=== PATIENT | male | born 1960 | race Caucasian/White ===

== ENCOUNTER 2020-11-27 15:02 | Inpatient (IN) | payer BC, MEDICAID, SELFPAY ==
[~2020-11-27] VITALS: Ht 165.1 cm; Wt 86.2 kg
[2020-11-27 15:29] VITALS: BP 117/68
--- NOTE | 2020-11-27 15:30 | NUR ---
placed on HFNC 40L, 100% Fi02.
--- NOTE | 2020-11-27 15:33 | NUR ---
biba to bed 09
[2020-11-27 15:35] LABS: BASOPHILS % (AUTO) 0.2 % (0.0-2.0); HEMATOCRIT 40.8 % (36-52); HEMOGLOBIN 14.6 g/dL (12.0-18.0); LYMPHOCYTES # (AUTO) 0.5 K/uL (2.0-11.5); LYMPHOCYTES % (AUTO) 6.1 % (20.5-51.1); MEAN CORPUSCULAR HEMOGLOBIN 32 pg (27-31); MEAN CORPUSCULAR HGB CONC 36 g/dL (33-37); MEAN CORPUSCULAR VOLUME 89.6 fL (80-94); MONOCYTES # (AUTO) 0.6 K/uL (0.8-1.0); MONOCYTES % (AUTO) 7.3 % (1.7-9.3); NEUTROPHILS # (AUTO) 7.3 K/uL (1.8-7.7); NEUTROPHILS % (AUTO) 86.4 % (42.2-75.2); PLATELET COUNT (AUTO) 318 K/uL (140-450); RED BLOOD CELL COUNT(AUTO) 4.55 MIL/uL (4.20-6.10); RED CELL DISTRIBUTION WIDTH 13.9 % (11.6-13.7); WHITE BLOOD COUNT (AUTO) 8.4 K/uL (4.8-10.8)
[2020-11-27] MEDS ORDERED: cefTRIAXone 1,000 MG VIAL ONE (15:47)
[2020-11-27 15:50] LABS: ALBUMIN 2.3 g/dL (3.4-5.0); ANION GAP 13.5 (8-16); CARBON DIOXIDE 23.1 mmol/L (21-32); CREATININE 1.2 mg/dL (0.6-1.3); TOTAL BILIRUBIN 0.9 mg/dL (0.0-1.0)
[2020-11-27 15:59] LABS: POTASSIUM 2.6 mmol/L (3.5-5.1)
--- NOTE | 2020-11-27 16:01 | NUR ---
per EMS, brother information . no name given.
--- NOTE | 2020-11-27 16:08 | NUR ---
60 y/o male biba from home O2 sat at 58% on room air per medic. Told by family everyone COVID +. Pt initially on NRB 15L at 70% O2, on arrival switched to high flow with NRB 15L O2 sat 97% currently. Pt shows labored breathing with some retractions noted. RR shallow and even/symmetrical. PMH: HTN NKA
[2020-11-27] MEDS ORDERED: POTASSIUM CHL 20 MEQ/NACL 0.9% 1,000 ML IV ONE (16:15)
[2020-11-27] MEDS ORDERED: POTASSIUM CHL 20 MEQ/NACL 0.9% 1,000 ML IV SCH (16:40)
--- NOTE | 2020-11-27 16:40 | NUR ---
IV 20G ESTABLISHED IN PTS RIGHT FOREARM. GOOD BLOOD RETURN.
--- NOTE | 2020-11-27 16:47 | NUR ---
Bing NORWOOD walked to lab.
[2020-11-27] MEDS ORDERED: LORazepam 2 MG/ML VIAL IVP ONE ×3 (17:15→20:45)
--- NOTE | 2020-11-27 18:11 | NUR ---
DR. LAKE PAGED TO INFORM OF PTS O2 SAT 84% AND RR 43. PT IS ALOC WITH SOFT RESTRAINTS AND 1 MG ATIVAN GIVEN. WAITING FOR FURTHER ORDERS
--- NOTE | 2020-11-27 18:15 | NUR ---
Per Dr. Cabrera states, "Bipap if the pt can tolerte it, otherwise intubate if full code and family ok with it". RT at bedside made aware of bipap order. Spoke with brother Kavon for possible intubation, brother gives verbal consent for intubation.
--- NOTE | 2020-11-27 18:21 | NUR ---
RT at pt bedside, states pt unable to tolerate bipap and recommends intubation. Dr. Barton states, "wants to try bipap, not intubate at this time". Pt O2 84%, RR 50. Pt is ALOC pulling clothes off, attempting to get out of bed. Dr. Barton states, "give more ativan". Another mg of ativan given at this time.
--- NOTE | 2020-11-27 18:45 | NUR ---
RT at pt bedside to switch pt from high flow 40L and NRB 15L to BIPAP per Dr. Cabrera orders.
--- NOTE | 2020-11-27 18:56 | NUR ---
Pt on BIPAP settings at: IPAP 16, EPAP 10, rate 20, 100% O2. SPO2 at 72%, RR 56 , RT at bedside. Pt not tolerating well, pulling at mask, attempting to remove.
--- NOTE | 2020-11-27 19:16 | NUR ---
Report given to SOCORRO Muller, transferred care at this time.
[2020-11-27] MEDS ORDERED: DEXAMETHASONE 10 MG/ML VIAL IVP ONE (19:25)
[2020-11-27] MEDS ORDERED: NACL 0.9% 1,000 ML IV ONE (19:25)
--- NOTE | 2020-11-27 19:31 | NUR ---
RECEIVED REPORT FROM ALLISON QUINTANILLA.
--- NOTE | 2020-11-27 19:31 | NUR ---
MAEGAN Hubbard spoke with family member Kavon, gave consent if emergency to intubate.
--- NOTE | 2020-11-27 19:37 | NUR ---
MD SAL AT BEDSIDE TO ASSESS PT. PT A/O X 1. PT CONTINUOUSLY TRYING TO PULL OFF BIPAP AND STRUGGLING TO GET OUT OF BED. RESPIRATIONS REMAIN AT 47 O2 SAT WITH BIPAP INPLACE 96%. RESPIRATORY AT BEDSIDE.
[2020-11-27] MEDS ORDERED: KETAMINE 10 MG/ML UD SYR **ER IVP ONE (19:40)
[2020-11-27] MEDS ORDERED: KETAMINE 500 MG/5 ML VIAL ONE (19:44)
[2020-11-27] MEDS ORDERED: INTUBATION KIT MC ONE (20:02)
--- NOTE | 2020-11-27 20:02 | NUR ---
DR SAL REASSESSED AFETR RECEIVING 25MG OF KETAMINE. PT WILL BE INTUBATED AT THIS TIME. RESPIRATORY AT BEDSIDE WITH MD AND RN
[2020-11-27] MEDS ORDERED: PROPOFOL 1000 MG/100 ML PREMIX 100 ML IV ONE ×2 (20:14→20:45)
[2020-11-27] MEDS ORDERED: fentaNYL citrate 0.05 MG/ML VIAL IVP ONE (20:45)
[2020-11-27] MEDS ORDERED: fentaNYL citrate 0.05 MG/ML VIAL ONE (20:47)
[2020-11-27] MEDS ORDERED: LORazepam 2 MG/ML VIAL ONE (20:47)
--- NOTE | 2020-11-27 21:09 | NUR ---
PT INTUBATED AT 2031 BY MAEGAN MABRY WITH MD SAL AT BEDSIDE. INTUBATED WITH 7.5 ET TUBE, 23 AT TEETH AND 24 AT LIP LINE. 16 FR OG TUBE PLACED, PLACEMENT CHECKED, 16 FR F/C INSERTED WITH CLEAR SOUTH URINE RETURN. PT ON VOLUME CONTROL - 100%, RATE 22, FLOW 50, PEEP 10. PROPROFAL RUNNING AT 17 MCG, BOLUS OF NS, AND KCL 20MEQ/NS 0.9%. POST INTUBATION CHEST XRAY DONE. TUBE WITH APPROPRIATE PLACEMENT
[2020-11-27 21:20] VITALS: BP 68/37
--- NOTE | 2020-11-27 21:23 | NUR ---
RT CHANGED VENT SETTINGS TO PRESSURE CONTROL - PRESSURE 20, 100% O2, PEEP 10, AND RATE 22.
[2020-11-27] MEDS: PROPOFOL 1000 MG/100 ML PREMIX 100 ML IV PRN (21:29)
[2020-11-27] MEDS ORDERED: ETOMIDATE 20 MG/10 ML VIAL IVP ONE (22:00)
[2020-11-27] MEDS ORDERED: SUCCINYLCHOLINE CHLORIDE 200 MG/10 ML VIAL IVP ONE ×2 (22:00→22:05)
[2020-11-27] MEDS ORDERED: KETAMINE 500 MG/5 ML VIAL IVP ONE (22:05)
[2020-11-27] MEDS ORDERED: NOREPINEPHRINE 4 MG/4 ML VIAL IV ONE (22:56)
[2020-11-27] MEDS: NOREPINEPHRINE 4 MG in DEXTROSE 5% 250 ML IV PRN (23:00)
--- NOTE | 2020-11-27 23:34 | NUR ---
POST CHARTING - CALLED TO BESIDE PT DESAT W/ NRB+HFNC 40L 100% PT SPO2 FELL INTO HIGH 80S W/ RESPIRATIONS 40-60BPM RECOMMENDED INTUBATION DUE TO PT CONFUSION AND WOB PT PLACED ON BIPAP PER ED DR RODGERS - PT NEEDED 16/10 BUR 20 PT CONTINUES TO APPEAR ANXIOUS, CONFUSED, AND UTILIZING ACCESSORY MUSCLES. PT CONTINUING TO PULL AT MASK AND ATTEMPTING TO REMOVED CLOTHING. SPO2 IN 90s WITH RESPIRATIONS SAME 40-50s. POST ANXIETY MEDS PT CONTINUES TO BE TACHYPNEIC AND UTILIZING ACCESSORY MUSCLES. ED DR SAL + PA CAME TO BEDSIDE AND RE-ASSESSED PT AND PT WAS INTUBATED. 7.5 ETT @ 23CM (TEETH) PT INITIALLY PLACED ON VC AND PIP WAS HIGH AND PT WAS PLACED ON PC Pinsp 20 +10 f22 100% FIO2 AMBU AT BESIDE VENT PLUGGED INTO RED OUTLET WILL CONTINUE TO MONITOR Addendum: 11/27/20 at 2351 by YAZANAA CORRECTION - WHILE ON NRB + HFNC PT FELL INTO HIGH 70s/LOW 80s
[2020-11-28] VITALS (28 sets, daily range): BP systolic 91–138; BP diastolic 55–93
[2020-11-28] MEDS ORDERED: ALBUTEROL HFA MDI 90 MCG/ACTUATION 8 GM INH PRN (00:35)
[2020-11-28] MEDS ORDERED: DOCUSATE SODIUM 100 MG GELCAP PO PRN (00:35)
[2020-11-28] MEDS ORDERED: ONDANSETRON 4 MG/2 ML VIAL IM/IVP PRN (00:35)
[2020-11-28] MEDS ORDERED: POTASSIUM CHLORIDE 10 MEQ TABER PO PRN (00:35)
[2020-11-28] MEDS ORDERED: HYDROcodone/APAP 7.5/325 MG 1 TAB PO PRN (00:35)
[2020-11-28] MEDS ORDERED: ACETAMINOPHEN 325 MG TAB PO PRN (00:35)
--- NOTE | 2020-11-28 00:41 | NUR ---
EMPTIED 700ML OF URINE FROM F/C
--- NOTE | 2020-11-28 01:05 | NUR ---
RECEIVED REPORT FROM DIRECTOR IT PROJECT. PT WAS TRANSFERRED VIA GURNEY X2. PT ETT TO VENT. A/C PC- FIO2 100%, RATE-22, PEEP-10. RESPIRATION EVEN AND UNLABORED. LUNG SOUNDS DIMINISHED UPON AUSCULTATION. OGT IN PLACE CLAMPED. ABDOMEN SOFT, FLAT, NON-TENDER. PERIPHERAL ACCESSES ON THE RIGHT FOREARM 20G. INFUSING LEVOPHED @ 4MCG/MIN, PROPOFOL @ 15MCG/KG/MIN. LEFT FOREARM 18G INFUSING NS WITH 20MEQ K+ @ 100MLS/HR. SKIN WARM, DRY AND INTACT. HOB ELEVATED, BED LOW AND LOCKED, SAFETY PRECAUTIONS OBSERVED, ISOLATION PRECAUTION MAINTAINED. WILL CONTINUE TO MONITOR.
--- NOTE | 2020-11-28 01:10 | NUR ---
MRSA SWAB OBTAINED AND SENT TO THE LAB.
[2020-11-28] MEDS: NACL 0.9% 1,000 ML IV SCH ×3 (01:23→09:58)
--- NOTE | 2020-11-28 01:33 | NUR ---
Patient will be admitted to care of DR LAKE. Admited to ICU. Will go to room BED 5. Belongings list completed. Report to MORIAH QUINTANILLA.
[2020-11-28] MEDS: PROPOFOL 1000 MG/100 ML PREMIX 100 ML IV PRN ×2 (01:54→09:25)
[2020-11-28 02:24] LABS: PROTHROMBIN TIME 10.1 secs (10.8-13.4)
--- NOTE | 2020-11-28 02:30 | NUR ---
PT CONDITION REMAINS UNCHANGED, WILL CONTINUE TO MONITOR.
[2020-11-28 02:40] LABS: CHOL/HDL RATIO 4.4 (1-4.5); FREE T4 (FREE THYROXINE) 1.42 ng/dL (0.76-1.46); THYROID STIMULATING HORMONE 1.13 uIU/mL (0.34-3.74)
--- NOTE | 2020-11-28 04:00 | NUR ---
MORNING CARE PROVIDED. TURNED AND REPOSITIONED. WILL CONTINUE TO MONITOR.
--- NOTE | 2020-11-28 05:30 | NUR ---
GLUCERNA 1.2 STARTED @ SLOW RATE OF 10 MLS/HR, FWF 200ML Q4H. WILL CONTINUE TO MONITOR.
--- NOTE | 2020-11-28 06:00 | NUR ---
SPOKE TO CANDY( BROTHER) AND HE CONSENTED FOR PICC LINE INSERTION PER MD'S ORDER. GAVE UPDATE ABOUT PT'S CONDITION. ALL QUESTIONS ANSWERED.
--- NOTE | 2020-11-28 06:54 | NUR ---
PATIENT HAS BEEN SCREENED AND CATEGORIZED HIGH NUTRITION RISK. PATIENT WILL BE SEEN WITHIN 1-2 DAYS OF ADMISSION. 11/29/20-11/30/20 ELMO NOBLE MS, RDN
--- NOTE | 2020-11-28 07:15 | NUR ---
ENDORSED PT TO DAY SHIFT RN FOR CONTINUITY OF CARE.
--- NOTE | 2020-11-28 07:30 | NUR ---
BEDSIDE REPORT RECEIVED FROM INFANTRYMAN NURSE MORIAH, PT SEDATED TO RASS -3 WITH PROPOFOL AT 20MCG/KG/MIN, DRY WT 83KG, ETT TO VENT ACPC 100% FIO2, RR 22, PEEP 10, EQUAL CHEST RISE AND FALL, NO DISTRESS NOTED, SKIN WARM DRY COLOR WNL, SR ON MONITOR, ON LEVOPHED AT 4MCG/MIN, BP WNL, IVF NS AT 100ML/HR, PIVs TO RFA 20G & LEFT FA 18G, SITES WNL, OGT IN PLACE, GLUCERNA INFUSING AT 10ML/HR, ABD SOFT NON DISTENDED, MARION CATH IN PLACE, DRAINING CLEAR DARK YELLOW URINE TO GRAVITY. PT IN BILAT SOFT WRIST RESTRAINTS, NO INJURIES NOTED, PLAN OF CARE REVIEWED, ALL SAFETY MEASURES IN PLACE,
--- NOTE | 2020-11-28 08:32 | NUR ---
DR MACKEY AT BEDSIDE.
--- NOTE | 2020-11-28 08:35 | NUR ---
DR MACKEY AT [facility]
[2020-11-28] MEDS: ASCORBIC ACID 500 MG TAB PO SCH (09:26)
[2020-11-28] MEDS: AZITHROMYCIN 250 MG TAB PO SCH (09:26)
[2020-11-28] MEDS: ZINC SULF 220 MG CAP PO SCH (09:26)
[2020-11-28 10:06] LABS: BASOPHILS % (AUTO) 0.4 % (0.0-2.0); HEMATOCRIT 39.8 % (36-52); HEMOGLOBIN 13.7 g/dL (12.0-18.0); LYMPHOCYTES # (AUTO) 0.5 K/uL (2.0-11.5); LYMPHOCYTES % (AUTO) 4.8 % (20.5-51.1); MEAN CORPUSCULAR HEMOGLOBIN 32 pg (27-31); MEAN CORPUSCULAR HGB CONC 35 g/dL (33-37); MEAN CORPUSCULAR VOLUME 91.6 fL (80-94); MONOCYTES # (AUTO) 0.6 K/uL (0.8-1.0); MONOCYTES % (AUTO) 5.7 % (1.7-9.3); NEUTROPHILS # (AUTO) 9.5 K/uL (1.8-7.7); NEUTROPHILS % (AUTO) 89.1 % (42.2-75.2); PLATELET COUNT (AUTO) 288 K/uL (140-450); RED BLOOD CELL COUNT(AUTO) 4.34 MIL/uL (4.20-6.10); RED CELL DISTRIBUTION WIDTH 14.5 % (11.6-13.7); WHITE BLOOD COUNT (AUTO) 10.7 K/uL (4.8-10.8)
[2020-11-28 10:25] LABS: ALBUMIN 2.1 g/dL (3.4-5.0); CREATININE 1.3 mg/dL (0.6-1.3); TOTAL BILIRUBIN 0.7 mg/dL (0.0-1.0)
[2020-11-28] MEDS ORDERED: KCL 20 MEQ/WATER INJ PREMIX 200 ML IV ONE (11:00)
--- NOTE | 2020-11-28 11:00 | NUR ---
Reva PARIKH STARTED PER ORDER FOR HYPOKALEMIA 3.0 THIS AM
[2020-11-28] MEDS: NOREPINEPHRINE 4 MG in DEXTROSE 5% 250 ML IV PRN (12:13)
--- NOTE | 2020-11-28 14:00 | NUR ---
BP WNL, LEVOPHED HELD FOR NOW
--- NOTE | 2020-11-28 16:05 | NUR ---
PT REMAINS ON DOCUMENTED VENT SETTINGS. PT SEDATED NOT IN ANY DISTRESS AT THIS TIME. ETT SECURE WITH A PATENT AIRWAY..
[2020-11-28] MEDS ORDERED: remdesivir COMMUNICATION ORDER 1 EA MISC MC PRN (16:40)
--- NOTE | 2020-11-28 17:31 | NUR ---
CHG WIPE DONE, ORAL CARE DONE, MARION CARE DONE, LINENS CHANGED, OGT RESIDUAL <120, FEEDING RATE INCREASED TO 20ML/HR. PT REMAINS ON PROPOFOL FOR SEDATION TO RASS -3, K RIDER CONTINUES TO INFUSE, IV SITES WNL, AWAITING PICC LINE NURSE FOR PICC INSERTION.
--- NOTE | 2020-11-28 18:41 | NUR ---
PICC LINE NURSE YANCI AT BEDSIDE
--- NOTE | 2020-11-28 18:53 | NUR ---
TELEPHONE CONSENT OBTAINED FOR CONVALESCENT PLASMA TRANSFUSION FROM PT'S BROTHER CANDY, 2 NURSE VERIFIED
--- NOTE | 2020-11-28 20:00 | NUR ---
RECEIVED REPORT FROM DAY SHIFT RN. PT ETT TO VENT. A/C PC- FIO2 75%, RATE-22, PEEP-10. RESPIRATION EVEN AND UNLABORED. LUNG SOUNDS DIMINISHED UPON AUSCULTATION. CHEST EXPANSION SYMMETRICAL. OGT TO FEEDING RUNNING GLUCERNA 1.2 @20MLS/HR WITH FWF [id number]. ABDOMEN SOFT, FLAT, NON-TENDER. PERIPHERAL ACCESSES ON THE RIGHT FOREARM 20G. LEFT FOREARM 18G. RIGHT UPPER ARM PICC LINE. ALL LINES ASYMPTOMATIC, PATENT AND INTACT. PT ON PROPOFOL @ 30 MCG/KG/HR AND NS @ 100ML/HR. SKIN WARM, DRY AND INTACT. MARION CATHETER IN PLACE DRAINING TO GRAVITY. HOB ELEVATED, BED LOW AND LOCKED, SAFETY PRECAUTIONS OBSERVED, ISOLATION PRECAUTION MAINTAINED. WILL CONTINUE TO MONITOR.
[2020-11-28] MEDS: FAMOTIDINE 20 MG/2 ML VIAL IV SCH (20:24)
--- NOTE | 2020-11-28 22:00 | NUR ---
INCREASED FEEDING RATE TO 30 MLS/HR. 60 RESIDUALS NOTED. WILL CONTINUE TO MONITOR PT.
[2020-11-29] VITALS (32 sets, daily range): BP systolic 99–141; BP diastolic 56–88
--- NOTE | 2020-11-29 | NUR ---
PT WAS TURNED AND REPOSITIONED. PRESSURE AREAS OFF LOADED. SUCTIONED AND ORAL CARE PROVIDED. WILL CONTINUE TO MONITOR.
--- NOTE | 2020-11-29 | NUR ---
TURNED AND REPOSITIONED PT. PRESSURE AREAS OFFLOADED. WILL CONTINUE TO MONITOR.
--- NOTE | 2020-11-29 02:31 | NUR ---
INCREASED FEEDING RATE TO 40MLS/HR(GOAL RATE). WILL CONTINUE TO MONITOR.
--- NOTE | 2020-11-29 04:00 | NUR ---
MORNING CARE PROVIDED. ORAL CARE, MARION CARE, MATHEW CARE PROVIDED. TURNED AND REPOSITIONED. PRESSURE AREAS OFF LOADED. WILL CONTINUE TO MONITOR.
[2020-11-29] MEDS: NACL 0.9% 1,000 ML IV SCH ×2 (05:22→17:25)
[2020-11-29] MEDS: PROPOFOL 1000 MG/100 ML PREMIX 100 ML IV PRN ×4 (05:23→21:41)
[2020-11-29] MEDS ORDERED: POTASSIUM CHLORIDE 20% 40 MEQ/15 ML UDC GT PRN (06:00)
[2020-11-29 06:16] LABS: BASOPHILS % (AUTO) 0.4 % (0.0-2.0); HEMATOCRIT 38.5 % (36-52); LYMPHOCYTES # (AUTO) 0.4 K/uL (2.0-11.5); LYMPHOCYTES % (AUTO) 3.8 % (20.5-51.1); MEAN CORPUSCULAR HEMOGLOBIN 32 pg (27-31); MEAN CORPUSCULAR HGB CONC 34 g/dL (33-37); MEAN CORPUSCULAR VOLUME 93.2 fL (80-94); MONOCYTES # (AUTO) 0.8 K/uL (0.8-1.0); MONOCYTES % (AUTO) 6.4 % (1.7-9.3); NEUTROPHILS # (AUTO) 10.5 K/uL (1.8-7.7); NEUTROPHILS % (AUTO) 89.4 % (42.2-75.2); PLATELET COUNT (AUTO) 282 K/uL (140-450); RED BLOOD CELL COUNT(AUTO) 4.13 MIL/uL (4.20-6.10); RED CELL DISTRIBUTION WIDTH 14.5 % (11.6-13.7); WHITE BLOOD COUNT (AUTO) 11.8 K/uL (4.8-10.8)
[2020-11-29 07:05] LABS: CREATININE 0.9 mg/dL (0.6-1.3)
--- NOTE | 2020-11-29 07:30 | NUR ---
RECEIVED REPORT FROM PALLET SORTER RN. ETT TO VENT. A/C P/C FIO2 75% R 22, P 10. RASS -3, FLACC 0, RESPIRATION EVEN AND UNLABORED. OGT TO FEEDING RUNNING GLUCERNA 1.2 @ 40MLS/HR WITH FWF [id number]. ABDOMEN SOFT, FLAT, NON-TENDER. IV ON THE RIGHT FOREARM 20G. LEFT FOREARM 18G. RIGHT UPPER ARM PICC LINE. ON PROPOFOL @ 30 MCG/KG/HR AND NS @ 100ML/HR. SKIN WARM, DRY AND INTACT. MARION CATHETER IN PLACE DRAINING TO GRAVITY. HOB ELEVATED, BED LOW AND LOCKED, SAFETY PRECAUTIONS OBSERVED, ISOLATION PRECAUTION MAINTAINED. WILL CONTINUE TO MONITOR.
[2020-11-29 08:11] LABS: ANION GAP 15.6 (8-16); CARBON DIOXIDE 22.4 mmol/L (21-32)
[2020-11-29] MEDS ORDERED: remdesivir CLINICAL MONITORING 1 EA MISC MC PRN (08:20)
--- NOTE | 2020-11-29 08:50 | NUR ---
DUE MORNING MEDS GIVEN. ORAL CARE DONE, MARION CARE DONE. REPOSITIONED PT
[2020-11-29] MEDS: AZITHROMYCIN 250 MG TAB PO SCH (09:00)
[2020-11-29] MEDS: ASCORBIC ACID 500 MG TAB PO SCH (09:00)
[2020-11-29] MEDS: FAMOTIDINE 20 MG/2 ML VIAL IV SCH ×2 (09:00→20:12)
[2020-11-29] MEDS: ZINC SULF 220 MG CAP PO SCH (09:00)
[2020-11-29] MEDS ORDERED: REMDESIVIR (EUA) 200 MG in NACL 0.9% 100 ML IV SCH (10:00)
[2020-11-29 10:06] LABS: T4 (THYROXINE) 8.4 ug/dL (4.5-12.0)
--- NOTE | 2020-11-29 11:24 | NUR ---
SOCIAL WORK NOTE: Patient's Orientation Unable To Assess Information Provided By CANDY ZIEGLER - Comments SW WAS UNABLE TO MEET PATIENT AT BEDSIDE. SW COMPLETED ASSESSMENT WITH PATIENT'S BROTHER. Children'S Tutor Nursery, Realtionship and Phone Number CANDY DALEY [phone] Healthcare Power of Plate Glass Polisher No Does Patient Have a POLST No Identifying Problems No Social Work Triggers Is A Social Work Consult Needed No Mandate Report Filed No Explanation Of Identifying Problems PATIENT IS A 60-YEAR-OLD MAELE ADMITTED FOR COVID, HYPOXIA, AND HYPONATREMIA. PATIENT HAS PMHX OF HYPERTENSION. PATIENT'S BROTHER DENIED HX OF SUBSTANCE ABUSE OR MENTAL HEALTH. Admitted From Home Pre-Admission Level Of Functioning Status Independent/Ambulatory Prior Resources/Services Used In Last 12 Months No Prior Resources Used Prior DME No Prior DME Used Dialysis Comments N/A Living Situation Lives With Family House Patient Had Caregiver No Home Support No Caregiver Issues Financial Issues No Known Financial Issue Factors/Needs No D/C Needs Identified Pt/Rep Participated In Discharge Plan Yes Patient/Family Agress With Discharge Plan Yes Discharge Plan Comments TENTATIVE DISCHARGE PLAN IS FOR PATIENT TO RETURN HOME. DC Plan Status Initiated
--- NOTE | 2020-11-29 11:29 | NUR ---
11/29/20 RD INITIAL ASSESSMENT COMPLETED. PLEASE REFER TO NUTRITION ASSESSMENT UNDER CARE ACTIVITY FOR ESTIMATED NUTRITIONAL NEEDS. RD RECOMMENDATIONS: 1. RECOMMEND CONTINUE TF GLUCERNA 1.2@40MLS/HR (PROVIDES 1152KCAL, 57.6G PROTEIN - WITH CALORIES FROM PROPOFOL, SUFFICIENT TO MEET ~75% ESTIMATED ENERGY AND PROTEIN NEEDS). 2. CONSIDER INCREASING TF RATE IF TOLERATED WELL BY PATIENT TO GLUCERNA 1.2@ 55MLS/HR (WILL MEET 100% ESTIMATED ENERGY & PROTEIN NEEDS) 3. F/U 2-3 DAYS; HIGH RISK ANDREA SANZ MBA, RD
--- NOTE | 2020-11-29 12:00 | NUR ---
FOLLOWED UP WITH BLOOD BANK REGARDING CONVALESCENT PLASMA. BBK WILL THAW PLASMA AND WILL CALL WHEN READY
--- NOTE | 2020-11-29 15:20 | NUR ---
CONVALESCENT PLASMA TRANSFUSION STARTED. PRODUCT AND PT ID VERIFIED BY 2 RN PRIOR
[2020-11-29 15:26] LABS: MAGNESIUM 2.9 mg/dL (1.8-2.4); PHOSPHORUS 2.3 mg/dL (2.5-4.9)
--- NOTE | 2020-11-29 16:10 | NUR ---
CONVALESCENT PLASMA TRANSFUSION. NO ADVERSE REACTIONS NOTED, VSS
--- NOTE | 2020-11-29 19:23 | NUR ---
RECEIVED REPORT FROM DAY SHIFT RN. PT ETT TO VENT. A/C PC- FIO2 75%, RATE-22, PEEP-10. RESPIRATION EVEN AND UNLABORED. LUNG SOUNDS DIMINISHED UPON AUSCULTATION. CHEST EXPANSION SYMMETRICAL. OGT TO FEEDING RUNNING GLUCERNA 1.2 @ 40MLS/HR WITH FWF 200ML Q4HR. ABDOMEN SOFT, FLAT, NON-TENDER. PERIPHERAL ACCESSES ON THE RIGHT FOREARM 20G. LEFT FOREARM 18G. RIGHT UPPER ARM PICC LINE. ALL LINES ASYMPTOMATIC, PATENT AND INTACT. PT ON PROPOFOL @ 45 MCG/KG/HR AND NS @ 100ML/HR. SKIN WARM, DRY AND INTACT. MARION CATHETER IN PLACE DRAINING TO GRAVITY. HOB ELEVATED, BED LOW AND LOCKED, SAFETY PRECAUTIONS OBSERVED, ISOLATION PRECAUTION MAINTAINED. WILL CONTINUE TO MONITOR.
--- NOTE | 2020-11-29 22:00 | NUR ---
PT CONDITION REMAINS UNCHANGED. WILL CONTINUE TO MONITOR.
--- NOTE | 2020-11-29 23:02 | NUR ---
PT RECEIVED ON PC 20 +10, f22 ON 75% FIO2 WHICH WAS TITRATED TO 70% AND RADHA WELL. PT HAS 7.5 ETT SECURED AT 23CM. AMBU IS AT BEDSIDE & VENT PLUGGED INTO RED OUTLET. WILL CONTINUE TO MONITOR
[2020-11-30] VITALS (35 sets, daily range): BP systolic 86–141; BP diastolic 45–92
[2020-11-30] MEDS: NACL 0.9% 1,000 ML IV SCH ×3 (02:53→21:17)
[2020-11-30] MEDS: PROPOFOL 1000 MG/100 ML PREMIX 100 ML IV PRN ×3 (02:54→14:00)
[2020-11-30 06:34] LABS: BASOPHILS % (AUTO) 0.3 % (0.0-2.0); EOSINOPHILS % (AUTO) 0.1 % (0.0-4.0); HEMATOCRIT 39.7 % (36-52); HEMOGLOBIN 13.5 g/dL (12.0-18.0); LYMPHOCYTES # (AUTO) 0.7 K/uL (2.0-11.5); LYMPHOCYTES % (AUTO) 4.7 % (20.5-51.1); MEAN CORPUSCULAR HEMOGLOBIN 32 pg (27-31); MEAN CORPUSCULAR HGB CONC 34 g/dL (33-37); MEAN CORPUSCULAR VOLUME 93.9 fL (80-94); MONOCYTES # (AUTO) 0.4 K/uL (0.8-1.0); MONOCYTES % (AUTO) 2.5 % (1.7-9.3); NEUTROPHILS # (AUTO) 14.3 K/uL (1.8-7.7); NEUTROPHILS % (AUTO) 92.4 % (42.2-75.2); PLATELET COUNT (AUTO) 221 K/uL (140-450); RED BLOOD CELL COUNT(AUTO) 4.23 MIL/uL (4.20-6.10); RED CELL DISTRIBUTION WIDTH 14.4 % (11.6-13.7); WHITE BLOOD COUNT (AUTO) 15.5 K/uL (4.8-10.8)
[2020-11-30 07:03] LABS: ANION GAP 13.8 (8-16); CARBON DIOXIDE 24.9 mmol/L (21-32); CREATININE 0.8 mg/dL (0.6-1.3); POTASSIUM 3.7 mmol/L (3.5-5.1); TOTAL BILIRUBIN 1.1 mg/dL (0.0-1.0)
--- NOTE | 2020-11-30 07:32 | NUR ---
RECEIVED REPORT FROM ZYGLO INSPECTOR RN. ETT TO VENT. A/C P/C FIO2 60% R 22, P 10. RASS -3, FLACC 0, RESPIRATION EVEN AND UNLABORED. OGT TO FEEDING RUNNING GLUCERNA 1.2 @ 40MLS/HR WITH FWF [id number]. ABDOMEN SOFT, FLAT, NON-TENDER. IV ON THE RIGHT FOREARM 20G. LEFT FOREARM 18G. RIGHT UPPER ARM PICC LINE. ON PROPOFOL @ 45 MCG/KG/HR AND NS @ 100ML/HR. SKIN WARM, DRY AND INTACT. MARION CATHETER IN PLACE DRAINING TO GRAVITY. HOB ELEVATED, BED LOW AND LOCKED, SAFETY PRECAUTIONS OBSERVED, ISOLATION PRECAUTION MAINTAINED. WILL CONTINUE TO MONITOR.
[2020-11-30] MEDS: ASCORBIC ACID 500 MG TAB PO SCH (09:00)
[2020-11-30] MEDS: ZINC SULF 220 MG CAP PO SCH (09:00)
[2020-11-30] MEDS: AZITHROMYCIN 250 MG TAB PO SCH (09:00)
[2020-11-30] MEDS: FAMOTIDINE 20 MG/2 ML VIAL IV SCH ×2 (09:00→20:31)
--- NOTE | 2020-11-30 09:15 | NUR ---
DUE MORNING MEDS GIVEN. ORAL CARE, MARION CARE DONE. REPOSITIONED PT
--- NOTE | 2020-11-30 09:25 | NUR ---
PT DESATURATING TO 79%. PT FIO2 INCREASED TO 100%. PT TACHYPNEIC @38 RR. NURSE AWARE OF PT STATUS. WILL CONTINUE TO MONITOR.
--- NOTE | 2020-11-30 09:30 | NUR ---
SEEN BY DR SIMMONS. NOTIFIED ABOUT INCREASED LABOR OF BREATHING. ORDERED MORPHINE DRIP
--- NOTE | 2020-11-30 09:35 | NUR ---
SPO2 ON 100% IS 91%. WILL CONTINUE TO MONITOR.
[2020-11-30] MEDS: MORPHINE SULFATE 50 MG in NACL 0.9% 45 ML IV PRN ×2 (10:28→17:57)
--- NOTE | 2020-11-30 10:46 | NUR ---
DISCHARGE PLANNING: CONTACTED CARLTON FORRESTER [phone] AT [facility] TO PROVIDE UPDATES, NO ANSWER. LEFT MESSAGE. WILL FOLLOW UP. Addendum: 11/30/20 at 1217 by Shellie Ochoa CONTACTED [employer] [facility] [place] [phone] OPT 6, ABLE TO SPEAK TO LEONOR [employer] COSMETIC ASSEMBLER. PER LEONOR THEY HAVE ONE DAY 11/27/2020 APPROVED FOR NOW WITH AUTH [id number]. SHE ALSO STATED THERE IS NO CM ASSIGNED YET AT THIS TIME. SHE ALSO STATED THAT WE NEED TO FOLLOW UP AGAIN FOR CM ASSIGNED. I ASKED HER IF WE HAVE TO TRANSFER THE PATIENT TO CONTRACTED FACILITY. PER LEONOR SHE IS NOT ABLE TO ANSWER THAT BECAUSE SHE IS NOT A GRAB JACK WORKER. WILL FOLLOW UP. Addendum: 11/30/20 at 1550 by Shellie Ochoa CONTACTED [facility] AGAIN AT [phone] OPT 6, ABLE TO SPEAK TO SOUTH. PER SOUTH, I NEED TO CALL THE PRIOR AUTH NUMBER WHICH IS THE SAME NUMBER THAT I CALLED. SHE STATED SHE WILL GO AHEAD AND TRANSFER ME. PICKED UP BY JERILYN Livingston PER JERILYN CM ASSIGNED IS CRISTIN MCKINNEY, HOWEVER HE DOES NOT HAVE THE NUMBER NOR E MAIL AVAILABLE AT THIS TIME. HE STATED THEY JUST ASSIGNED THE CM AND WILL NOT HAVE ACCESS TO RELAY THE MESSAGE TO HER. HE STATED THAT IF THEY NEED ANYTHING THEY WILL CALL US FOR SURE. I INQUIRED IF THEY WANT TO TRANSFER THE PATIENT SINCE WE ARE NOT CONTRACTED WITH [facility]. PER JERILYN HE IS NOT THE RIGHT PERSON TO ASK. INFORMED HIM THAT IS WHY I I ASKED FOR THE CM ASSIGNED. HE STATED TO CALL BACK AGAIN TOMORROW TO FOLLOW UP. WILL FOLLOW UP. Addendum: 12/01/20 at 1141 by Shellie Ochoa CM CONTACTED [facility] AT [phone] OPT 6, ABLE TO SPEAK TO [facility] JULIA Rice I ASKED TO BE TRANSFERRED TO A . SHE STATED THEY DO NOT HAVE ANY CONTACT INFORMATION OF THE CM ASSIGNED. PER JULIA, THE CM WILL BE THE ONE TO CONTACT US IF THEY HAVE ANY QUESTIONS OR RECOMMENDATIONS AND THE CASE IS STILL UNDER REVIEW. I INQUIRED IF THEY WANT THEIR PATIENT TO BE TRANSFERRED TO A CONTRACTED FACILITY, SHE ANSWER SHE WOULD NOT KNOW THAT. I ASKED IF HOW LONG WILL IT TAKE FOR THE CM TO REVIEW THE CASE. SHE STATED IT WILL TAKE UP TO 5 DAYS. AND I TOLD HER WE HAVE TO WAIT THAT LONG AND PATIENT HAVE BEEN HERE 4 DAYS AND WE DID NOT RECEIVE ANY AUTH FROM THEM. SHE STATED IT HAS BEEN APPROVED FOR 1 DAY AUTH [id number]. SHE STATED THE CM WILL CONTACTING ME IF THEY HAVE ANY QUESTIONS OR CONCERNS. Addendum: 12/01/20 at 1254 by Shellie Ochoa COORDINATOR MIGUEL ANGEL MADE AWARE. HE STATED HE WILL TRY TO REACH OUT WELL. PER MIGUEL ANGEL COORDINATOR, FATOUMATA CROWLEY IS THE CM ASSIGNED BUT THE REP THAT HE SPOKE TO DID NOT PROVIDE ANY CONTACT INFO FOR FATOUMATA. INFORMED HIM THAT I HAVE FATOUMATA'S DIRECT NUMBER. CONTACTED FATOUMATA AT [phone], NO ANSWER. LEFT MESSAGE. RECEIVED A CALL BACK FROM CARLTON HAM STATING THAT SHE IS TRYING TO GET A HOLD OF HER FORENSIC AUDIT EXPERT TO DISCUSS REPATRIATION. SHE STATED THEY DO NOT TRANSFER OUT PATIENT'S THAT ARE COVID, HOWEVER SHE WANTED TO MAKE SURE THAT IT STILL THE SAME. SHE STATED SHE WILL CALL ME BACK FOR ANSWERS LATER TODAY. WILL FOLLOW UP. Addendum: 12/01/20 at 1547 by Shellie Ochoa CM RECEIVED A CALL BACK FROM CARLTON HAM OF [employer] STATING THAT PATIENT NEED NOT BE TRANSFERRED AT THIS TIME DUE TO TO HIS CONDITION. SHE ALSO STATED THAT SHE WILL BE FAXING AUTH UNTIL THE AND TODAY IS STILL PENDING REVIEW. PROVIDED HER OF THE FAX NUMBER. Addendum: 12/02/20 at 1149 by Shellie Ochoa CM PER CARLTON HAM OF [employer] [facility], PATIENT HAS AN HMO WELL AND REQUESTED FOR THE FAMILY TO CALL [facility] [phone] FOR THEM TO BE ABLE TO SELECT A MEDICAL GROUP. CONTACTED PATIENT'S BROTHER CANDY LOW AT [phone]. PER CANDY THEY ALREADY SPOKE TO CHANDRA AND WILL BE CALLING US BACK WITH THE IPA INFORMATION. WILL FOLLOW UP. Addendum: 12/03/20 at 1348 by Shellie Ochoa CM RECEIVED A CALL FROM OUT PATIENT CARLTON BOJORQUEZ [phone] AT [facility], STATING THAT PATIENT IS ASSIGNED TO [facility] IPA EFFECTIVE 11/06/2020 AND ALLIED IS DELEGATED. PCP ASSIGNED IS DR. JOSE ANGEL QUIGLEY [phone]. SHE STATED TO INFORM THE FAMILY TO CALL CUSTOMER SERVICE AT [phone] IF THEY CHOOSE TO CHANGE THE IPA. REACHED OUT TO PATIENT'S BROTHER CANDY. PROVIDED HIM ALL THE INFORMATION. PER CANDY, I NEED TO CONTACT HIS BROTHER'S HOST/HOSTESS RESTAURANT LEN ESCAMILLA AT [phone]. ABLE TO SPEAK TO LEN. HE STATED HE IS HAVING A HARD TIME CONTACTING THE INSURANCE AND WHEN HE WAS ABLE TO, THE INFORMATION THEY PROVIDED IS LIMITED. HE ALSO MENTIONED THAT INSURANCES NOW CHANGED THEIR PROTOCOL AND HARD FOR THEM BROKERS TO GET MORE INFORMATION. PROVIDED HIM OF THE CUSTOMER'S SERVICE NUMBER IF HE HAS ANY QUESTIONS. PER LEN, HE WILL REACH OUT TO THE INSURANCE. ANI WAFER FAB OPERATOR MADE AWARE. WILL FOLLOW UP. Addendum: 12/04/20 at 1130 by Shellie Ochoa CM CONTACTED CARLTON HAM OF [facility] TO PROVIDE UDATE, NO ANSWER. LEFT MESSAGE. WILL FOLLOW UP. Addendum: 12/04/20 at 1428 by Shellie Ochoa CM CARLTON RINCON OF [facility] [phone] INFORMED OF THIS PATIENT. PROVIDED HER UPDATES ON THE PATIENT'S CONDITION. RECEIVED A CALL BACK FROM CARLTON HAM OF [employer]. UPDATED HER OF THE PATIENT'S CONDITION. PROVIDED ANGEL AT [facility]'S NUMBER. Addendum: 12/07/20 at 1400 by Shellie Ochoa CM REMAINS INTUBATED TO VENT, FIO2 100%, PEEP 14, 02 SAT 92% AND SEDATED WITH MORPHINE AND PROPOFOL. CONTACTED CARLTON RINCON OF [employer], NO ANSWER. LEFT MESSAGE. WILL FOLLOW UP. Addendum: 12/07/20 at 1403 by Shellie Ochoa CONTACTED CARLTON HAM [facility] AT [phone], NO ANSWER. LEFT MESSAGE. WILL FOLLOW UP. Addendum: 12/07/20 at 1612 by Shellie Ochoa RECEIVED A CALL BACK FROM CARLTON HAM [facility], SHE STATED [facility] WILL BE DELEGATED. SHE ALSO MENTIONED THAT SHE SPOKE TO CARLTON RINCON AT [facility] WELL AND PENDING AUTH FROM [facility] IS [id number]. PER CARLTON HAM TO CALL HER IF THERE WILL BE ANY ISSUES. CONTACTED CARLTON RINCON OF [facility] TO CONFIRM AUTH, NO ANSWER. LEFT MESSAGE. WILL FOLLOW UP. Addendum: 12/08/20 at 1114 by Shellie Ochoa CM CARLTON RINCON OF [facility] UPDATED OF THE PATIENT'S CONDITION. SHE PROVIDED THE SAME TRACKING NUMBER [id number] WHAT CARLTON HAM OF [employer] PROVIDED ME YESTERDAY. SHE STATED IT IS AUTHORIZED UNTIL YESTERDAY AND PENDING CLINICAL REVIEW FOR TODAY. SHE ALSO MENTIONED LONG THE PLAN HAD BEEN NOTIFIED ON THE DAY OF ADMISSION, THEY ARE OK WITH LATE NOTIFICATION SINCE [facility] ASSIGNED IT LATE. Addendum: 12/08/20 at 1157 by Shellie cOhoa CM UPDATED CLINICALS SENT TO [facility] AT [phone]. Addendum: 12/14/20 at 1219 by Shellie Ochoa CM CONTACTED SERGEY [employer] [place] AT [phone] TO PROVIDE UPDATES AND TO FOLLOW UP WITH AUTH, NO ANSWER. UNABLE TO LEAVE MESSAGE, MAILBOX IS FULL. WILL FOLLOW UP. Addendum: 12/14/20 at 1542 by Shellie Ochoa CM CONTACTED CM SERGEY [employer] [facility] AGAIN, NO ANSWER. UNABLE TO LEAVE MESSAGE DUE TO MAILBOX IS FULL. WILL FOLLOW UP. Addendum: 12/15/20 at 1423 by Shellie Ochoa CM REMAINS INTUBATED TO VENT, FIO2 80%, PEEP13, O2 SAT 95%. SEDATED WITH PROPOFOL AND MORPHINE. ON LEVOPHED DRIP. WAS ON DILTIAZEM DRIP YESTERDAY FOR HR 170'S, CONVERTED TO SR 2/9 AT 0000. PER NEPHRO - NO REQUIREMENT FOR STEEPLE JACK AT THIS TIME. PER PULMO - PLAN FOR TRACH ONCE STABLE FROM HYPOXEMIA. SURGERY CONSULTED. Addendum: 12/15/20 at 1425 by Shellie Ochoa CM CARLTON CARD [facility] UPDATED OF THE PATIENT'S CONDITION HOWEVER HALF-WAY THROUGH THE UPDATES SHE STATED SHE WILL CALL ME BACK BECAUSE HER [employer] AUDIT EXPERT IS CALLING HER. WILL FOLLOW UP. Addendum: 12/16/20 at 1205 by Shellie Ochoa CM REMAINS ORALLY INTUBATED TO VENT, FIO2 80%, PEEP 13, O2 SAT 95%. PER PULMO - WILL LIKELY REQUIRE TRACHEOSTOMY ONCE MORE STABLE FROM A HYPOXEMIA STANDPOINT. Addendum: 12/21/20 at 0912 by Shellie Ochoa CONTACTED [facility] AT [phone] TO PROVIDE UPDATES, NO ANSWER. LEFT MESSAGE. WILL FOLLOW UP. Addendum: 12/25/20 at 1208 by Shellie Ochoa CM [facility] [phone] UPDATED OF THE PATIENT'S CONDITION. PER [facility] STAY IS AUTHORIZED TRACKING NUMBER [id number]. SHE ASKED IF GOALS OF CARE HAVE BEEN DISCUSSED WITH THE FAMILY, INFORMED HER THAT DR. SIMMONS WILL DISCUSS IT ( DISCUSSED DURING BED HUDDLE) WITH THE FAMILY. Addendum: 12/28/20 at 1138 by Shellie Ochoa CM REMAINS IN ICU, INTUBATED TO VENT FIO2 100%, PEEP 16, O2 SAT 87%. ON LEVOPHED AND PHENYLEPHRINE DRIPS. DISCUSSED DURING BED HUDDLE, NO MORE HD PER NEPHANGEL. PER DR. SIMMONS WILL CONTACT FAMILY TO DISCUSS CODE STATUS. Addendum: 12/28/20 at 1141 by Shellie Ochoa CM CONTACTED [facility] TO PROVIDE UPDATE, NO ANSWER. LEFT MESSAGE.
--- NOTE | 2020-11-30 11:00 | NUR ---
STARTED MORPHINE DRIP 1MG/HR
--- NOTE | 2020-11-30 11:19 | NUR ---
PAGED REGARDING CRITICAL ABG RESULTS WAITING FOR CALL BACK.
[2020-11-30] MEDS: REMDESIVIR (EUA) 100 MG in NACL 0.9% 100 ML IV SCH (12:27)
--- NOTE | 2020-11-30 18:00 | NUR ---
RASS -3, FLACC 0, RESPIRATION EVEN AND UNLABORED. A/C P/C FIO2 80% R 22, P 10.
--- NOTE | 2020-11-30 20:00 | NUR ---
RECEIVED REPORT FROM DAY SHIFT RN. PT ETT TO VENT. A/C PC- FIO2 80%, RATE-22, PEEP-10. SATURATION ON THE 80'S. RESPIRATION EVEN AND LABORED. LUNG SOUNDS DIMINISHED UPON AUSCULTATION. CHEST EXPANSION SYMMETRICAL. OGT TO FEEDING RUNNING GLUCERNA 1.2 @ 40MLS/HR WITH FWF 200ML Q4HR. ABDOMEN SOFT, FLAT, NON-TENDER. PERIPHERAL ACCESSES ON THE RIGHT FOREARM 20G. LEFT FOREARM 18G. RIGHT UPPER ARM PICC LINE. ALL LINES ASYMPTOMATIC, PATENT AND INTACT. PT ON PROPOFOL @ 35 MCG/KG/HR, NS @ 100ML/HR, MORPHINE 2MG/HR. SKIN WARM, DRY AND INTACT. MARION CATHETER IN PLACE DRAINING TO GRAVITY. HOB ELEVATED, BED LOW AND LOCKED, SAFETY PRECAUTIONS OBSERVED, ISOLATION PRECAUTION MAINTAINED. WILL CONTINUE TO MONITOR.
--- NOTE | 2020-11-30 20:34 | NUR ---
DR. MACKEY PAGED AT THIS TIME. PT DESSATING ON THE 70'S. RT ON THE UNIT. INCREASED FIO2 TO 100%. AWAITING FOR DR. MACKEY'S CALL.
--- NOTE | 2020-11-30 20:48 | NUR ---
SPOKE TO DR. MACKEY. UPDATED ABOUT PT CONDITION AND READ BACK RECENT ABG RESULT @ 11AM. DR. MACKEY ORDERED TO INCREASE PEEP TO 12. RT AWARE. WILL CONTINUE TO MONITOR PT.
--- NOTE | 2020-11-30 20:53 | NUR ---
2047 PATIENTS SATS WERE DECREASING. DR MACKEY CALLED BY RN. DR MACKEY ORDERED TO INCREASE PEEP FROM 10 T0 12CM
--- NOTE | 2020-11-30 22:13 | NUR ---
PAGED DR. MACKEY AGAIN. PT STILL ON THE . AWAITING FOR RETURN CALL. Addendum: 11/30/20 at 2216 by Christian Evans RN OXYGEN SATURATION THE 'S
--- NOTE | 2020-11-30 22:34 | NUR ---
SPOKE TO DR. MACKEY. UPDATED MD ABOUT PT CONDITION. SATURATION ON THE 70'S. ORDERED TO PRONE PT FOR 16 HRS AND SUPINE 8HRS. HOLD FEEDING WHEN PRONE. WILL CONTINUE TO MONITOR.
--- NOTE | 2020-11-30 23:15 | NUR ---
PT PLACED ON PRONE POSITION. PT TOLERATED PROCEDURE WELL. SATURATION WENT UP TO THE 80'S.
[2020-12-01] VITALS (35 sets, daily range): BP systolic 87–130; BP diastolic 51–79
--- NOTE | 2020-12-01 01:00 | NUR ---
OXYGEN SATURATION NOW ON THE 90'S. WILL CONTINUE TO MONITOR.
[2020-12-01] MEDS: MORPHINE SULFATE 50 MG in NACL 0.9% 45 ML IV PRN ×2 (02:22→13:15)
--- NOTE | 2020-12-01 03:00 | NUR ---
PT CONDITION REMAINS UNCHANGED. WILL CONTINUE TO MONITOR.
--- NOTE | 2020-12-01 05:00 | NUR ---
MORNING CARE PROVIDED. NO DISTRESS NOTED. WILL CONTINUE TO MONITOR.
[2020-12-01 05:47] LABS: BASOPHILS % (AUTO) 0.1 % (0.0-2.0); EOSINOPHILS % (AUTO) 0.1 % (0.0-4.0); HEMATOCRIT 38.6 % (36-52); LYMPHOCYTES # (AUTO) 0.6 K/uL (2.0-11.5); LYMPHOCYTES % (AUTO) 3.6 % (20.5-51.1); MEAN CORPUSCULAR HEMOGLOBIN 32 pg (27-31); MEAN CORPUSCULAR HGB CONC 34 g/dL (33-37); MONOCYTES # (AUTO) 0.3 K/uL (0.8-1.0); MONOCYTES % (AUTO) 1.7 % (1.7-9.3); NEUTROPHILS # (AUTO) 15.2 K/uL (1.8-7.7); NEUTROPHILS % (AUTO) 94.5 % (42.2-75.2); PLATELET COUNT (AUTO) 125 K/uL (140-450); RED BLOOD CELL COUNT(AUTO) 4.07 MIL/uL (4.20-6.10); WHITE BLOOD COUNT (AUTO) 16.1 K/uL (4.8-10.8)
[2020-12-01 06:36] LABS: ALBUMIN 1.8 g/dL (3.4-5.0); ANION GAP 12.1 (8-16); CARBON DIOXIDE 25.8 mmol/L (21-32); CREATININE 0.9 mg/dL (0.6-1.3); POTASSIUM 3.9 mmol/L (3.5-5.1)
--- NOTE | 2020-12-01 07:22 | NUR ---
RECEIVED WINDOW-SIDE REPORT FROM SILO PAINTER NURSE MORIAH FOR CONTINUITY OF CARE. PATIENT IS LYING COMFORTABLY ON PRONE POSITION, RASS -3, DRY WEIGHT 83 KG, FLACC 0. RESPIRATION EVEN AND UNLABORED ON ETT TO VENT, AC/PC FIO2 100%, RATE 22, PEEP 12, SPO2 AT 97% AT THIS TIME. IV ON GRAHAM PICC LINE, RFA 20G, LFA 18G, CLEAN AND INTACT, RUNNING LEVOPHED 4 MCG/MIN, MORPHINE 5 MG/HR, PROPOFOL 50 MCG/KG/HR, NS 100 ML/HR. OG-TUBE IN PLACE, FEEDING HELD DUE TO PRONE AT THIS TIME. SKIN CLEAN AND DRY. MARION IN PLACE, DRAINING WITH GRAVITY. SAFETY MEASURES IN PLACE. HOB ELEVATED 30 DEGREE AND BED IN LOW POSITION.
--- NOTE | 2020-12-01 09:15 | NUR ---
DR SIMMONS IS ROUNDING ON PATIENT.
[2020-12-01] MEDS: FAMOTIDINE 20 MG/2 ML VIAL IV SCH ×2 (09:54→20:35)
[2020-12-01] MEDS: ASCORBIC ACID 500 MG TAB PO SCH (09:55)
[2020-12-01] MEDS: AZITHROMYCIN 250 MG TAB PO SCH (09:55)
[2020-12-01] MEDS: ZINC SULF 220 MG CAP PO SCH (09:55)
--- NOTE | 2020-12-01 09:58 | NUR ---
CHECKED OGT RESIDUAL RECEIVED 125 ML WHITE AND YELLOWISH RESIDUAL, FLUSHED. ADMINISTERED SCHEDULED AM MEDS VIA OGT AND SUBQ, FLUSHED BEFORE AND AFTER MEDS.OGT FEEDING CONTINUE TO HOLD DUE TO PRONE. PROVIDED HYGIENE CARE AND REPOSITIONED PATIENT'S ARM, PATIENT TOLERATED FAIR, FLACC 0. RESPIRATION SHALLOW, UNLABORED, [place] ON ETT TO VENT AC/PC FIO2 100% RATE 22 PEEP 12, SPO2 AT 97% AT THIS TIME. SAFETY MEASURES IN PLACE. HOB ELEVATED IN REVERSE [place], BED IN LOW POSITION, AND BED LOCKED.
--- NOTE | 2020-12-01 10:51 | NUR ---
RECEIVED CALL FROM PATIENT'S SISTER NMA, UPDATE HER WITH PATIENT'S CURRENT CONDITION AND ANSWERED ALL HER QUESTIONS, NAM WAS AWARE.
[2020-12-01] MEDS: PROPOFOL 1000 MG/100 ML PREMIX 100 ML IV PRN ×3 (11:16→20:00)
--- NOTE | 2020-12-01 12:00 | NUR ---
DR HU IS ROUNDING ON PATIENT, ORDERED TO D/C IVF NS 100 ML/HR. STOPPED IVF PER DR HU ORDER.
[2020-12-01] MEDS: REMDESIVIR (EUA) 100 MG in NACL 0.9% 100 ML IV SCH (12:10)
--- NOTE | 2020-12-01 12:10 | NUR ---
SCHEDULED REMDESIVIR GIVEN, REPOSITIONED PATIENT'S ARMS, PATIENT TOLERATED FAIR. SAFETY MEASURES IN PLACE.
[2020-12-01] MEDS: NOREPINEPHRINE 4 MG in DEXTROSE 5% 250 ML IV PRN (13:00)
--- NOTE | 2020-12-01 14:40 | NUR ---
PATIENT TURNED FROM PRONE TO SUPINE NO EVENTS NOTED. ETT IN POSITION 23CM AT TEETH. SPO2 >90% ON FIO2 80% NOTED. WILL CONTINUE TO MONITOR.
--- NOTE | 2020-12-01 14:45 | NUR ---
WITH ASSIST FROM RT, SUPINE PATIENT. POSITIONED PATIENT COMFORTABLY, PILLOWS USED TO OFFLOADED PRESSURE, ORAL CARE, SUCTIONING, MARION CARE PROVIDED, PATIENT TOLERATED FAIR. RESPIRATION EVEN, SHALLOW, AND UNLABORED ON ETT TO VENT, AC/PC FIO2 80%, RATE 22, PEEP 12, SPO2 AT 88%, FLACC 0. SAFETY MEASURES IN PLACE. BED IN LOW POSITION, HOB ELEVATED 30 DEGREE AND BED LOCKED.
--- NOTE | 2020-12-01 15:06 | NUR ---
OGT FEEDING GLUCERNA STARTED AT 40 ML/HR.
--- NOTE | 2020-12-01 15:08 | NUR ---
PATIENT DESATURATING TO 80%, BUMPED FIO2 TO 100%.
--- NOTE | 2020-12-01 15:23 | NUR ---
LFA 18 PERIPHERAL IV INFILTRATED, REMOVED IV, CANNULA INTACT, NO BLEEDING ON IV SITE.
--- NOTE | 2020-12-01 19:14 | NUR ---
ENDORSED TO ROLLER ENGRAVER NURSE MORIAH FOR CONTINUITY OF CARE. SAFETY MEASURES IN PLACE.
--- NOTE | 2020-12-01 20:00 | NUR ---
RECEIVED REPORT FROM DAY SHIFT RN. PT ETT TO VENT. A/C PC- FIO2 110%, RATE-22, PEEP-12. RESPIRATION EVEN AND UNLABORED. LUNG SOUNDS DIMINISHED UPON AUSCULTATION. CHEST EXPANSION SYMMETRICAL. OGT TO FEEDING RUNNING GLUCERNA 1.2 @ 40MLS/HR WITH FWF 200ML Q4HR. ABDOMEN SOFT, FLAT, NON-TENDER. PERIPHERAL ACCESSES ON THE RIGHT FOREARM 20G. LEFT FOREARM 18G. RIGHT UPPER ARM PICC LINE. ALL LINES ASYMPTOMATIC, PATENT AND INTACT. PT ON PROPOFOL @ 40MCG/KG/HR, MORPHINE 5MG/HR, LEVOPHED @ 4MCG/MIN. SKIN WARM, DRY AND INTACT. MARION CATHETER IN PLACE DRAINING TO GRAVITY. HOB ELEVATED, BED LOW AND LOCKED, SAFETY PRECAUTIONS OBSERVED, ISOLATION PRECAUTION MAINTAINED. WILL CONTINUE TO MONITOR. Addendum: 12/02/20 at 2137 by Christian Evans RN 100% FIO2 NOT 110%
--- NOTE | 2020-12-01 23:30 | NUR ---
GAVE UPDATE TO NAM(SISTER) WITH HER DEVELOPMENT EXPERT. ALL QUESTIONS ANSWERED.
[2020-12-02] VITALS (32 sets, daily range): BP systolic 83–133; BP diastolic 46–80
--- NOTE | 2020-12-02 | NUR ---
PT WAS TURNED AND REPOSITIONED. PRESSURE AREAS OFF LOADED. WILL CONTINUE TO MONITOR.
[2020-12-02] MEDS: MORPHINE SULFATE 50 MG in NACL 0.9% 45 ML IV PRN ×3 (00:16→20:32)
--- NOTE | 2020-12-02 01:25 | NUR ---
PT PLACED ON PRONE POSITION. PT TOLERATED PROCEDURE WELL.
[2020-12-02] MEDS: PROPOFOL 1000 MG/100 ML PREMIX 100 ML IV PRN ×4 (01:58→19:30)
--- NOTE | 2020-12-02 03:00 | NUR ---
PT CONDITION REMAINS UNCHANGED. OXYGEN SATURATION ON A 100% @ 90% FIO2. REMAINS ON PRONE POSITION.
[2020-12-02 06:12] LABS: ALBUMIN 1.6 g/dL (3.4-5.0); ANION GAP 10.9 (8-16); CREATININE 0.9 mg/dL (0.6-1.3); POTASSIUM 4.9 mmol/L (3.5-5.1)
[2020-12-02] MEDS: FAMOTIDINE 20 MG/2 ML VIAL IV SCH ×2 (09:33→20:16)
[2020-12-02] MEDS: ZINC SULF 220 MG CAP PO SCH (09:36)
[2020-12-02] MEDS: AZITHROMYCIN 250 MG TAB PO SCH (09:36)
[2020-12-02] MEDS: ASCORBIC ACID 500 MG TAB PO SCH (09:37)
[2020-12-02] MEDS: REMDESIVIR (EUA) 100 MG in NACL 0.9% 100 ML IV SCH (11:42)
[2020-12-02] MEDS: NOREPINEPHRINE 4 MG in DEXTROSE 5% 250 ML IV PRN (12:37)
--- NOTE | 2020-12-02 17:17 | NUR ---
12/02/20 RD FOLLOW UP COMPLETED PLEASE REFER TO NUTRITION ASSESSMENT UNDER CARE ACTIVITY FOR ESTIMATED NUTRITIONAL NEEDS. 1. RECOMMEND GLUCERNA 1.2 @ 90 ML/HR X 8 HOURS WITH PROSOURCE BID ; FLUSH 300 ML Q12H -THIS PROVIDES 864 ML OF VOLUME, 1156 KCAL, AND 81 GM OF PROTEIN, MEETING >80% OF ESTIMATED KCAL AND PROTEIN NEEDS. 2. F/U 2-3 DAYS; HIGH RISK SHAMA VALENTIN, RD
--- NOTE | 2020-12-02 19:52 | NUR ---
RECEIVED PATIENT FROM AM SHIFT. PATIENT WAS SEEN AND ASSESSED. FOUND PT IN SUPINE POSITION. PATIENT IS INTUBATED WITH ETT SIZE 7.5 AND SECURED WITH ANCHOR-FAST AT 23cm. PATIENT IS ON VENT SETTINGS: AC/PC 32, RR 30, PEEP 8, FiO2 90% WITH SPO2 OF 92%. AMBU BAG AT BEDSIDE. VENT IS PLUGGED IN RED OUTLET. ALARMS SET AND AUDIBLE TO ENVIRONMENT. SUCTIONED SMALL AMOUNT OF WHITE YELLOW THICK SECRETIONS FROM ETT. AIRWAY IS PATENT. AUSCULTATION REVEALS BILATERAL RALES BREATH SOUNDS. HHN TX GIVEN AT THIS TIME AND PT TOLERATED TX WELL WITH NO ADVERSE REACTION. PATIENT IS IN NO APPARENT RESPIRATORY DISTRESS AT THIS TIME. WILL CONTINUE TO MONITOR PATIENT. Addendum: 12/03/20 at 0559 by Ralf Moore RT WRONG PT.
--- NOTE | 2020-12-02 19:52 | NUR ---
RECEIVED PATIENT FROM AM SHIFT. PATIENT WAS SEEN AND ASSESSED. FOUND PT IN SUPINE POSITION. PATIENT IS INTUBATED WITH ETT SIZE 7.5 AND SECURED WITH ANCHOR-FAST AT 23cm. PATIENT IS ON VENT SETTINGS: AC/PC 20, RR 22, PEEP 12, FiO2 60% WITH SPO2 OF 96%. AMBU BAG AT BEDSIDE. VENT IS PLUGGED IN RED OUTLET. ALARMS SET AND AUDIBLE TO ENVIRONMENT. SUCTIONED MODERATE AMOUNT OF YELLOW THICK SECRETIONS FROM ETT. AIRWAY IS PATENT. AUSCULTATION REVEALS BILATERAL COARSE BREATH SOUNDS. WILL CONTINUE TO MONITOR PATIENT.
--- NOTE | 2020-12-02 20:00 | NUR ---
RECEIVED REPORT FROM DAY SHIFT RN. PT ETT TO VENT. A/C PC- FIO2 60%, RATE-22, PEEP-12. RESPIRATION EVEN AND UNLABORED. LUNG SOUNDS DIMINISHED UPON AUSCULTATION. CHEST EXPANSION SYMMETRICAL. OGT TO FEEDING RUNNING GLUCERNA 1.2 @ 60MLS/HR WITH FWF 200ML Q4HR. ABDOMEN SOFT, FLAT, NON-TENDER. PERIPHERAL ACCESSES ON THE RIGHT FOREARM 20G. RIGHT UPPER ARM PICC LINE. ALL LINES ASYMPTOMATIC, PATENT AND INTACT. PT ON PROPOFOL @ 55 MCG/KG/HR, MORPHINE 6MG/HR, LEVOPHED @ 2MCG/MIN. SKIN WARM, DRY AND INTACT. MARION CATHETER IN PLACE DRAINING TO GRAVITY. HOB ELEVATED, BED LOW AND LOCKED, SAFETY PRECAUTIONS OBSERVED, ISOLATION PRECAUTION MAINTAINED. WILL CONTINUE TO MONITOR.
--- NOTE | 2020-12-02 20:10 | NUR ---
FEEDING RATE INCREASED TO 70MLS/HR. PT TOLERATING FEEDING WELL. WILL CONTINUE TO MONITOR.
--- NOTE | 2020-12-02 22:00 | NUR ---
TURNED AND REPOSITIONED. PRESSURE AREAS OFF LOADED. WILL CONTINUE TO MONITOR.
[2020-12-03] VITALS (25 sets, daily range): BP systolic 92–138; BP diastolic 50–76
--- NOTE | 2020-12-03 | NUR ---
PT WAS PLACED ON PRONE POSITION. HELD FEEDING AT THIS TIME. PT TOLERATED PROCEDURE WELL. WILL CONTINUE TO MONITOR.
[2020-12-03] MEDS: PROPOFOL 1000 MG/100 ML PREMIX 100 ML IV PRN ×3 (00:37→20:30)
--- NOTE | 2020-12-03 04:00 | NUR ---
PT CONDITION REMAINS UNCHANGED. WILL CONTINUE TO MONITOR. Addendum: 12/03/20 at 0817 by Kellie Lira RN RN AT -0730 AM PT WAS SO RESTLESS AND DESATURATIN AT 88% AND rt WAS CALLED AND INCREASE PROFOPOL Addendum: 12/03/20 at 1513 by Kellie Lira RN RN pt. was desaturating at88% and resp. therapist was notified. Bp was 99/65, hence Levophed was up to 15 mcg/min and morphine drip down to 5 mg/hr Addendum: 12/03/20 at 1653 by Kellie Lira RN RN pt is warm and temp was 101.3 orally. Ice packs applied axillary and over the groin. tylenol 650 mg via gastric tube
[2020-12-03] MEDS: MORPHINE SULFATE 50 MG in NACL 0.9% 45 ML IV PRN ×2 (05:49→14:46)
[2020-12-03 06:06] LABS: BASOPHILS % (AUTO) 0.1 % (0.0-2.0); EOSINOPHILS # (AUTO) 0.2 K/uL (0-0.4); EOSINOPHILS % (AUTO) 1.9 % (0.0-4.0); HEMOGLOBIN 12.3 g/dL (12.0-18.0); LYMPHOCYTES # (AUTO) 0.5 K/uL (2.0-11.5); LYMPHOCYTES % (AUTO) 4.7 % (20.5-51.1); MEAN CORPUSCULAR HEMOGLOBIN 32 pg (27-31); MEAN CORPUSCULAR HGB CONC 33 g/dL (33-37); MEAN CORPUSCULAR VOLUME 96.2 fL (80-94); MONOCYTES # (AUTO) 0.3 K/uL (0.8-1.0); MONOCYTES % (AUTO) 2.3 % (1.7-9.3); NEUTROPHILS # (AUTO) 10.5 K/uL (1.8-7.7); PLATELET COUNT (AUTO) 98 K/uL (140-450); RED BLOOD CELL COUNT(AUTO) 3.84 MIL/uL (4.20-6.10); RED CELL DISTRIBUTION WIDTH 15.7 % (11.6-13.7); WHITE BLOOD COUNT (AUTO) 11.5 K/uL (4.8-10.8)
[2020-12-03 06:49] LABS: ALBUMIN 1.5 g/dL (3.4-5.0); ANION GAP 9.7 (8-16); CARBON DIOXIDE 29.7 mmol/L (21-32); POTASSIUM 4.4 mmol/L (3.5-5.1); TOTAL BILIRUBIN 2.6 mg/dL (0.0-1.0)
[2020-12-03] MEDS: FAMOTIDINE 20 MG/2 ML VIAL IV SCH ×2 (09:00→21:00)
[2020-12-03] MEDS: ZINC SULF 220 MG CAP PO SCH (09:00)
[2020-12-03] MEDS: ASCORBIC ACID 500 MG TAB PO SCH (09:00)
[2020-12-03] MEDS: NOREPINEPHRINE 4 MG in DEXTROSE 5% 250 ML IV PRN ×3 (09:08→20:00)
[2020-12-03] MEDS: REMDESIVIR (EUA) 100 MG in NACL 0.9% 100 ML IV SCH (12:10)
[2020-12-03] MEDS: ACETAMINOPHEN 650 MG/20.3 ML UDC PO PRN (16:55)
--- NOTE | 2020-12-03 19:55 | NUR ---
RECEIVED PATIENT FROM AM SHIFT. PATIENT WAS SEEN AND ASSESSED. FOUND PT IN SUPINE POSITION. PATIENT IS INTUBATED WITH ETT SIZE 7.5 AND SECURED WITH BITTING BLOCK ANCHOR-FAST AT 23cm. PATIENT IS ON VENT SETTINGS: AC/PC 20, RR 22, PEEP 13, FiO2 85% WITH SPO2 OF 80s%. AMBU BAG AT BEDSIDE. VENT IS PLUGGED IN RED OUTLET. ALARMS SET AND AUDIBLE TO ENVIRONMENT. SUCTIONED SMALL AMOUNT OF PINK TINGE SECRETIONS FROM ETT. AIRWAY IS PATENT. AUSCULTATION REVEALS BILATERAL RALES BREATH SOUNDS ON THE BASES AND CLEAR/ DIMINISHED ON THE UPPER LOBES. PATIENT IS IN NO APPARENT RESPIRATORY DISTRESS AT THIS TIME. WILL CONTINUE TO MONITOR PATIENT.
--- NOTE | 2020-12-03 19:56 | NUR ---
SPO2 IN 80s. TITRATED FiO2 FROM 85% TO 90%. SPO2 92%. PT TOLERATING WELL. RN NOTIFIED. WILL CONTINUE TO MONITOR PT.
--- NOTE | 2020-12-03 20:00 | NUR ---
RECEIVED REPORT FROM DAY SHIFT RN. PT ETT TO VENT. A/C PC- FIO2 85%, RATE-22, PEEP-13. ORAL MUCOSA PINK AND MOIST. RESPIRATION EVEN AND UNLABORED. LUNG SOUNDS DIMINISHED UPON AUSCULTATION. CHEST EXPANSION SYMMETRICAL. OGT TO FEEDING RUNNING GLUCERNA 1.2 @ 90MLS/HR WITH FWF 300ML Q12HR. ABDOMEN SOFT, FLAT, NON-TENDER. PERIPHERAL ACCESSES ON THE RIGHT FOREARM 20G. RIGHT UPPER ARM PICC LINE. ALL LINES ASYMPTOMATIC, PATENT AND INTACT. PT ON PROPOFOL @ 40MCG/KG/HR, MORPHINE 5MG/HR, LEVOPHED @ 15MCG/MIN. SKIN WARM, DRY AND INTACT. MARION CATHETER IN PLACE DRAINING TO GRAVITY. HOB ELEVATED, BED LOW AND LOCKED, SAFETY PRECAUTIONS OBSERVED, ISOLATION PRECAUTION MAINTAINED. WILL CONTINUE TO MONITOR.
--- NOTE | 2020-12-03 23:25 | NUR ---
PLACED PATIENT IN PRONE POSITION. PATIENT TOLERATED PROCEDURE WELL. SUCTION SMALL AMOUNT OF WHITE/YELLOW THICK SECRETIONS FROM ETT. ETT SECURED AND AIRWAY IS PATENT. BILATERAL BREATH SOUNDS ON AUSCULTATION. PATIENT IS IN NO RESPIRATORY DISTRESS AT THIS TIME. RNs AT BEDSIDE. WILL CONTINUE TO MONITOR PATIENT.
[2020-12-04] VITALS (31 sets, daily range): BP systolic 80–227; BP diastolic 47–75
[2020-12-04] MEDS: MORPHINE SULFATE 50 MG in NACL 0.9% 45 ML IV PRN ×3 (00:44→18:29)
--- NOTE | 2020-12-04 02:00 | NUR ---
PT CONDITION REMAINS UNCHANGED. WILL CONTINUE TO MONITOR.
[2020-12-04] MEDS: PROPOFOL 1000 MG/100 ML PREMIX 100 ML IV PRN ×5 (02:04→22:40)
[2020-12-04] MEDS: NOREPINEPHRINE 4 MG in DEXTROSE 5% 250 ML IV PRN ×2 (02:06→06:39)
[2020-12-04 05:54] LABS: BASOPHILS # (AUTO) 0.1 K/uL (0.00-0.22); BASOPHILS % (AUTO) 0.4 % (0.0-2.0); EOSINOPHILS # (AUTO) 0.4 K/uL (0-0.4); EOSINOPHILS % (AUTO) 2.9 % (0.0-4.0); HEMOGLOBIN 12.9 g/dL (12.0-18.0); LYMPHOCYTES # (AUTO) 0.6 K/uL (2.0-11.5); MEAN CORPUSCULAR HEMOGLOBIN 32 pg (27-31); MEAN CORPUSCULAR HGB CONC 33 g/dL (33-37); MEAN CORPUSCULAR VOLUME 96.8 fL (80-94); MONOCYTES # (AUTO) 0.2 K/uL (0.8-1.0); MONOCYTES % (AUTO) 1.4 % (1.7-9.3); NEUTROPHILS # (AUTO) 11.5 K/uL (1.8-7.7); NEUTROPHILS % (AUTO) 90.3 % (42.2-75.2); PLATELET COUNT (AUTO) 83 K/uL (140-450); RED BLOOD CELL COUNT(AUTO) 4.03 MIL/uL (4.20-6.10); RED CELL DISTRIBUTION WIDTH 16.1 % (11.6-13.7); WHITE BLOOD COUNT (AUTO) 12.7 K/uL (4.8-10.8)
[2020-12-04 06:43] LABS: ANION GAP 11.4 (8-16); CARBON DIOXIDE 29.7 mmol/L (21-32); POTASSIUM 4.1 mmol/L (3.5-5.1)
[2020-12-04] MEDS: FAMOTIDINE 20 MG/2 ML VIAL IV SCH ×2 (08:26→21:00)
[2020-12-04] MEDS: ZINC SULF 220 MG CAP PO SCH (08:27)
[2020-12-04] MEDS: ASCORBIC ACID 500 MG TAB PO SCH (08:27)
--- NOTE | 2020-12-04 08:28 | NUR ---
HEPARIN SQ WAS NOT GIVENTODAY BECAUSE OF LOW PLATELETS 83K
[2020-12-04] MEDS: NOREPINEPHRINE 8 MG in DEXTROSE 5% 250 ML IV PRN ×2 (10:13→16:25)
--- NOTE | 2020-12-04 10:25 | NUR ---
MONITOR SHOWS AT 0928 bp 0F 74/42. RECYCLED BP AT 0930 THREE TIMES AND WASNT SUCCESSFUL. BP CUFF WAS CHANGED AND REPOSITION RIGHT ARM AND RECYCLED bp AND GOT AT 0950 164/95. THE LEVOPHED DRIP WAS DECREASED TO 20MCG/MIN
--- NOTE | 2020-12-04 10:36 | NUR ---
BP WENT DOWN 74/43 SO PROFOPOL DOWN TO 35MCGKG/ MIN AND LEVOPHED RATE WAS INCREASED - SEE IV SPREADSHEET
--- NOTE | 2020-12-04 14:10 | NUR ---
THE 1300 bp OF SYSTOLIC 227 WAS AN ERROR
--- NOTE | 2020-12-04 19:30 | NUR ---
RECIEVED ENDORSMENT FROM DAY SHIFT RN, PT SEDATED RASS -3, IN SUPINE POSITION, BED LOW AND HOB 30 DEGREES, ETT TO VENT ACPC FIO2 100% PEEP 14 RATE 22, ST ON MONITOR, SKIN WARM AND DRY TO TOUCH, SKIN INTACT, PERIPHERAL PULSES PALPABLE, OGT TO FEEDING, RFA PERIPHER IV 20 GAUGE SALINE LOCKED, GRAHAM PICC INFUSING PROPOFOL, MORPHINE, LEVOPHED AND NS TKO, FC IN PLACE DRAINING VIA GRAVITY W/ DARM SOUTH URINE, PT SHOWING NO SIGNS OF ACUTE DISTRESS, SAFETY MEASURES IN PLACE, WILL CONTINUE WITH CURRENT POC
--- NOTE | 2020-12-04 21:12 | NUR ---
2109 proned patient due to sats at 77% on fio2 of 100%
--- NOTE | 2020-12-04 21:15 | NUR ---
REPOSITIONED PT TO PRONE
--- NOTE | 2020-12-04 21:45 | NUR ---
ADMINISTERED 2100H MEDICATIONS PER ORDERED
[2020-12-05] VITALS (24 sets, daily range): BP systolic 70–142; BP diastolic 36–76
[2020-12-05] MEDS: NOREPINEPHRINE 8 MG in DEXTROSE 5% 250 ML IV PRN ×3 (03:14→14:38)
[2020-12-05] MEDS: PROPOFOL 1000 MG/100 ML PREMIX 100 ML IV PRN ×3 (04:41→18:23)
[2020-12-05] MEDS: MORPHINE SULFATE 50 MG in NACL 0.9% 45 ML IV PRN ×3 (04:43→23:32)
[2020-12-05 06:16] LABS: ANION GAP 7.6 (8-16); CREATININE 1.1 mg/dL (0.6-1.3); POTASSIUM 4.6 mmol/L (3.5-5.1)
[2020-12-05 06:24] LABS: BASOPHILS # (AUTO) 0.1 K/uL (0.00-0.22); BASOPHILS % (AUTO) 0.6 % (0.0-2.0); EOSINOPHILS # (AUTO) 0.3 K/uL (0-0.4); EOSINOPHILS % (AUTO) 2.5 % (0.0-4.0); HEMATOCRIT 36.1 % (36-52); LYMPHOCYTES # (AUTO) 0.6 K/uL (2.0-11.5); LYMPHOCYTES % (AUTO) 5.4 % (20.5-51.1); MEAN CORPUSCULAR HEMOGLOBIN 32 pg (27-31); MEAN CORPUSCULAR HGB CONC 33 g/dL (33-37); MEAN CORPUSCULAR VOLUME 96.6 fL (80-94); MONOCYTES # (AUTO) 0.3 K/uL (0.8-1.0); MONOCYTES % (AUTO) 2.5 % (1.7-9.3); NEUTROPHILS # (AUTO) 9.8 K/uL (1.8-7.7); PLATELET COUNT (AUTO) 71 K/uL (140-450); RED BLOOD CELL COUNT(AUTO) 3.73 MIL/uL (4.20-6.10); RED CELL DISTRIBUTION WIDTH 16.4 % (11.6-13.7); WHITE BLOOD COUNT (AUTO) 11.1 K/uL (4.8-10.8)
--- NOTE | 2020-12-05 07:05 | NUR ---
ENDORSED TO DAY SHIFT RN FOR CONTINUITY OF CARE
--- NOTE | 2020-12-05 07:30 | NUR ---
RECEIVED PT ON PRONE POSITION VENTED VIA ETT,VSS ON LEVOPHED DRIP FOR THE BP, ON PROPOFOL DRIP AND MORPHINE DRIP , WITH OGT INTACT, WITH MARION CATHETER PATENT CONNECTED TO DRAINAGE BAG.
[2020-12-05] MEDS: ZINC SULF 220 MG CAP PO SCH (08:22)
[2020-12-05] MEDS: ASCORBIC ACID 500 MG TAB PO SCH (08:23)
[2020-12-05] MEDS: FAMOTIDINE 20 MG/2 ML VIAL IV SCH (08:23)
--- NOTE | 2020-12-05 10:50 | NUR ---
DR HILL HERE,SEEN PT,NOTED ALL PARAMETERS,DECREASED THE FIO2 TO 85%,RT INFORMED, CONTINUE TO MONITOR
--- NOTE | 2020-12-05 11:43 | NUR ---
DR MALAVE HERE,UPDATES GIVEN ON PT,NOTED ALL PARAMETERS,CONTINUE TO MONITOR
--- NOTE | 2020-12-05 12:30 | NUR ---
PT HEART RATE/MONITOR SHOWS AFIB WITH RVR -188 NOT SUSTAINED,BP-71/37/, DR KENNEDY INFORMED.WITH ORDER.
--- NOTE | 2020-12-05 14:20 | NUR ---
12/05/20 RD FOLLOW UP COMPLETED PLEASE REFER TO NUTRITION PROGRESS NOTE UNDER CARE ACTIVITY FOR ESTIMATED NUTRITION NEEDS. RD RECOMMENDATIONS: 1.CONTINUE GLUCERNA 1.2 @ 90 ML/HR X 8 HOURS WITH PROSOURCE BID ; FREE WATER FLUSH 300 ML Q12H -THIS PROVIDES 864 ML OF VOLUME, 1156 KCAL, AND 81 GM OF PROTEIN, MEETING >80% OF ESTIMATED KCAL AND PROTEIN NEEDS. 2. F/U 2-3 DAYS; HIGH RISK JACKIE REYES, RD
[2020-12-05] MEDS ORDERED: NACL 0.9% 1,000 ML IV ONE (15:05)
--- NOTE | 2020-12-05 16:00 | NUR ---
PT DEVELOPED AFIB WITH RVR UP TO 176, DR PEREZ INFORMED FOR CARDIOLOGY CONSULT, DR CASTELLANOS. DR CASTELLANOS PAGED THRU EXCHANGE AND IT IS DR MOISE SHOULDER SAWYER.
--- NOTE | 2020-12-05 16:24 | NUR ---
DR MOISE CALLED BACK FOR DR CASTELLANOS , ALL INFORMATIONS GIVEN TO HIM AND THE AFIBWITH RVR,HE SAID HE WILL CALL BACK.
--- NOTE | 2020-12-05 16:42 | NUR ---
DR MAJOR CALLED BACK PIPE LAYER HELPER DRILL OPERATOR AUTOMATIC, NOTED TO HIM OF THE AFIB WITH RVR AFTER TURNING HIM ON SUPINE. BUT FOR NOW PT HEART RATE BACK TO ST 104 ,BP STABLE.
--- NOTE | 2020-12-05 17:53 | NUR ---
DR MAJOR HERE,CHECKED THE CXR IMAGING, NOTED THAT THE PICC LINE TIP INTHE RA, ADVISE TO PULL BACK 2-3CM .PICC LINE NURSE COMING LATER,ENDORSED.
--- NOTE | 2020-12-05 18:42 | NUR ---
ASSISTED WITH ADL, HOURLYNROUNDING DONE.ALL ORDERS REVIEWED AND CARRIED OUT. FEEDING WELL TOLERATED.HR STABLE TO ST .
[2020-12-06] VITALS (20 sets, daily range): BP systolic 57–143; BP diastolic 32–99
--- NOTE | 2020-12-06 04:13 | NUR ---
PT WITH FLUCTUATING HEART RATE. SAME ELEVATED UP TO 187 THE DIRECTOR SERVICE WAS CALLED. HE SEEMS TO BE KNOWLEDGABLE OF PATIENTS CONDITION AND STATED HE WAS NOT NOT GOING TO GIVE THE PATIENT ANY MEDICATIONS I ASKED HIM FOR A PRN MEDICATION FOR ELEVATED HEART RATE. HE GAVE A ONETIME ORDER FOR LOPRESSOR 5 MGS IV. FOR SYSTOLIC ABOVE 160 . AT THIS TIME PATIENTS HEART RATE WAS 187. MEDICATION GIVEN LOPRESSOR 5 MGS. IV. SAME GIVEN TO ME WITH AN OVER RIDE BY THE CHARGE NURSE. AFTER ADMINISTRATION. PATIENT HEART RATE APPEARED IN THE 80 'S . WILL CONTINUE TO MONITOR THE PATIENT.
[2020-12-06] MEDS ORDERED: METOPROLOL 5 MG/5 ML VIAL ONE (04:28)
[2020-12-06] MEDS ORDERED: METOPROLOL 5 MG/5 ML VIAL IV ONE (04:30)
[2020-12-06 06:23] LABS: BASOPHILS % (AUTO) 0.2 % (0.0-2.0); EOSINOPHILS # (AUTO) 0.1 K/uL (0-0.4); HEMATOCRIT 35.4 % (36-52); HEMOGLOBIN 11.5 g/dL (12.0-18.0); LYMPHOCYTES # (AUTO) 0.5 K/uL (2.0-11.5); MEAN CORPUSCULAR HEMOGLOBIN 32 pg (27-31); MEAN CORPUSCULAR HGB CONC 32 g/dL (33-37); MEAN CORPUSCULAR VOLUME 97.9 fL (80-94); MONOCYTES # (AUTO) 0.3 K/uL (0.8-1.0); MONOCYTES % (AUTO) 2.7 % (1.7-9.3); NEUTROPHILS # (AUTO) 10.4 K/uL (1.8-7.7); PLATELET COUNT (AUTO) 62 K/uL (140-450); RED BLOOD CELL COUNT(AUTO) 3.62 MIL/uL (4.20-6.10); RED CELL DISTRIBUTION WIDTH 17.1 % (11.6-13.7); WHITE BLOOD COUNT (AUTO) 11.3 K/uL (4.8-10.8)
[2020-12-06 06:39] LABS: ANION GAP 9.5 (8-16); CARBON DIOXIDE 27.7 mmol/L (21-32); CREATININE 1.1 mg/dL (0.6-1.3); POTASSIUM 4.2 mmol/L (3.5-5.1)
[2020-12-06 07:17] LABS: LYMPHOCYTES % (AUTO) 4.4 % (20.5-51.1); NEUTROPHILS % (AUTO) 91.7 % (42.2-75.2)
[2020-12-06] MEDS ORDERED: ADENOSINE 6 MG/2 ML VIAL IVP ONE ×3 (07:25→07:45)
--- NOTE | 2020-12-06 07:45 | NUR ---
RECEIVED PT IN PRONE POSITION,VENTED VIA ETT, ON PROPOFOL, LEVOPHED DRIP, MORPHINE DRIP BP-121/59, AFIB WITH RVR 193.02 SATURATION-96%. PATIENT PUT BACK ON SUPINE POSITION. DR MAJOR INFORMED AND WITH ORDERS BY PHONE.
--- NOTE | 2020-12-06 08:00 | NUR ---
HR RESPONDED TO ADENOSINE GIVEN HR 105 SR,
[2020-12-06] MEDS: ZINC SULF 220 MG CAP PO SCH (08:31)
[2020-12-06] MEDS: FAMOTIDINE 20 MG/2 ML VIAL IV SCH ×3 (08:31→21:00)
[2020-12-06] MEDS: ASCORBIC ACID 500 MG TAB PO SCH ×2 (08:33→12:38)
--- NOTE | 2020-12-06 08:45 | NUR ---
PT HEART RATE WENT UP AGAIN TO 211, BP-99/78. DR MAJOR INFORMED, WITH ORDERS TO STRT AMIODARONE DRIP PER PROTOCOL
[2020-12-06] MEDS ORDERED: AMIODARONE 450 MG in DEXTROSE 5% 250 ML IV SCH ×2 (08:55→09:15)
[2020-12-06] MEDS ORDERED: AMIODARONE 150 MG/3 ML VIAL IV ONE (08:57)
[2020-12-06] MEDS: MORPHINE SULFATE 50 MG in NACL 0.9% 45 ML IV PRN ×2 (10:53→18:05)
[2020-12-06] MEDS: NOREPINEPHRINE 8 MG in DEXTROSE 5% 250 ML IV PRN ×2 (10:58→18:54)
[2020-12-06] MEDS: PROPOFOL 1000 MG/100 ML PREMIX 100 ML IV PRN ×2 (11:06→16:42)
--- NOTE | 2020-12-06 11:16 | NUR ---
PT HEART RATE NOW IS 74 ,SR ON THE MONITOR,BP-95/50.
--- NOTE | 2020-12-06 11:29 | NUR ---
HEART RATE RESPONDED TO AMIODARONE BOLUS AND DRIP INFUSING HR-74 SR , BP-95/50/O2 SAT-96%.
--- NOTE | 2020-12-06 11:30 | NUR ---
DR KENNEDY HERE ,NOTED ALL PARAMETERS, CONTINUE PLAN OF CARE.SHE WILL INFORM AND UPDATE THE FAMILY OF PT CONDITION.
[2020-12-06] MEDS: VASOPRESSIN 20 UNITS in NACL 0.9% 250 ML IV SCH (12:25)
--- NOTE | 2020-12-06 12:40 | NUR ---
AT 1220, BP-70/40 ,HR 61 O2 SAT -96%, VASOPRESSIN COMMENCED ORDERED, CONTINUE TO MONITOR
--- NOTE | 2020-12-06 12:45 | NUR ---
DR MALAVE HERE,SEEN PT,NOTED ALL PARAMETERS,WITH IKEES,CARRIED OUT
[2020-12-06] MEDS ORDERED: ALBUMIN HUMAN 25% 100 ML IV SCH (13:00)
--- NOTE | 2020-12-06 13:10 | NUR ---
DR HILL HERE,SEEN PT, NOTED ALL PARAMETERS,NO FURTHER ORDERS,CONTINUE TO MONITOR.
--- NOTE | 2020-12-06 13:45 | NUR ---
DR PEREZ INFORMED OF PT BP ON THE LOW SIDE, DR PEREZ SPOKEN WITH CANDY BY PHONE AND UPDATED HIMON THE VERY CRITICAL CONDITION OF THE BROTHER. dR KENNEDY AWARE OF THE LOW BP OF PT DESPITE THE MAX DOSE OF VASOPRESSIN AND LEVOPHED, NO NEED TO ADD ANOTHER PRESSOR PER SAME
[2020-12-06] MEDS ORDERED: AMIODARONE 450 MG in DEXTROSE 5% 250 ML IV PRN (14:10)
--- NOTE | 2020-12-06 16:54 | NUR ---
DR MAJOR HERE,SEEN PT,NOTED ALL PARAMETERS,SEEN EKG STRIPS, CONTINUE AMIODARONE DRIP TILL BAG CONSUMED AND CALL HIM.
--- NOTE | 2020-12-06 19:03 | NUR ---
ASSISTED WITH ADL,HOURLY ROUNDING DONE.ALL ORDERS REVIEWED AND CARRIED OUT. ENDORSED TO FIRE DISPATCHER
--- NOTE | 2020-12-06 20:00 | NUR ---
RECEIVED REPORT ON PATIENT, HE HAD A VERY EVENTFUL DAY. PATIENT IS ON MANY NEW MEDICATIONS TO ASSIST HIS BLOOD PRESSURE AND HEART RATE NO SIGNS OF DISTRESS OBSERVED. PATIENT IS SEDATED ON PROPOFOL, SAME CONTINUES TO ORDERED I WILL FOLLOW UP WITH PATIENTS CONDITION. AND DO THE BEST IN MY SCOPE TO MAKE HIM COMFORTABLE.
[2020-12-07] VITALS (25 sets, daily range): BP systolic 55–143; BP diastolic 32–83
--- NOTE | 2020-12-07 | NUR ---
NO CHANGE IN STATUS. PT CONTINUES TO HAVE EPISODES OF TACH WILL CONTINUE TO MONITOR PATIENTS STATUS. PATIENT HAS SOME PAUSES ON HIS EKG DURING HIS SLEEP PATTERN SAME ASYMPTOMATIC
--- NOTE | 2020-12-07 02:00 | NUR ---
PT CONTINUES TO HAVE SHORT PAUSES ON EKG STRIPS. DR. FREGOSO OFFICE CALLED DR RODRIGUEZ;;MARILU RESPONDED TO CALL AND ASKED TO STOP THE aMIODORONE. SAME DONE PT STILL CONTINUES TO HAVE TACHEYCARDIA AND PAUSES. ASYMPTOMATIC.
--- NOTE | 2020-12-07 04:00 | NUR ---
patient is resting well pm care given mouth care given same well tolerated.will continue to monitor patient. 's status tube feeding continues pt is afebrile,attached to ventilator. tolerates very well.
[2020-12-07] MEDS: MORPHINE SULFATE 50 MG in NACL 0.9% 45 ML IV PRN ×3 (05:19→23:11)
[2020-12-07 06:45] LABS: BASOPHILS # (AUTO) 0.1 K/uL (0.00-0.22); BASOPHILS % (AUTO) 0.6 % (0.0-2.0); EOSINOPHILS # (AUTO) 0.1 K/uL (0-0.4); HEMATOCRIT 33.4 % (36-52); LYMPHOCYTES # (AUTO) 0.5 K/uL (2.0-11.5); LYMPHOCYTES % (AUTO) 5.4 % (20.5-51.1); MEAN CORPUSCULAR HEMOGLOBIN 32 pg (27-31); MEAN CORPUSCULAR HGB CONC 33 g/dL (33-37); MEAN CORPUSCULAR VOLUME 96.7 fL (80-94); MONOCYTES # (AUTO) 0.3 K/uL (0.8-1.0); MONOCYTES % (AUTO) 2.9 % (1.7-9.3); NEUTROPHILS # (AUTO) 8.6 K/uL (1.8-7.7); NEUTROPHILS % (AUTO) 90.1 % (42.2-75.2); PLATELET COUNT (AUTO) 53 K/uL (140-450); RED BLOOD CELL COUNT(AUTO) 3.45 MIL/uL (4.20-6.10); RED CELL DISTRIBUTION WIDTH 16.8 % (11.6-13.7); WHITE BLOOD COUNT (AUTO) 9.6 K/uL (4.8-10.8)
[2020-12-07 06:58] LABS: ANION GAP 13.7 (8-16); CARBON DIOXIDE 27.1 mmol/L (21-32); POTASSIUM 4.8 mmol/L (3.5-5.1)
--- NOTE | 2020-12-07 07:20 | NUR ---
RECEIVED WINDOW-SIDE REPORT FROM MARINE EQUIPMENT ENGINEER NURSE FOR CONTINUITY OF CARE. PATIENT IS LYING ON BED COMFORTABLY WITH BOTH EYES CLOSED, PILLOWS USED TO OFFLOAD PRESSURE. RASS -3, DRY WEIGHT 83 KG. RESPIRATION EVEN, SHALLOW, AND UNLABORED ON ETT TO VENT, AC/PC FIO2 100%, RATE 22,, PEEP 14, SPO2 90% AT THIS TIME. IV ON GRAHAM PICC, CLEAN AND INTACT, DRESSING LAST CHANGED ON 12/05/2020, RUNNING VASOPRESSIN 0.04 UNIT/MIN. LEVOPHED 30 MCG/MIN, PROPOFOL 20 MCG/KG/MIN AND MORPHINE 5 MG/HR. SKIN WARM TO TOUCH, INTACT PER REPORT, LOW JONI SCORE. OGT IN PLACE, RUNNING GLUCERNA 1.2 AT 40 ML/HR AND WATER FLUSH 200 ML/Q4H, RESIDUAL RECEIVED > 250 ML, FEEDING HELD. MARION IN PLACE, DRAINING WITH GRAVITY. SAFETY MEASURES IN PLACE. BED IN LOW POSITION, HOB ELEVATED 35 DEGREE AND BED LOCKED.
--- NOTE | 2020-12-07 07:25 | NUR ---
REPORT GIVEN TO ONCOMING NURSE. PATIENT IS RESTING WELL.
[2020-12-07] MEDS: VASOPRESSIN 20 UNITS in NACL 0.9% 250 ML IV SCH ×2 (07:58→20:26)
[2020-12-07] MEDS: FAMOTIDINE 20 MG/2 ML VIAL IV SCH ×2 (09:11→20:12)
[2020-12-07] MEDS: ZINC SULF 220 MG CAP PO SCH (09:12)
--- NOTE | 2020-12-07 09:41 | NUR ---
OGT RESIDUAL RECEIVED 250 ML WHITE/YELLOWISH RESIDUAL, FLUSHED. ADMINISTERED SCHEDULE AM MEDS, HELD HEPARIN SUBQ DUE TO LOW PLT 54 FROM AM LAB, FLUSHED BEFORE AND AFTER MEDS. PROVIDED AM HYGIENE CARE, ORAL CARE, CHG BATH, AND MARION CARE. WITH ASSIST, REPOSITIONED PATIENT, OFFLOADED PRESSURE WITH PILLOWS, PATIENT TOLERATED FAIR, FLACC 0. RESPIRATION EVEN, UNLABORED AND SHALLOW ON ETT TO VENT, FIO2 100%, SPO2 92 AT THIS TIME. OGT FEEDING CONTINUE TO HOLD. SAFETY MEASURES IN PLACE.
[2020-12-07] MEDS: PROPOFOL 1000 MG/100 ML PREMIX 100 ML IV PRN ×2 (11:53→20:27)
--- NOTE | 2020-12-07 11:53 | NUR ---
STARTED A NEW BOTTLE OF PROPOFOL, CHANGED TUBING, CONTINUE RUNNING AT 20 MCG/KG/MIN. CHANGED ALL OTHER IV TUBINGS, AND LABELED.
[2020-12-07] MEDS: NOREPINEPHRINE 8 MG in DEXTROSE 5% 250 ML IV PRN ×2 (12:15→21:53)
--- NOTE | 2020-12-07 13:50 | NUR ---
RECEIVED CALL FROM PATIENT'S NAM, UPDATED HER WITH PATIENT'S CURRENT CONDITION, ANSWERED ALL HER QUESTIONS, NAM WAS AWARE.
--- NOTE | 2020-12-07 14:03 | NUR ---
DR. MEDINA MADE AWARE OF SODIUM 130, ADVISED TO INCREASE RATE OF NORMAL SALINE FROM 5ML/HR TO 50 ML/HR. REPEATED AND CONFIRMED WITH DOCTOR.
[2020-12-07] MEDS: NACL 0.9% 1,000 ML IV SCH (14:08)
--- NOTE | 2020-12-07 15:02 | NUR ---
DR APARICIO ROUNDING ON PATIENT.
--- NOTE | 2020-12-07 15:11 | NUR ---
RECEIVED VERBAL ORDER FOR ROCURONIUM 50 MG IVP Q6H, REPEATED AND CONFIRMED ORDER WITH DR APARICIO. WILL INPUT ORDER ACCORDINGLY.
--- NOTE | 2020-12-07 16:55 | NUR ---
WITH ASSIST, REPOSITIONED PATIENT, PILLOWS USED TO OFFLOADED PRESSURE, CHANGED ALL DIRTY LINENS. OGT RESIDUAL CHECK RECEIVED 190 ML WHITE RESIDUAL, STARTED OGT FEEDING AT 40 ML/HR AND WATER FLUSHED 300 ML/Q12H. WILL MONITOR RESIDUAL. PROVIDED ORAL CARE AND SUCTIONING, PATIENT TOLERATED FAIR, FLACC 0. RESPIRATION [place], UNLABORED, SHALLOW ON ETT TO VENT, AC/PC FIO1 100%, RATE 22, PEEP 14, SPO2 AT 95% AT THIS TIME. SAFETY MEASURES IN PLACE. HOB ELEVATED 35 DEGREE, BED IN LOW POSITION, AND BED LOCKED.
--- NOTE | 2020-12-07 17:21 | NUR ---
DR MAJOR IS ROUNDING ON PATIENT. CARDIAC CONDITION MADE AWARE. ZOLLE PADS ATTACHED TO PATIENT FOR STANDBY PER MD ORDER.
--- NOTE | 2020-12-07 17:37 | NUR ---
DR APARICIO ORDERED TO GIVE ROCURONIUM 50 MG IVP NOW, ADMINISTERED PER MD ORDER.
[2020-12-07] MEDS ORDERED: METOPROLOL 5 MG/5 ML VIAL ONE (17:40)
--- NOTE | 2020-12-07 17:47 | NUR ---
PATIENT IS SINUS TACHYCARDIAC AFTER RECEIVED ROCURONIUM, DR APARICIO MADE AWARE AT NURSING STATION. PER DR APARICIO, GIVE A ONCE TIME DOSE METOPROLOL 5 MG/ 5ML IVP, REPEATED AND CONFIRMED ORDER WITH DR APARICIO. WILL MONITOR VITAL SIGNS CLOSELY.
[2020-12-07] MEDS ORDERED: METOPROLOL 5 MG/5 ML VIAL IV ONE (17:50)
[2020-12-07] MEDS ORDERED: ROCURONIUM 50 MG/5 ML VIAL IV SCH (18:00)
[2020-12-07] MEDS ORDERED: ROCURONIUM 50 MG/5 ML VIAL IV ONE (18:20)
--- NOTE | 2020-12-07 19:19 | NUR ---
ENDORSED PATIENT TO APRON WORKER NURSE LILI FOR CONTINUITY OF CARE.
--- NOTE | 2020-12-07 20:00 | NUR ---
RECEIVED REPORT FROM DAY SHIFT RN. PT ETT TO VENT. A/C PRVC- FIO2 100%, TV-450 RATE-26, PEEP-14. RESPIRATION EVEN AND UNLABORED. LUNG SOUNDS DIMINISHED UPON AUSCULTATION. CHEST EXPANSION SYMMETRICAL. OGT TO FEEDING RUNNING GLUCERNA 1.2 @ 40MLS/HR WITH FWF 300ML Q12HR. ABDOMEN SOFT, FLAT, NON-TENDER. RIGHT UPPER ARM PICC LINE. ASYMPTOMATIC, PATENT AND INTACT. RASS -3. PT ON PROPOFOL @ 20 MCG/KG/HR, MORPHINE 5MG/HR, LEVOPHED @ 12 MCG/MIN, VASOPRESSIN 0.02 UNIT/MIN, NS @ 50ML/HR. SKIN WARM, DRY, PURPLE DISCOLORATION OBSERVED ON THE LEFT EAR AND RIGHT KNEE. MARION CATHETER IN PLACE DRAINING TO GRAVITY. HOB ELEVATED, BED LOW AND LOCKED, SAFETY PRECAUTIONS OBSERVED, ISOLATION PRECAUTION MAINTAINED. WILL CONTINUE TO MONITOR.
[2020-12-07] MEDS: ROCURONIUM IV PRN (20:51)
[2020-12-07] MEDS: NACL 0.9% IV PRN (20:51)
[2020-12-08] VITALS (35 sets, daily range): BP systolic 101–143; BP diastolic 50–70
--- NOTE | 2020-12-08 | NUR ---
TURNED AND REPOSITIONED PT. PRESSURE AREAS OFF LOADED. WILL CONTINUE TO MONITOR.
[2020-12-08] MEDS: NACL 0.9% IV PRN ×5 (00:24→23:47)
[2020-12-08] MEDS: ROCURONIUM IV PRN ×5 (00:24→23:47)
--- NOTE | 2020-12-08 01:31 | NUR ---
patients fio2 decreased to 80%. sats 99%
--- NOTE | 2020-12-08 04:00 | NUR ---
MORNING CARE PROVIDED. PT CONDITION REMAINS UNCHANGED. WILL CONTINUE TO MONITOR.
--- NOTE | 2020-12-08 04:23 | NUR ---
DECREASED FIO2 TO 70% SATS 95%
[2020-12-08 06:04] LABS: ANION GAP 11.1 (8-16); CREATININE 2.1 mg/dL (0.6-1.3); POTASSIUM 5.1 mmol/L (3.5-5.1)
[2020-12-08 06:12] LABS: MAGNESIUM 2.7 mg/dL (1.8-2.4); PHOSPHORUS 5.9 mg/dL (2.5-4.9)
[2020-12-08 06:39] LABS: BASOPHILS % (AUTO) 0.6 % (0.0-2.0); HEMOGLOBIN 10.7 g/dL (12.0-18.0); LYMPHOCYTES # (AUTO) 0.3 K/uL (2.0-11.5); LYMPHOCYTES % (AUTO) 3.8 % (20.5-51.1); MEAN CORPUSCULAR HEMOGLOBIN 32 pg (27-31); MEAN CORPUSCULAR HGB CONC 33 g/dL (33-37); MEAN CORPUSCULAR VOLUME 95.1 fL (80-94); MONOCYTES # (AUTO) 0.3 K/uL (0.8-1.0); MONOCYTES % (AUTO) 4.8 % (1.7-9.3); NEUTROPHILS # (AUTO) 6.3 K/uL (1.8-7.7); NEUTROPHILS % (AUTO) 90.8 % (42.2-75.2); PLATELET COUNT (AUTO) 59 K/uL (140-450); RED BLOOD CELL COUNT(AUTO) 3.36 MIL/uL (4.20-6.10); RED CELL DISTRIBUTION WIDTH 16.9 % (11.6-13.7); WHITE BLOOD COUNT (AUTO) 6.9 K/uL (4.8-10.8)
--- NOTE | 2020-12-08 07:10 | NUR ---
RECEIVED REPORT FROM CANAL STRUCTURE OPERATOR NURSE MORIAH FOR CONTINUITY OF CARE. PATIENT IS LYING ON BED COMFORTABLY WITH BOTH EYES CLOSED, PILLOWS USED TO OFFLOAD PRESSURE. RASS -3, DRY WEIGHT 83 KG. RESPIRATION EVEN, SHALLOW, AND UNLABORED ON ETT TO VENT, AC/PRVC FIO2 70%, RATE 26, PEEP 14, SPO2 93% AT THIS TIME. LUNGS SOUND COARSE UPON AUSCULTATION. IV ON GRAHAM PICC, CLEAN AND INTACT, DRESSING LAST CHANGED ON 12/05/2020, RUNNING LEVOPHED 6 MCG/MIN, PROPOFOL 10 MCG/KG/MIN, MORPHINE 5 MG/HR, ROCURONIUM 6 MCG/KG/MIN, AND NS 50 ML/HR. SKIN WARM TO TOUCH, INTACT, LOW JONI SCORE. ABDOMEN FLAT AND SOFT. OGT IN PLACE, RUNNING GLUCERNA 1.2 AT 40 ML/HR AND WATER FLUSH 200 ML/Q4H, RESIDUAL RECEIVED 125 ML, WATER FLUSH 300 ML/Q12H. MARION IN PLACE, DRAINING WITH GRAVITY, DARK SOUTH URINE IN BAG NOTED. ZOLLE PADS ATTACHED AND ZOLLE BY BEDSIDE. ENHANCED DROPLET PRECAUTION, FALL RISK PRECAUTION, ASPIRATION PRECAUTION IN PLACE. SAFETY MEASURES IN PLACE. BED IN LOW POSITION, HOB ELEVATED 35 DEGREE AND BED LOCKED.
--- NOTE | 2020-12-08 07:22 | NUR ---
ENDORSED PT TO DAY SHIFT RN FOR CONTINUITY OF CARE.
[2020-12-08] MEDS: ASCORBIC ACID 500 MG TAB PO SCH (08:51)
[2020-12-08] MEDS: FAMOTIDINE 20 MG/2 ML VIAL IV SCH ×2 (08:51→20:06)
[2020-12-08] MEDS: ZINC SULF 220 MG CAP PO SCH (08:51)
--- NOTE | 2020-12-08 09:08 | NUR ---
CHECKED NGT RESIDUAL RECEIVED < 95 ML WHITE RESIDUAL, FLUSHED. ADMINISTERED SCHEDULED AM MEDS, FLUSHED BEFORE AND AFTER MEDS. PROVIDED HYGIENE CARE, ORAL CARE, CHG BATH, MARION CARE. WITH ASSIST, REPOSITIONED PATIENT, OFFLOADED PRESSURE WITH PILLOWS, PATIENT TOLERATED FAIR, FLACC 0. RESPIRATION EVEN AND UNLABORED ON ETT TO VENT AC/PRVC FIO2 70%, SPO2 93%. NO SIGNS OF ACUTE DISTRESS NOTED. SAFETY MEASURES IN PLACE. HOB ELEVATED 35 DEGREE, BED IN LOW POSITION, AND BED LOCKED.
[2020-12-08] MEDS: MORPHINE SULFATE 50 MG in NACL 0.9% 45 ML IV PRN ×2 (09:59→20:00)
[2020-12-08] MEDS: NACL 0.9% 1,000 ML IV SCH (10:05)
--- NOTE | 2020-12-08 11:31 | NUR ---
CHECKED OGT RESIDUAL RECEIVED 85 ML WHITE RESIDUAL. STARTED A NEW BOTTLE GLUCERNA 1.2, 40 ML/HR AND WATER FLUSH 100 ML/Q4H PER FNS RECOMMENDED. CHANGED ALL TUBING.
--- NOTE | 2020-12-08 11:45 | NUR ---
DR KENNEDY IS ROUNDING ON PATIENT.
--- NOTE | 2020-12-08 12:20 | NUR ---
RECEIVED CALL FROM PATIENT'S SISTER NAM, UPDATE HER WITH PATIENT'S CURRENT CONDITION, ANSWERED ALL HER QUESTIONS, NAM WAS AWARE.
[2020-12-08] MEDS: PROPOFOL 1000 MG/100 ML PREMIX 100 ML IV PRN (14:07)
--- NOTE | 2020-12-08 14:40 | NUR ---
DR APARICIO IS ROUNDING ON PATIENT, ORDERED TO INCREASE PROPOFOL TO 20 MCG.
--- NOTE | 2020-12-08 16:22 | NUR ---
12/08/20 FOLLOW UP COMPLETED PLEASE REFER TO NUTRITION ASSESSMENT UNDER CARE ACTIVITY FOR ESTIMATED NUTRITIONAL NEEDS. 1. RECOMMEND GLUCERNA 1.2 @ 40 ML/HR X 24 HOURS WITH PROSOURCE BID ; FLUSH 100ML Q4H -THIS PROVIDES 960 ML OF VOLUME, 1272 KCAL, AND 88 GM OF PROTEIN, MEETING >90% OF ESTIMATED KCAL AND PROTEIN NEEDS. 2. F/U 2-3 DAYS; HIGH RISK SHAMA VALENTIN, RD
--- NOTE | 2020-12-08 19:25 | NUR ---
RECEIVED PATIENT FROM AM SHIFT. PATIENT WAS SEEN AND ASSESSED. FOUND PT IN SUPINE POSITION. PATIENT IS INTUBATED WITH ETT SIZE 7.5 AND SECURED WITH BITTING BLOCK ANCHOR-FAST AT 23cm. PATIENT IS ON VENT SETTINGS: AC/PRVC RR 26, VT 350, PEEP 14, FiO2 70% WITH SPO2 OF 92%. AMBU BAG AT BEDSIDE. VENT IS PLUGGED IN RED OUTLET. ALARMS SET AND AUDIBLE TO ENVIRONMENT. SUCTIONED SCANT AMOUNT OF CLEAR WHITE SECRETIONS FROM ETT. AIRWAY IS PATENT. AUSCULTATION REVEALS BILATERAL RALES BREATH SOUNDS ON THE BASES AND CLEAR/ DIMINISHED ON THE UPPER LOBES. PATIENT IS IN NO APPARENT RESPIRATORY DISTRESS AT THIS TIME. WILL CONTINUE TO MONITOR PATIENT.
--- NOTE | 2020-12-08 19:30 | NUR ---
RECEIVED REPORT FROM AM SHIFT RN. PT ETT TO VENT. SEDATED, RASS -3. A/C PRVC MODE FIO2 70%, TV 300 RATE 26, PEEP 14. OGT TO FEEDING RUNNING GLUCERNA 1.2 @ 40MLS/HR WITH FWF 100ML Q4HR. IV SITE GRAHAM PICC LINE ASYMPTOMATIC, PATENT AND INTACT, INFUSING PROPOFOL 20 MCG/KG/HR, MORPHINE 5MG/HR, LEVOPHED 2 MCG/MIN, NS 50ML/HR. SKIN WARM, DRY, PURPLE DISCOLORATION OBSERVED ON THE LEFT EAR AND RIGHT KNEE. MARION CATHETER IN PLACE. HOB ELEVATED, BED LOW AND LOCKED, SAFETY PRECAUTIONS IN PLACE. WILL CONTINUE TO MONITOR. Addendum: 12/08/20 at 2215 by Bruce Peres RN INFUSING VECURONIUM 6MCG/KG/MIN. TOF 10 NOTED. DRY WEIGHT 83 KG. Addendum: 12/08/20 at 2320 by Bruce Peres RN TOF 3 @10 NOTED.
--- NOTE | 2020-12-08 20:00 | NUR ---
TUBE FEEDING RESIDUALS 300ML. HELD FEEDING AT THIS TIME.
--- NOTE | 2020-12-08 22:10 | NUR ---
PT SEDATED, RESPIRATIONS EVEN AND UNLABORED. CHEST RISE IS SYMMETRICAL, SAFETY PRECAUTIONS IN PLACE. WILL CONTINUE TO MONITOR.
[2020-12-09] VITALS (33 sets, daily range): BP systolic 107–144; BP diastolic 58–77
--- NOTE | 2020-12-09 00:30 | NUR ---
PT SEDATED, RESPIRATIONS EVEN AND UNLABORED. CHEST RISE IS SYMMETRICAL. SAFETY PRECAUTIONS IN PLACE. WILL CONTINUE TO MONITOR.
--- NOTE | 2020-12-09 00:53 | NUR ---
SPO2 98%. FiO2 TITRATED TO 65%. SPO2 96%. PT TOLERATING WELL AT THIS TIME. RN NOTIFIED. WILL CONTINUE TO MONITOR.
--- NOTE | 2020-12-09 01:20 | NUR ---
RECEIVED CALL FROM PT'S FAMILY, CANDY. ALL QUESTIONS AND CONCERNS ANSWERED AT THIS TIME.
[2020-12-09] MEDS: PROPOFOL 1000 MG/100 ML PREMIX 100 ML IV PRN ×2 (01:47→12:24)
[2020-12-09] MEDS: NACL 0.9% 1,000 ML IV SCH (01:48)
--- NOTE | 2020-12-09 03:19 | NUR ---
SPO2 98%. FiO2 TITRATED TO 60%. PT TOLERATING WELL AT THIS TIME. RN NOTIFIED. WILL CONTINUE TO MONITOR.
--- NOTE | 2020-12-09 05:00 | NUR ---
PT CLEANED, REPOSITIONED, ORAL CARE AND MAROIN CARE PROVIDED. SAFETY PRECAUTIONS IN PLACE. WILL CONTINUE TO MONITOR.
[2020-12-09] MEDS: NACL 0.9% IV PRN ×3 (05:13→21:23)
[2020-12-09] MEDS: ROCURONIUM IV PRN ×3 (05:13→21:23)
--- NOTE | 2020-12-09 06:09 | NUR ---
PT IS STILL ON VENT SUPPORT. PT TOLERATING WELL. ADEQUATE CHEST RISE AND FALL. ETT SECURED WITH BITTING BLOCK ANCHOR-FAST. WILL CONTINUE TO MONITOR PT.
[2020-12-09] MEDS: MORPHINE SULFATE 50 MG in NACL 0.9% 45 ML IV PRN ×2 (06:35→21:33)
--- NOTE | 2020-12-09 07:23 | NUR ---
REPORT GIVEN TO SAYRA QUINTANILLA FOR CONTINUITY OF CARE
--- NOTE | 2020-12-09 07:25 | NUR ---
RECEIVED REPORT FROM DELIVERY STOCK CLERK NURSE SEVERO FOR CONTINUITY OF CARE. PATIENT IS LYING ON BED COMFORTABLY WITH BOTH EYES CLOSED, PILLOWS USED TO OFFLOAD PRESSURE. RASS -3, DRY WEIGHT 83 KG. RESPIRATION EVEN, SHALLOW, AND UNLABORED ON ETT TO VENT, AC/PRVC FIO2 60%, RATE 26, PEEP 14, SPO2 92% AT THIS TIME. LUNGS SOUND COARSE UPON AUSCULTATION. IV ON GRAAHM PICC, CLEAN AND INTACT, DRESSING LAST CHANGED ON 12/05/2020, RUNNING LEVOPHED 2 MCG/MIN, PROPOFOL 20 MCG/KG/MIN, MORPHINE 5 MG/HR, ROCURONIUM 6 MCG/KG/MIN, AND NS 50 ML/HR. SKIN WARM TO TOUCH, INTACT, LOW JONI SCORE. ABDOMEN FLAT AND SOFT. OGT IN PLACE, FEEDING HELD DUE TO HIGH RESIDUAL. MARION IN PLACE, DRAINING WITH GRAVITY, DARK SOUTH URINE IN BAG NOTED. ZOLL PADS ATTACHED AND ZOLL BY BEDSIDE. ENHANCED DROPLET PRECAUTION, FALL RISK PRECAUTION, ASPIRATION PRECAUTION IN PLACE. SAFETY MEASURES IN PLACE. BED IN LOW POSITION, HOB ELEVATED 35 DEGREE AND BED LOCKED.
--- NOTE | 2020-12-09 07:45 | NUR ---
PEEP DECREASED TO 12, RN NOTIFIED.
--- NOTE | 2020-12-09 08:10 | NUR ---
DR BIRMINGHAM IS ROUNDING ON PATIENT, UPDATED MD WITH PATIENT'S CURRENT CONDITION.
--- NOTE | 2020-12-09 08:25 | NUR ---
DR BRITO IS ROUNDING ON PATIENT, UPDATED DR BRITO WITH PATIENT'S CURRENT CONDITION. DR BRITO ORDER TO DC NS IVF, REPEATED AND CONFIRMED ORDER, IVF NS STOP AT THIS TIME.
[2020-12-09 08:48] LABS: HEMATOCRIT 30.9 % (36-52); HEMOGLOBIN 10.1 g/dL (12.0-18.0); MEAN CORPUSCULAR HEMOGLOBIN 32 pg (27-31); MEAN CORPUSCULAR HGB CONC 33 g/dL (33-37); MEAN CORPUSCULAR VOLUME 95.9 fL (80-94); PLATELET COUNT (AUTO) 54 K/uL (140-450); RED BLOOD CELL COUNT(AUTO) 3.22 MIL/uL (4.20-6.10); RED CELL DISTRIBUTION WIDTH 17.4 % (11.6-13.7); WHITE BLOOD COUNT (AUTO) 5.4 K/uL (4.8-10.8)
--- NOTE | 2020-12-09 08:53 | NUR ---
PT. WITH LOW JONI SCALE AT HIGH RISK, CONTINUE TO FOLLOW PRESSURE INJURY PREVENTION INTERVENTIONS. -TURN AND REPOSITION PATIENT Q 2H -ASSESS AND MONITOR SKIN CONDITION DURING POSITION CHANGE -OFFLOAD BILATERAL HEELS BY PLACING PILLOWS UNDER CALVES AT ALL TIMES, UNLESS OTHERWISE CONTRAINDICATED -PRESSURE REDISTRIBUTION BY PLACING PILLOWS AND OFFLOADING SACRALCOCCYX -KEEP SKIN CLEAN AND DRY AT ALL TIMES.
[2020-12-09 09:38] LABS: EOSINOPHILS % (MANUAL) 1 % (0-4); LYMPHOCYTES % (MANUAL) 4 % (20-46); MONOCYTES % (MANUAL) 8 % (5-12)
[2020-12-09] MEDS: ZINC SULF 220 MG CAP PO SCH (09:39)
[2020-12-09] MEDS: FAMOTIDINE 20 MG/2 ML VIAL IV SCH ×2 (09:39→21:46)
[2020-12-09] MEDS: ASCORBIC ACID 500 MG TAB PO SCH (09:39)
--- NOTE | 2020-12-09 09:50 | NUR ---
CHECKED OGT RESIDUAL RECEIVED 325 ML YELLOW RESIDUAL, FLUSHED. ADMINISTERED SCHEDULE AM MEDS VIA OGT, HEPARIN SUBQ HELD DUE TO LOW PLT FROM AM LAB, FLUSHED WITH 15 ML OF WATER BEFORE AND AFTER MEDS. OGT FEEDING HELD. PROVIDED HYGIENE CARE, ORAL CARE, CHG BATH, AND MARION CARE. WITH ASSIST, REPOSITIONED PATIENT, PILLOWS USED TO OFFLOAD PRESSURE, HEEL PROTECTORS ON BILATERALLY. PATIENT TOLERATED FAIR, FLACC 0. RESPIRATION EVEN, UNLABORED, SHALLOW ON ETT TO VENT, AC/PRVC FIO2 55%, TIDAL VOLUME 350 ML, RATE 26, PEEP 12, SPO2 94%. SAFETY MEASURES IN PLACE. BED IN LOW POSITION, HOB ELEVATED 35 DEGREE, AND BED LOCKED.
[2020-12-09 10:15] LABS: ANION GAP 10.6 (8-16); CARBON DIOXIDE 27.2 mmol/L (21-32); CREATININE 2.3 mg/dL (0.6-1.3); MAGNESIUM 2.6 mg/dL (1.8-2.4); PHOSPHORUS 5.8 mg/dL (2.5-4.9); POTASSIUM 4.8 mmol/L (3.5-5.1)
--- NOTE | 2020-12-09 11:05 | NUR ---
RECEIVED CRITICAL LAB FOR BUN 72 CR 2.3, DR DARYL BLACKWOOD, AWAITING FOR MD TO CALL BACK.
--- NOTE | 2020-12-09 11:09 | NUR ---
RECEIVED CALL BACK FROM DR BRITO, CRITICAL LAB MADE AWARE. RECEIVED TORB ORDER FOR BOLUS NS 500 ML AND RECHECK LAB TOMORROW AM. REPEATED AND CONFIRMED ORDER WITH MD, WILL INPUT ACCORDINGLY.
[2020-12-09] MEDS ORDERED: NACL 0.9% 500 ML IV SCH (11:10)
--- NOTE | 2020-12-09 11:15 | NUR ---
NS 500 ML BOLUS STARTED.
--- NOTE | 2020-12-09 12:31 | NUR ---
DR APARICIO IS ROUNDING ON PATIENT, UPDATED HIM WITH PATIENT'S CURRENT CONDITION, DR APARICIO WAS AWARE. RECEIVED VERBAL ORDERS FOR SENNA 8.6 MG BID, COLACE 100 MG BID, MIRALAX 17 GM BID VIA OGT FOR CONSTIPATION, REPEATED AND CONFIRMED ORDER WITH MD.
--- NOTE | 2020-12-09 13:04 | NUR ---
RECEIVED CALL FROM PATIENT'S SISTER NAM, UPDATE HER WITH PATIENT'S CURRENT CONDITION, ANSWERED ALL HER QUESTIONS, NAM WAS AWARE.
--- NOTE | 2020-12-09 13:45 | NUR ---
DR MARKUS MUNIZ, REPORTED ABG RESULTS. INCREASE FIO2 TO 60%, NO OTHER CHANGES.
--- NOTE | 2020-12-09 15:42 | NUR ---
WITH ASSIST, PROVIDED HYGIENE CARE, CHANGED ALL LINEN AND PUT ON NEW GOWN. REPOSITIONED PATIENT, PILLOWS USED TO OFFLOAD PRESSURE FROM BONY AREAS AND EXTREMITIES. HEEL PROTECTORS IN PLACE. PROVIDED ORAL CARE AND SUCTIONING. PATIENT TOLERATED FAIR, FLACC 0, RESPIRATION EVEN AND UNLABORED ON ETT TO VENT AC/PRVC FIO2 60%, RATE 26, PEEP 12, SPO2 AT 96%. BP 18/75, PULSE 75. OGT RESIDUAL CHECKED, RECEIVED 180 ML YELLOW RESIDUAL,STARTED SLOW FEEDING AT 10 ML/HR. SAFETY MEASURES IN PLACE. HOB ELEVATED 35 DEGREE, BED IN LOW POSITION AND BED LOCKED.
[2020-12-09] MEDS: NOREPINEPHRINE 8 MG in DEXTROSE 5% 250 ML IV PRN (16:00)
--- NOTE | 2020-12-09 19:28 | NUR ---
RECEIVED PATIENT FROM AM SHIFT. PATIENT WAS SEEN AND ASSESSED. FOUND PT IN SUPINE POSITION. PATIENT IS INTUBATED WITH ETT SIZE 7.5 AND SECURED WITH BITTING BLOCK ANCHOR-FAST AT 23cm. PATIENT IS ON VENT SETTINGS: AC/PRVC RR 26, VT 350, PEEP 12, FiO2 60% WITH SPO2 OF 94%. AMBU BAG AT BEDSIDE. VENT IS PLUGGED IN RED OUTLET. ALARMS SET AND AUDIBLE TO ENVIRONMENT. SUCTIONED SCANT AMOUNT OF ETIENNE THICK SECRETIONS FROM ETT. AIRWAY IS PATENT. AUSCULTATION REVEALS BILATERAL RALES BREATH SOUNDS ON THE BASES AND CLEAR/ DIMINISHED ON THE UPPER LOBES. PATIENT IS IN NO APPARENT RESPIRATORY DISTRESS AT THIS TIME. WILL CONTINUE TO MONITOR PATIENT.
--- NOTE | 2020-12-09 19:38 | NUR ---
ENDORSED PATIENT TO HVAC RESIDENTIAL SERVICE TECHNICIAN NURSE CAREY FOR CONTINUITY OF CARE. SAFETY MEASURES IN PLACE.
[2020-12-09] MEDS: SENNA 8.6 MG TAB NG SCH (21:46)
[2020-12-09] MEDS: POLYETHYLENE GLYCOL 17 GM/PKT NG SCH (21:47)
[2020-12-10] VITALS (36 sets, daily range): BP systolic 68–167; BP diastolic 40–93
[2020-12-10] MEDS: ROCURONIUM IV PRN ×2 (01:55→06:22)
[2020-12-10] MEDS: NACL 0.9% IV PRN ×2 (01:55→06:22)
--- NOTE | 2020-12-10 05:02 | NUR ---
PT DESATURATING. FiO2 TITRATED TO 70%. SPO2 92%. PT TOLERATING WELL AT THIS TIME. RN NOTIFIED. WILL CONTINUE TO MONITOR.
[2020-12-10 07:00] LABS: ALBUMIN 1.7 g/dL (3.4-5.0); ANION GAP 12.7 (8-16); CREATININE 2.4 mg/dL (0.6-1.3); MAGNESIUM 2.7 mg/dL (1.8-2.4); PHOSPHORUS 5.2 mg/dL (2.5-4.9); POTASSIUM 4.7 mmol/L (3.5-5.1)
--- NOTE | 2020-12-10 07:38 | NUR ---
RECEIVED REPORT FROM BOOM CAT OPERATOR NURSE CAREY FOR CONTINUITY OF CARE. PATIENT IS LYING ON BED COMFORTABLY WITH BOTH EYES CLOSED, PILLOWS USED TO OFFLOAD PRESSURE, PURPLE HEEL PROTECTORS IN PLACE. RASS -3, DRY WEIGHT 83 KG. RESPIRATION EVEN, SHALLOW, AND UNLABORED ON ETT TO VENT, AC/PRVC FIO2 70%, RATE 26, PEEP 12, SPO2 93% AT THIS TIME. LUNGS SOUND COARSE UPON AUSCULTATION. IV ON GRAHAM PICC, CLEAN AND INTACT, RUNNING PROPOFOL 5 MCG/KG/MIN, MORPHINE 3 MG/HR, ROCURONIUM 6 MCG/KG/MIN, AND NS 5 ML/HR. SKIN WARM TO TOUCH, INTACT, PURPLE DISCOLORATION ON R KNEE, NOTED, LOW JONI SCORE. OGT IN PLACE, FEEDING 10 ML/HR GLUCERNA 1.2. MARION IN PLACE, DRAINING WITH GRAVITY, DARK SOUTH URINE IN BAG NOTED. ZOLL PADS ATTACHED AND ZOLL BY BEDSIDE. ENHANCED DROPLET PRECAUTION, FALL RISK PRECAUTION, ASPIRATION PRECAUTION IN PLACE. SAFETY MEASURES IN PLACE. BED IN LOW POSITION, HOB ELEVATED 35 DEGREE AND BED LOCKED.
[2020-12-10 07:55] LABS: BASOPHILS % (AUTO) 0.3 % (0.0-2.0); EOSINOPHILS % (AUTO) 0.2 % (0.0-4.0); HEMATOCRIT 43.6 % (36-52); LYMPHOCYTES # (AUTO) 0.6 K/uL (2.0-11.5); LYMPHOCYTES % (AUTO) 5.1 % (20.5-51.1); MEAN CORPUSCULAR HEMOGLOBIN 31 pg (27-31); MEAN CORPUSCULAR HGB CONC 32 g/dL (33-37); MEAN CORPUSCULAR VOLUME 96.3 fL (80-94); MONOCYTES # (AUTO) 0.9 K/uL (0.8-1.0); MONOCYTES % (AUTO) 7.8 % (1.7-9.3); NEUTROPHILS # (AUTO) 9.4 K/uL (1.8-7.7); NEUTROPHILS % (AUTO) 86.6 % (42.2-75.2); PLATELET COUNT (AUTO) 63 K/uL (140-450); RED BLOOD CELL COUNT(AUTO) 4.52 MIL/uL (4.20-6.10); RED CELL DISTRIBUTION WIDTH 17.5 % (11.6-13.7); WHITE BLOOD COUNT (AUTO) 10.9 K/uL (4.8-10.8)
--- NOTE | 2020-12-10 08:22 | NUR ---
DR BIRMINGHAM IS ROUNDING ON PATIENT, UPDATED WITH CURRENT CONDITION. VERBAL ORDERS FOR US KIDNEYS, LIVER, ABDOMEN COMPLETE. WILL INPUT ORDERS ACCORDINGLY.
[2020-12-10 09:21] LABS: HEMOGLOBIN 13.9 g/dL (12.0-18.0)
[2020-12-10] MEDS: DOCUSATE 100 MG/10 ML UDC GT SCH (09:34)
[2020-12-10] MEDS: POLYETHYLENE GLYCOL 17 GM/PKT NG SCH ×2 (09:35→20:58)
[2020-12-10] MEDS: SENNA 8.6 MG TAB NG SCH ×2 (09:35→20:58)
[2020-12-10] MEDS: FAMOTIDINE 20 MG/2 ML VIAL IV SCH ×2 (09:35→20:57)
[2020-12-10] MEDS: ASCORBIC ACID 500 MG TAB PO SCH (09:35)
[2020-12-10] MEDS: ZINC SULF 220 MG CAP PO SCH (09:35)
--- NOTE | 2020-12-10 09:59 | NUR ---
OGT RESIDUAL RECEIVED 400 ML YELLOWISH WHITE RESIDUAL, FEEDING HELD. ADMINISTERED SCHEDULED AM MEDS, HELD HEPARIN SUBQ KYRA TO LOW PLT FROM AM LAB, FLUSHED BEFORE AND AFTER MEDS. PROVIDED AM HYGIENE CARE, ORAL CARE, CHG BATH, MARION CARE. WITH ASSIST, REPOSITIONED PATIENT, PILLOWS USED TO OFFLOAD PRESSURE, HEEL PROTECTORS APPLIED. PATIENT TOLERATED FAIR, FLACC 0. RESPIRATION EVEN, UNLABORED ON ETT TO VENT AV/PRVC FIO2 70%, RATE 26, PEEP 12, SPO2 90% AT THIS TIME. INSTALLER INTERIOR ASSEMBLIES, PULSE MONITOR, ZOLL PADS ATTACHED. HOB ELEVATED 35 DEGREE, BED IN LOW POSITION, AND BED LOCKED.
--- NOTE | 2020-12-10 10:06 | NUR ---
SUBSTITUTE NURSE IS AT BEDSIDE.
--- NOTE | 2020-12-10 10:42 | NUR ---
DR APARICIO IS ROUNDING ON PATIENT. RECEIVED VERBAL DULCOLAX 10 MG SUPPOSITORY DAILY FOR CONSTIPATION, REPEATED AND CONFIRMED ORDER, WILL INPUT ACCORDINGLY.
--- NOTE | 2020-12-10 11:17 | NUR ---
DR APARICIO ORDERS TO HOLD NIMISHA DRIP TO SEE HOW PATIENT IS TOLERATING FOR NOW.
[2020-12-10] MEDS: PROPOFOL 1000 MG/100 ML PREMIX 100 ML IV PRN (11:20)
--- NOTE | 2020-12-10 12:24 | NUR ---
RECEIVED CALL FROM PATIENT'S SISTER NAM, UPDATE HER WITH PATIENT'S CURRENT CONDITION, ANSWERED ALL HER QUESTIONS, NAM WAS AWARE.
--- NOTE | 2020-12-10 13:50 | NUR ---
DR MAJOR IS ROUNDING ON PATIENT.
[2020-12-10] MEDS: MORPHINE SULFATE 50 MG in NACL 0.9% 45 ML IV PRN (14:49)
--- NOTE | 2020-12-10 15:50 | NUR ---
DR HU IS ROUNDING ON PATIENT AND WAS AWARE OF BUN AND CR LAB FROM AM LAB. NO DIALYSIS AT THIS TIME. HE HAS INPUT ORDERS.
[2020-12-10] MEDS ORDERED: ALBUMIN HUMAN 25% 100 ML IV SCH (16:00)
[2020-12-10] MEDS ORDERED: BUMETANIDE 1 MG/4 ML VIAL IV SCH (16:30)
--- NOTE | 2020-12-10 16:39 | NUR ---
ADMINISTERED SCHEDULED MEDS PER DR HU ORDER. SVT 150 BPM NOTED, 12 LEAD EKG ORDERED.
--- NOTE | 2020-12-10 19:02 | NUR ---
RECEIVED PATIENT FROM AM SHIFT. PATIENT WAS SEEN AND ASSESSED. FOUND PT IN SUPINE POSITION. PATIENT IS INTUBATED WITH ETT SIZE 7.5 AND SECURED WITH BITTING BLOCK ANCHOR-FAST AT 23cm. PATIENT IS ON VENT SETTINGS: AC/PRVC RR 26, VT 350, PEEP 12, FiO2 70% WITH SPO2 OF 90%.NOTICED ADEQUATE CHEST RISE AND FALL. AMBU BAG AT BEDSIDE. VENT IS PLUGGED IN RED OUTLET. ALARMS SET AND AUDIBLE TO ENVIRONMENT. SUCTIONED MODERATE AMOUNT OF WHITE YELLOW THICK SECRETIONS FROM ETT. ORAL CARE DONE. SUCTIONED CLEAR WHITE THIN SECRETIONS ORALLY. AIRWAY IS PATENT. AUSCULTATION REVEALS BILATERAL RALES BREATH SOUNDS ON THE BASES AND CLEAR/ DIMINISHED ON THE UPPER LOBES. PATIENT IS IN NO APPARENT RESPIRATORY DISTRESS AT THIS TIME. WILL CONTINUE TO MONITOR PATIENT.
--- NOTE | 2020-12-10 19:45 | NUR ---
RECEIVED PT FROM AM NURSE. PT ON ETT TO VENT AC/PRVC 26 FIO2 70%, RATE 26, PEEP 12, SPO2 88-90% AT THIS TIME. BILATERAL LUNGS SOUND DIMINISH UPON AUSCULTATION. IV ON GRAHAM PICC, PERSONAL CARE WORKER SHOWS THE EPISODE OF TACHY. PER AM SHIFT PT SOMETIMES TACHY AND SOME TIMES GIFTY.PICC LINE TO GRAHAM,DOUBLE LUMENS. RUNNING PROPOFOL 10 MCG/KG/MIN, MORPHINE 3 MG/HR AND NS 5 ML/HR. OGT INPLACE, 10 CC RESIDUAL NOTED STARTING THE FEEDING GLUCERNA 1.2 WITH 20 CC/HR TO REACH GOAL OF 40 CC/HR. SKIN WARM TO TOUCH. INTACT, PURPLE DISCOLORATION ON RIGHT KNEE. MARION IN PLACE, DRAINING WITH GRAVITY,WITH CLOUDY URINE NOTED ON THE BSD BAG. KEPT PT CLEAN AND DRY.
--- NOTE | 2020-12-10 21:20 | NUR ---
NIGHT MEDS GIVEN. HEPARIN HELD D/T PLATELET LOW 63
[2020-12-11] VITALS (29 sets, daily range): BP systolic 102–167; BP diastolic 53–80
--- NOTE | 2020-12-11 01:01 | NUR ---
PT CONT ON SEDATION NO DISTRESS. T 98.5.
--- NOTE | 2020-12-11 03:20 | NUR ---
CANDY BROTHER CALLED. UP DATE PT STATUS TO BROTHER . HE ALSO PUT ON THE SPEAKER AND TALK TO PT. SIKHISM MUSIC PLAYED BROTHER REQUEST.PT STILL UNDER SEDATION RASS -3.
--- NOTE | 2020-12-11 05:40 | NUR ---
AM CARE DONE .PT RADHA WELL. KEPT PT CLEAN AND DRY. LABS DRAWN.
[2020-12-11 05:41] LABS: BASOPHILS # (AUTO) 0.1 K/uL (0.00-0.22); BASOPHILS % (AUTO) 0.8 % (0.0-2.0); EOSINOPHILS # (AUTO) 0.1 K/uL (0-0.4); EOSINOPHILS % (AUTO) 0.8 % (0.0-4.0); HEMATOCRIT 34.4 % (36-52); HEMOGLOBIN 11.3 g/dL (12.0-18.0); LYMPHOCYTES # (AUTO) 0.3 K/uL (2.0-11.5); LYMPHOCYTES % (AUTO) 3.5 % (20.5-51.1); MEAN CORPUSCULAR HEMOGLOBIN 31 pg (27-31); MEAN CORPUSCULAR HGB CONC 33 g/dL (33-37); MEAN CORPUSCULAR VOLUME 95.4 fL (80-94); MONOCYTES # (AUTO) 0.5 K/uL (0.8-1.0); MONOCYTES % (AUTO) 5.2 % (1.7-9.3); NEUTROPHILS # (AUTO) 8.3 K/uL (1.8-7.7); NEUTROPHILS % (AUTO) 89.7 % (42.2-75.2); PLATELET COUNT (AUTO) 75 K/uL (140-450); RED CELL DISTRIBUTION WIDTH 17.5 % (11.6-13.7); WHITE BLOOD COUNT (AUTO) 9.2 K/uL (4.8-10.8)
[2020-12-11] MEDS: PROPOFOL 1000 MG/100 ML PREMIX 100 ML IV PRN (06:01)
--- NOTE | 2020-12-11 07:00 | NUR ---
RECEIVED REPORT NIGHT RN NATALIE. PROFOLOL AND LEVOPHED INFUSING. MORPHINE IV OFF. PATIENT IS JAUNDICE. SEDATED AND INTUBATED. EYES CLOSED. NON LABORED BREATHING.
[2020-12-11 07:07] LABS: ALBUMIN 2.2 g/dL (3.4-5.0); CREATININE 2.6 mg/dL (0.6-1.3); MAGNESIUM 2.6 mg/dL (1.8-2.4); PHOSPHORUS 6.2 mg/dL (2.5-4.9)
--- NOTE | 2020-12-11 07:35 | NUR ---
REPORT GIVEN TO AM SHIFT. PT NO DISTRESS AT THIS TIME.
[2020-12-11] MEDS: SENNA 8.6 MG TAB NG SCH ×2 (09:51→20:05)
[2020-12-11] MEDS: DOCUSATE 100 MG/10 ML UDC GT SCH (09:51)
[2020-12-11] MEDS: FAMOTIDINE 20 MG/2 ML VIAL IV SCH ×2 (09:51→20:05)
[2020-12-11] MEDS: bisacodyL 10 MG SUPP RC SCH (09:51)
[2020-12-11] MEDS: ASCORBIC ACID 500 MG TAB PO SCH (09:52)
[2020-12-11] MEDS: POLYETHYLENE GLYCOL 17 GM/PKT NG SCH ×2 (09:52→20:05)
[2020-12-11] MEDS: ZINC SULF 220 MG CAP PO SCH (09:52)
--- NOTE | 2020-12-11 12:00 | NUR ---
DR. APARICIO MADE AWARE MORPHINE IV IS OFF AND PATIENT HAS NOT HAD A BM FOR A FEW DAYS.
[2020-12-11] MEDS: LACTULOSE 20 GM/30 ML UDC PO SCH ×2 (13:05→16:04)
--- NOTE | 2020-12-11 14:22 | NUR ---
12/11/20 FOLLOW UP COMPLETED PLEASE REFER TO NUTRITION ASSESSMENT UNDER CARE ACTIVITY FOR ESTIMATED NUTRITIONAL NEEDS. 1. RECOMMEND NEPRO 1.2 @ 40 ML/HR X 24 HOURS WITH PROSOURCE BID ; FLUSH 100ML Q4H -THIS PROVIDES 960 ML OF VOLUME, 1848 KCAL, AND 107 GM OF PROTEIN, MEETING >90% OF ESTIMATED KCAL AND PROTEIN NEEDS. 2. F/U 2-3 DAYS; HIGH RISK SHAMA VALENTIN, RD
[2020-12-11 15:06] LABS: HEPATITIS A ANTIBODY IGM Negative (Negative); HEPATITIS B SURFACE ANTIGEN Negative (Negative)
--- NOTE | 2020-12-11 17:50 | NUR ---
PT REMAINS ON DOCUMENTED VENT SETTINGS. PT NOT IN ANY DISTRESS AT THIS TIME. VENT ALARMS ON AND FUNCTIONING.
--- NOTE | 2020-12-11 19:00 | NUR ---
REPORT RECEIVED FROM AM SHIFT RN FOR CONTINUITY OF CARE. SR ON MONITOR. SEDATED, RASS -3. ETT TO VENT. AC/PRVC MODE. FIO2 60%, RATE 26, TV 350, PEEP 12. IV SITE GRAHAM PICC LINE INFUSING PROPOFOL 30 MCG/KG/MIN. OGT TO FEEDING. 50 RESIDUALS NOTED. SKIN JAUNDICE, WARM AND DRY. MARION CATHETER IN PLACE. DRY WEIGHT 83 KG. HOB 30 DEGREES, BED LOCKED IN LOWEST POSITION. SAFETY PRECAUTIONS IN PLACE.
--- NOTE | 2020-12-11 19:00 | NUR ---
GAVE REPORT TO
--- NOTE | 2020-12-11 21:03 | NUR ---
PT DESAT 85%. PT ORAL SUCTIONED. RT CALLED.
--- NOTE | 2020-12-11 21:08 | NUR ---
PLACED PATIENT ON 100% FIO2. PATIENTS SATS DROPPED TO 86%. PATIENT IS TACHYPNEIC.
--- NOTE | 2020-12-11 22:17 | NUR ---
2210 LOWERED FIO2 TO 80% SATS 97% AT THIS TIME
--- NOTE | 2020-12-11 23:30 | NUR ---
PT SEDATED, RESPIRATIONS EVEN AND UNLABORED. CHEST RISE IS SYMMETRICAL. HOB 30 DEGREES. BED LOCKED IN LOWEST POSITION. WILL CONTINUE TO MONITOR.
[2020-12-12] VITALS (29 sets, daily range): BP systolic 86–120; BP diastolic 46–70
[2020-12-12] MEDS: PROPOFOL 1000 MG/100 ML PREMIX 100 ML IV PRN ×3 (00:11→13:31)
--- NOTE | 2020-12-12 01:00 | NUR ---
PT HAD 1 LARGE BM. LIGHT BROWN, LIQUID STOOL. PT CLEANED, REPOSITIONED. MARION CARE PROVIDED. ORAL CARE PROVIDED. SAFETY PRECAUTIONS IN PLACE. HOB 30 DEGREES. BED LOCKED IN LOWEST POSITION. WILL CONTINUE TO MONITOR.
--- NOTE | 2020-12-12 02:20 | NUR ---
PT SEDATED, RESPIRATIONS EVEN AND UNLABORED. CHEST RISE IS SYMMETRICAL. HOB 30 DEGREES. BED LOCKED IN LOWEST POSITION. WILL CONTINUE TO MONITOR.
--- NOTE | 2020-12-12 03:45 | NUR ---
PT'S FAMILY CANDY CALLED, UPDATED ON PT STATUS. ALL QUESTIONS AND CONCERNS ANSWERED AT THIS TIME.
--- NOTE | 2020-12-12 04:02 | NUR ---
AM LABS DRAWN
--- NOTE | 2020-12-12 06:28 | NUR ---
PT SEDATED, RESPIRATIONS EVEN AND UNLABORED. CHEST RISE IS SYMMETRICAL. HOB 30 DEGREES. BED LOCKED IN LOWEST POSITION. WILL CONTINUE TO MONITOR.
[2020-12-12 06:29] LABS: BASOPHILS % (AUTO) 0.3 % (0.0-2.0); EOSINOPHILS % (AUTO) 0.3 % (0.0-4.0); HEMATOCRIT 32.3 % (36-52); HEMOGLOBIN 10.8 g/dL (12.0-18.0); LYMPHOCYTES # (AUTO) 0.5 K/uL (2.0-11.5); LYMPHOCYTES % (AUTO) 4.3 % (20.5-51.1); MEAN CORPUSCULAR HEMOGLOBIN 32 pg (27-31); MEAN CORPUSCULAR HGB CONC 33 g/dL (33-37); MEAN CORPUSCULAR VOLUME 94.5 fL (80-94); MONOCYTES # (AUTO) 0.3 K/uL (0.8-1.0); NEUTROPHILS # (AUTO) 9.8 K/uL (1.8-7.7); NEUTROPHILS % (AUTO) 92.1 % (42.2-75.2); PLATELET COUNT (AUTO) 94 K/uL (140-450); RED BLOOD CELL COUNT(AUTO) 3.42 MIL/uL (4.20-6.10); RED CELL DISTRIBUTION WIDTH 16.9 % (11.6-13.7); WHITE BLOOD COUNT (AUTO) 10.6 K/uL (4.8-10.8)
[2020-12-12 06:57] LABS: ALBUMIN 1.9 g/dL (3.4-5.0); ANION GAP 7.6 (8-16); CARBON DIOXIDE 34.1 mmol/L (21-32); CREATININE 2.1 mg/dL (0.6-1.3); MAGNESIUM 2.5 mg/dL (1.8-2.4); POTASSIUM 3.7 mmol/L (3.5-5.1)
--- NOTE | 2020-12-12 07:00 | NUR ---
REPORT GIVEN TO GAGAN QUINTANILLA FOR CONTINUITY OF CARE
[2020-12-12 07:26] LABS: BILIRUBIN,DIRECT 6.5 mg/dL (0.0-0.3)
[2020-12-12 07:31] LABS: TOTAL BILIRUBIN 6.9 mg/dL (0.0-1.0)
--- NOTE | 2020-12-12 07:46 | NUR ---
RECEIVED REPORT FROM SEVERO. PER SEVERO, PATIENT HAD A LARGE VERY SOFT BM.
[2020-12-12] MEDS: FAMOTIDINE 20 MG/2 ML VIAL IV SCH ×2 (08:45→20:46)
[2020-12-12] MEDS: ASCORBIC ACID 500 MG TAB PO SCH (08:45)
[2020-12-12] MEDS: ZINC SULF 220 MG CAP PO SCH (08:45)
[2020-12-12] MEDS: DOCUSATE 100 MG/10 ML UDC GT SCH (08:46)
[2020-12-12] MEDS: POLYETHYLENE GLYCOL 17 GM/PKT NG SCH ×2 (08:46→21:00)
[2020-12-12] MEDS: SENNA 8.6 MG TAB NG SCH ×2 (08:47→20:44)
[2020-12-12] MEDS: bisacodyL 10 MG SUPP RC SCH (08:48)
[2020-12-12] MEDS: LACTULOSE 20 GM/30 ML UDC PO SCH ×3 (08:50→17:00)
--- NOTE | 2020-12-12 11:03 | NUR ---
DR. APARICIO MADE AWARE OF HEPARIN SQ WAS HELD TODAY DUE TO PLT 94. PER DR. APARICIO, OK TO GIVE IF PLT IS MORE THAN 90.
[2020-12-12] MEDS: NOREPINEPHRINE 8 MG in DEXTROSE 5% 250 ML IV PRN (11:54)
--- NOTE | 2020-12-12 17:30 | NUR ---
CHANGE GRAHAM PICC LINE DRESSING.
--- NOTE | 2020-12-12 19:18 | NUR ---
Received report from ERICK Carrington RN, on Levophed Drip @ 5mcg, Propofol @30mcg, MSO4 Drip @1mg/hr, Jose Rafael.
[2020-12-13] VITALS (29 sets, daily range): BP systolic 86–136; BP diastolic 42–90
[2020-12-13] MEDS: MORPHINE SULFATE 50 MG in NACL 0.9% 45 ML IV PRN (01:18)
[2020-12-13] MEDS: ACETAMINOPHEN 650 MG/20.3 ML UDC PO PRN ×2 (02:13→12:45)
[2020-12-13] MEDS: PROPOFOL 1000 MG/100 ML PREMIX 100 ML IV PRN ×2 (02:19→10:42)
[2020-12-13 06:00] LABS: BASOPHILS # (AUTO) 0.1 K/uL (0.00-0.22); BASOPHILS % (AUTO) 0.6 % (0.0-2.0); EOSINOPHILS # (AUTO) 0.1 K/uL (0-0.4); EOSINOPHILS % (AUTO) 1.3 % (0.0-4.0); HEMATOCRIT 30.2 % (36-52); LYMPHOCYTES # (AUTO) 0.6 K/uL (2.0-11.5); LYMPHOCYTES % (AUTO) 6.1 % (20.5-51.1); MEAN CORPUSCULAR HEMOGLOBIN 32 pg (27-31); MEAN CORPUSCULAR HGB CONC 33 g/dL (33-37); MONOCYTES # (AUTO) 0.5 K/uL (0.8-1.0); MONOCYTES % (AUTO) 5.1 % (1.7-9.3); NEUTROPHILS # (AUTO) 9.1 K/uL (1.8-7.7); NEUTROPHILS % (AUTO) 86.9 % (42.2-75.2); PLATELET COUNT (AUTO) 140 K/uL (140-450); RED BLOOD CELL COUNT(AUTO) 3.15 MIL/uL (4.20-6.10); RED CELL DISTRIBUTION WIDTH 17.1 % (11.6-13.7); WHITE BLOOD COUNT (AUTO) 10.5 K/uL (4.8-10.8)
[2020-12-13 06:37] LABS: ALBUMIN 1.7 g/dL (3.4-5.0); ANION GAP 3.1 (8-16); CARBON DIOXIDE 38.3 mmol/L (21-32); MAGNESIUM 2.5 mg/dL (1.8-2.4); PHOSPHORUS 3.7 mg/dL (2.5-4.9); POTASSIUM 4.4 mmol/L (3.5-5.1); TOTAL BILIRUBIN 4.7 mg/dL (0.0-1.0)
--- NOTE | 2020-12-13 07:30 | NUR ---
RECEIVED REPORT FROM POWER SWITCHBOARD OPERATOR NURSE. PT IN NO ACUTE DISTRESS WITH BOTH EYES CLOSED, PILLOWS USED TO OFFLOAD PRESSURE. SEDATED TO RASS -3, DRY WEIGHT 83 KG RESPIRATION EVEN, SHALLOW, AND UNLABORED ON ETT TO VENT, AC/PRVC FIO2 60%, TV 350, RATE 26, PEEP 12, SPO2 92% AT THIS TIME. BILAT EVEN CHEST RISE AND FALL NOTED, IV ON GRAHAM PICC, CLEAN AND INTACT, RUNNING LEVOPHED 8 MCG/MIN, PROPOFOL 30 MCG/KG/MIN, MORPHINE 1 MG/HR, SKIN WARM TO TOUCH, INTACT, LOW JONI SCORE. ABDOMEN FLAT AND SOFT. OGT IN PLACE, FEEDING ONGOING WITH NEPRO AT 40ML/HR, FWF 100/4HR. MARION IN PLACE, DRAINING WITH GRAVITY, DARK SOUTH URINE IN BAG NOTED. . ENHANCED DROPLET PRECAUTION, FALL RISK PRECAUTION, ASPIRATION PRECAUTION IN PLACE. SAFETY MEASURES IN PLACE. BED IN LOW POSITION, HOB ELEVATED 35 DEGREE AND BED LOCKED, PLAN OF CARE REVIEWED.
[2020-12-13] MEDS: LACTULOSE 20 GM/30 ML UDC PO SCH ×3 (08:52→17:00)
[2020-12-13] MEDS: FAMOTIDINE 20 MG/2 ML VIAL IV SCH ×2 (08:52→20:37)
[2020-12-13] MEDS: ASCORBIC ACID 500 MG TAB PO SCH (08:53)
[2020-12-13] MEDS: ZINC SULF 220 MG CAP PO SCH (08:53)
[2020-12-13] MEDS: DOCUSATE 100 MG/10 ML UDC GT SCH (08:54)
[2020-12-13] MEDS: SENNA 8.6 MG TAB NG SCH ×2 (08:54→20:38)
[2020-12-13] MEDS: POLYETHYLENE GLYCOL 17 GM/PKT NG SCH ×2 (08:54→20:38)
[2020-12-13] MEDS: bisacodyL 10 MG SUPP RC SCH (08:55)
--- NOTE | 2020-12-13 12:05 | NUR ---
SMALL LOOSE LIGHT BROWN STOOL, PERICARE DONE, CHG WIPE DONE, MARION CARE DONE, ORAL CARE DONE, COOL WASH CLOTH BATH GIVEN.
--- NOTE | 2020-12-13 12:45 | NUR ---
PRN TYLENOL GIVEN FOR TEMP 100.4
[2020-12-13] MEDS ORDERED: Z-GUARD PASTE TP ONE (12:53)
--- NOTE | 2020-12-13 13:05 | NUR ---
SPOKE WITH SISTER NAM WITH FAMILY MEMBER TRANSLATING, CURRENT CONDITION DISCUSSED, NAM WANTS DOCTOR TO CALL CANDY WHEN POSSIBLE TO DISCUSS YELLOW SKIN AND LIVER CONDITION
[2020-12-14] VITALS (28 sets, daily range): BP systolic 75–134; BP diastolic 38–99
[2020-12-14 06:07] LABS: BASOPHILS # (AUTO) 0.2 K/uL (0.00-0.22); BASOPHILS % (AUTO) 1.5 % (0.0-2.0); EOSINOPHILS # (AUTO) 0.3 K/uL (0-0.4); EOSINOPHILS % (AUTO) 2.3 % (0.0-4.0); HEMATOCRIT 34.2 % (36-52); LYMPHOCYTES # (AUTO) 0.9 K/uL (2.0-11.5); LYMPHOCYTES % (AUTO) 8.1 % (20.5-51.1); MEAN CORPUSCULAR HEMOGLOBIN 31 pg (27-31); MEAN CORPUSCULAR HGB CONC 32 g/dL (33-37); MEAN CORPUSCULAR VOLUME 96.5 fL (80-94); MONOCYTES # (AUTO) 0.4 K/uL (0.8-1.0); MONOCYTES % (AUTO) 3.8 % (1.7-9.3); NEUTROPHILS # (AUTO) 9.3 K/uL (1.8-7.7); NEUTROPHILS % (AUTO) 84.3 % (42.2-75.2); PLATELET COUNT (AUTO) 171 K/uL (140-450); RED BLOOD CELL COUNT(AUTO) 3.54 MIL/uL (4.20-6.10); RED CELL DISTRIBUTION WIDTH 17.5 % (11.6-13.7); WHITE BLOOD COUNT (AUTO) 11.1 K/uL (4.8-10.8)
[2020-12-14 06:21] LABS: ANION GAP 10.4 (8-16); CARBON DIOXIDE 39.2 mmol/L (21-32); CREATININE 1.6 mg/dL (0.6-1.3); POTASSIUM 4.6 mmol/L (3.5-5.1)
[2020-12-14 06:26] LABS: MAGNESIUM 2.4 mg/dL (1.8-2.4); PHOSPHORUS 3.8 mg/dL (2.5-4.9)
--- NOTE | 2020-12-14 07:30 | NUR ---
RECEIVED REPORT FROM NIGHT NURSE,PT VENTED VIA ETT, AC/PRVC OF 26, TV350, PEEP 12 CM H2O, UXX229%, NOT IN DISTRESS, SATURATION 91%.PROPOFOL DRIP AT 18 MCG/KG TO KEEP RASS-3, MORPHINE AT 1MG/HR,VIA RIGHT UPPER ARM PICC,INFUSING WELL.OGT INTACT FOR CONTINUOUS FEEDING OF NEPRO AT 40 MLS/HR GOAL MET,TOLERATED.MARION CATHETER INTACT .
[2020-12-14] MEDS: ASCORBIC ACID 500 MG TAB PO SCH (08:10)
[2020-12-14] MEDS: FAMOTIDINE 20 MG/2 ML VIAL IV SCH ×2 (08:11→20:49)
[2020-12-14] MEDS: POLYETHYLENE GLYCOL 17 GM/PKT NG SCH ×2 (08:12→21:00)
[2020-12-14] MEDS: DOCUSATE 100 MG/10 ML UDC GT SCH (08:12)
[2020-12-14] MEDS: SENNA 8.6 MG TAB NG SCH ×2 (08:14→21:00)
[2020-12-14] MEDS: ZINC SULF 220 MG CAP PO SCH (08:15)
[2020-12-14] MEDS: bisacodyL 10 MG SUPP RC SCH (08:17)
[2020-12-14] MEDS: LACTULOSE 20 GM/30 ML UDC PO SCH ×3 (08:17→17:00)
--- NOTE | 2020-12-14 08:56 | NUR ---
DR BRITO HERE,SEEN PT,NOTED ALL PARAMETERS, TO INCREASE WATER FLUSH TO 200 MLS EVERY 4 HRS.
[2020-12-14] MEDS: PROPOFOL 1000 MG/100 ML PREMIX 100 ML IV PRN ×2 (11:38→22:56)
--- NOTE | 2020-12-14 11:45 | NUR ---
DR FATIMA HERE,SEEN PT,NOTED ALL PARAMETERS,CONTINUE TO MONITOR.
--- NOTE | 2020-12-14 14:56 | NUR ---
Pt brother Kavon called, updates on pt given to him, wanted to speak with the DR tomorrow morning,endorsed
--- NOTE | 2020-12-14 15:30 | NUR ---
Pt febrile-100F per axilla, skin warm to touch, cooling measures done, PRN meds given via tube, continue to observe.
[2020-12-14] MEDS: ACETAMINOPHEN 650 MG/20.3 ML UDC PO PRN ×2 (15:42→22:36)
--- NOTE | 2020-12-14 15:43 | NUR ---
12/14/20 FOLLOW UP COMPLETED PLEASE REFER TO NUTRITION ASSESSMENT UNDER CARE ACTIVITY FOR ESTIMATED NUTRITIONAL NEEDS. 1. CONTINUE NEPRO 1.2 @ 40 ML/HR X 24 HOURS WITH PROSOURCE BID; FLUSH 200 ML Q4H -THIS PROVIDES 960 ML OF VOLUME, 1848 KCAL, AND 107 GM OF PROTEIN, MEETING >90% OF ESTIMATED KCAL AND PROTEIN NEEDS. 2. F/U 2-3 DAYS; HIGH RISK SHAMA VALENTIN, RD
--- NOTE | 2020-12-14 17:41 | NUR ---
Temp rechecked-99.5 F per axilla, continue cooling measures.
[2020-12-14] MEDS: MORPHINE SULFATE 50 MG in NACL 0.9% 45 ML IV PRN (17:51)
--- NOTE | 2020-12-14 18:20 | NUR ---
HR-165-172, SVT, BP-89/66.O2 sat-90%, Dr Clarke called thru his cell phone,message left, awaiting reply
--- NOTE | 2020-12-14 18:44 | NUR ---
Called Dr Miller for the 2nd time due to pt sustained SVT 168, he ordered adenosine 6 mgs iv push and if not revereted to give 2nd dose of 12 mgs iv push. AT 1846 adenosine 6mgs ivpush given , with short runs of sr 58, but went back to svt 162
[2020-12-14] MEDS ORDERED: ADENOSINE 6 MG/2 ML VIAL IVP ONE ×2 (18:45→18:47)
[2020-12-14] MEDS ORDERED: ADENOSINE 6 MG/2 ML VIAL IVP SCH (18:55)
--- NOTE | 2020-12-14 19:01 | NUR ---
Pt still SVT to as high as 167, 2nd dose of adenosine 12 mgs iv push given ,short run of SR to as low as 66, after few minutes went back to SVT as high as 162
--- NOTE | 2020-12-14 19:12 | NUR ---
continue to monitor, to page again Dr Clarke for not converting to SR, endorsed to night nurse , still on svt 165, BP-
[2020-12-14] MEDS ORDERED: DIGOXIN 0.25 MG/ML AMP IV SCH ×2 (19:46→21:35)
[2020-12-14] MEDS ORDERED: DILTIAZEM 25 MG/5 ML VIAL IVP SCH (19:50)
--- NOTE | 2020-12-14 20:50 | NUR ---
Received pt. in Afib w/ RVR in the 160s to 170s. Dr. Destiny Clarke contacted w/ orders to adm. Digoxin & Cardizem IVP. HR reduced to 140s to 150s after Digoxin then decreased to 80s to 120s fos a few minutes then converted to ST @ 153-[address] Clarke contacted x 1 w/ no response @ this time. Cooling measures continued for T=99.4 deg. F. Repositioned. Secretions suctioned prn; obtained moderate amount of bloodtinged secretions. VAP oral care done. HOB kept up @ all times. Will cont. to monitor.
[2020-12-14] MEDS ORDERED: DILTIAZEM 125 MG in DEXTROSE 5% 100 ML IV SCH (21:35)
[2020-12-14] MEDS ORDERED: DILTIAZEM 125 MG/25 ML VIAL IV ONE (21:45)
--- NOTE | 2020-12-14 21:45 | NUR ---
Dr. Clarke returned call w/ orders to start Cardizem Drip noted & carried out. Pt. reverted back to A.fib w/ RVR in the 140s to 150s. Cardizem Drip initiated @ 5 mg/hr. Will titrate to keep HR<110 bpm. Levophed titrated up to keep SBP>90 mmHg. Will cont. to monintor.
--- NOTE | 2020-12-14 23:45 | NUR ---
Pt. self disconnected vent. tubings from force of PEEP. Pt. went asystole, then Bradycardic then Sinus Rhythm after reconnection & ventilation & oxygenation. Cardizem Drip DC. Pt. remained in Sinuis Rhythm after. Digoxin 2nd dose not adm. for episode of HR<60. Will cont. to monitor.
[2020-12-15] VITALS (78 sets, daily range): BP systolic 90–150; BP diastolic 43–82
[2020-12-15] MEDS: NOREPINEPHRINE 8 MG in DEXTROSE 5% 250 ML IV PRN (02:16)
--- NOTE | 2020-12-15 03:16 | NUR ---
Pt. remained in SR on the monitor. Levophed titrated down to keep SBP<90 mmHg. Secretions suctioned prn. kept clean & dry. VAP oral care done. Will cont. to monitor.
[2020-12-15 05:57] LABS: ANION GAP 5.6 (8-16); CREATININE 1.7 mg/dL (0.6-1.3); POTASSIUM 4.6 mmol/L (3.5-5.1)
--- NOTE | 2020-12-15 06:00 | NUR ---
CHG bath rendered. VAP oral care done w/ CHG. SB to SR on the scope. On Propofol, Levophed & Morphine Drips. Will cont. to monitor.
[2020-12-15 06:16] LABS: BASOPHILS # (AUTO) 0.1 K/uL (0.00-0.22); BASOPHILS % (AUTO) 1.1 % (0.0-2.0); EOSINOPHILS # (AUTO) 0.3 K/uL (0-0.4); EOSINOPHILS % (AUTO) 3.1 % (0.0-4.0); HEMATOCRIT 31.5 % (36-52); HEMOGLOBIN 10.3 g/dL (12.0-18.0); LYMPHOCYTES # (AUTO) 0.8 K/uL (2.0-11.5); LYMPHOCYTES % (AUTO) 8.3 % (20.5-51.1); MEAN CORPUSCULAR HEMOGLOBIN 32 pg (27-31); MEAN CORPUSCULAR HGB CONC 33 g/dL (33-37); MEAN CORPUSCULAR VOLUME 97.7 fL (80-94); MONOCYTES # (AUTO) 0.4 K/uL (0.8-1.0); MONOCYTES % (AUTO) 4.3 % (1.7-9.3); NEUTROPHILS # (AUTO) 8.1 K/uL (1.8-7.7); NEUTROPHILS % (AUTO) 83.2 % (42.2-75.2); PLATELET COUNT (AUTO) 209 K/uL (140-450); RED BLOOD CELL COUNT(AUTO) 3.23 MIL/uL (4.20-6.10); RED CELL DISTRIBUTION WIDTH 17.7 % (11.6-13.7); WHITE BLOOD COUNT (AUTO) 9.7 K/uL (4.8-10.8)
--- NOTE | 2020-12-15 07:15 | NUR ---
Report given to Danae w/ all questions answered. Care endorsed.
--- NOTE | 2020-12-15 07:30 | NUR ---
RECEIVED BEDSIDE REPORT FROM SHOPPING INSPECTOR NURSE FEBRUARY FOR CONTINUITY OF CARE, PATIENT IS LYING ON BED COMFORTABLY, RASS -3, DRY WEIGHT 83 KG, FLACC 0. RESPIRATION EVEN, SHALLOW, AND UNLABORED ON ETT TO VENT, AC/PRVC FIO2 70%, RATE 26, PEEP 13, SPO2 90%, LUNGS SOUND COARSE ON AUSCULTATION. PUPILS 3 MM SLUGGISH, UNABLE TO TRACK. GRAHAM PICC, CLEAN AND INTACT, RUNNING LEVOPHED 3 MCG/MIN, PROPOFOL 15 MCG/KG/MIN, MORPHINE 1 MG/HR AND NS 10 ML/HR. SKIN CLEAN AND DRY, WARM TO TOUCH, LOW JONI SCALE. MARION IN PLACE, DRAINING WITH GRAVITY, DARK SOUTH URINE IN BAG NOTED. ABDOMEN ROUND AND SOFT. OGT IN PLACE, NOT RUNNING ANY FEEDING AT THIS TIME. HEEL PROTECTORS AND PILLOWS USE TO OFFLOADED PRESSURE. ENHANCED DROPLET PRECAUTION IN PLACE. SAFETY MEASURES IN PLACE. HOB ELEVATED 35 DEGREE, BED IN LOW POSITION, AND BED LOCKED. Addendum: 12/15/20 at 0806 by Danae Haines RN RECTAL TUBE IN PLACE, DRAINING WITH GRAVITY.
[2020-12-15] MEDS: PROPOFOL 1000 MG/100 ML PREMIX 100 ML IV PRN ×2 (07:33→22:04)
[2020-12-15] MEDS: ZINC SULF 220 MG CAP PO SCH (08:45)
[2020-12-15] MEDS: DOCUSATE 100 MG/10 ML UDC GT SCH (08:45)
[2020-12-15] MEDS: FAMOTIDINE 20 MG/2 ML VIAL IV SCH ×2 (08:45→20:24)
[2020-12-15] MEDS: ASCORBIC ACID 500 MG TAB PO SCH (08:45)
[2020-12-15] MEDS: bisacodyL 10 MG SUPP RC SCH (08:46)
[2020-12-15] MEDS: POLYETHYLENE GLYCOL 17 GM/PKT NG SCH ×2 (08:46→20:23)
[2020-12-15] MEDS: LACTULOSE 20 GM/30 ML UDC PO SCH ×3 (08:46→17:06)
[2020-12-15] MEDS: SENNA 8.6 MG TAB NG SCH ×2 (08:46→20:23)
--- NOTE | 2020-12-15 09:10 | NUR ---
CHECKED OGT RESIDUAL RECEIVED < 5 ML WHITE RESIDUAL, FLUSHED. ADMINISTERED SCHEDULED AM MEDS PER MD ORDER, HELD DULCOLAX SUPPOSITORY DUE T RECTAL TUBE IN PLACE, PATIENT IS HAVING DIARRHEA, FLUSHED BEFORE AND AFTER MEDS. PROVIDED AM HYGIENE CARE, ORAL CARE, MARION CARE, CHG BATH, WITH ASSIST, REPOSITIONED PATIENT, OFFLOADED PRESSURE FROM MEDICAL DEVICES AND BONY AREAS, HEEL PROTECTORS IN PLACE BILATERALLY. CONTINUE OGT FEEDING NEPRO AT 40 ML/HR. SAFETY MEASURES IN PLACE. HOB ELEVATED 35 DEGREE, BED IN LOW POSITION, AND BED LOCKED.
--- NOTE | 2020-12-15 09:25 | NUR ---
DR BRITO IS ROUNDING ON PATIENT, UPDATED MD WITH PATIENT'S CURRENT CONDITION. DR BRITO SAID CONTINUE WITH 200 ML WATER FLUSH SINCE SODIUM IS TRENDING DOWN FROM YESTERDAY.
--- NOTE | 2020-12-15 11:10 | NUR ---
DR FATIMA IS ROUNDING ON PATIENT, UPDATED MD WITH PATIENT'S CURRENT CONDITION.
--- NOTE | 2020-12-15 12:40 | NUR ---
DR MAJOR IS ROUNDING ON PATIENT.
--- NOTE | 2020-12-15 12:47 | NUR ---
RECEIVED A CALL FROM PATIENT'S SISTER NAM WITH AUTOMOBILE DAMAGE APPRAISER, UPDATED NAM WITH PATIENT'S CURRENT CONDITION AND ANSWERED ALL HER QUESTIONS, NAM WAS AWARE.
--- NOTE | 2020-12-15 12:54 | NUR ---
CHANGED A NEW BOTTLE OF TUBE FEEDING NEPRO, CONTINUE AT 40 ML/HR AND WATER FLUSH 200 ML/Q6H. CHANGED TO NEW TUBING.
--- NOTE | 2020-12-15 13:21 | NUR ---
CHECKED OGT RESIDUAL RECEIVED 25 ML WHITE RESIDUAL, FLUSHED. ADMINISTERED SCHEDULED MED PER MD ORDER, FLUSHED BEFORE AND AFTER MED. WITH ASSIST, REPOSITIONED PATIENT, OFFLOADED PRESSURE FROM MEDICAL DEVICES AND BONY AREAS, HEEL PROTECTORS IN PLACE BILATERALLY. SAFETY MEASURES IN PLACE. HOB ELEVATED 35 DEGREE, BED IN LOW POSITION, AND BED LOCKED.
--- NOTE | 2020-12-15 15:38 | NUR ---
ORAL CARE PROVIDED, CHECKED OGT RESIDUAL RECEIVED 20 ML, CONTINUE FEEDING. REPOSITIONED PATIENT, OFFLOADED PRESSURE WITH PILLOWS, SAFETY MEASURES IN PLACE.
--- NOTE | 2020-12-15 17:06 | NUR ---
ADMINISTERED SCHEDULED MED PER MD ORDER, FLUSHED BEFORE AND AFTER MED. WITH ASSIST, REPOSITIONED PATIENT, AND OFFLOADED PRESSURE WITH PILLOWS, HEEL PROTECTORS IN PLACE. SAFETY MEASURES IN PLACE. BED IN LOW POSITION, HOB ELEVATED 35 DEGREE, AND BED LOCKED.
--- NOTE | 2020-12-15 19:20 | NUR ---
Received report from ERICK Fink QUALITY OFFICER, Patient is Sedated, RASS-3, OGT= Nephro @40ml/hr, ETT->Vent: AC/PRVC: Rate=26, QT=261, FiO2= 80%, PEEP= 13, GRAHAM PICC= Propofol Drip @15mcg= 7.46ml/hr, MSO4 Drip @1mg= 1ml/hr, Levophed Drip @3mcg= 5.61ml/hr, Mantilla, Rectal tube.
--- NOTE | 2020-12-15 19:58 | NUR ---
RECEIVED PATIENT FROM AM SHIFT. PATIENT WAS SEEN AND ASSESSED. FOUND PT IN SUPINE POSITION. PATIENT IS INTUBATED WITH ETT SIZE 7.5 AND SECURED WITH BITTING BLOCK ANCHOR-FAST AT 23cm. PATIENT IS ON VENT SETTINGS: AC/PRVC RR 26, VT 350, PEEP 13, FiO2 80% WITH SPO2 OF 94%.NOTICED ADEQUATE CHEST RISE AND FALL. AMBU BAG AT BEDSIDE. VENT IS PLUGGED IN RED OUTLET. ALARMS SET AND AUDIBLE TO ENVIRONMENT. SUCTIONED MODERATE AMOUNT OF YELLOW THICK SECRETIONS FROM ETT. ORAL CARE DONE. SUCTIONED CLEAR WHITE THIN SECRETIONS ORALLY. AIRWAY IS PATENT. AUSCULTATION REVEALS BILATERAL RALES BREATH SOUNDS ON THE BASES AND CLEAR/ DIMINISHED ON THE UPPER LOBES. PATIENT IS IN NO APPARENT RESPIRATORY DISTRESS AT THIS TIME. WILL CONTINUE TO MONITOR PATIENT.
[2020-12-16] VITALS (34 sets, daily range): BP systolic 88–154; BP diastolic 42–98
[2020-12-16 06:08] LABS: HEMATOCRIT 31.7 % (36-52); HEMOGLOBIN 10.2 g/dL (12.0-18.0); MEAN CORPUSCULAR HEMOGLOBIN 31 pg (27-31); MEAN CORPUSCULAR HGB CONC 32 g/dL (33-37); MEAN CORPUSCULAR VOLUME 97.1 fL (80-94); PLATELET COUNT (AUTO) 232 K/uL (140-450); RED BLOOD CELL COUNT(AUTO) 3.27 MIL/uL (4.20-6.10); RED CELL DISTRIBUTION WIDTH 17.8 % (11.6-13.7); WHITE BLOOD COUNT (AUTO) 10.9 K/uL (4.8-10.8)
[2020-12-16 06:16] LABS: ANION GAP 2.4 (8-16); CREATININE 1.5 mg/dL (0.6-1.3); POTASSIUM 4.4 mmol/L (3.5-5.1)
[2020-12-16 07:03] LABS: EOSINOPHILS % (MANUAL) 2 % (0-4); MONOCYTES % (MANUAL) 4 % (5-12)
[2020-12-16 07:04] LABS: LYMPHOCYTES % (MANUAL) 6 % (20-46)
[2020-12-16] MEDS: bisacodyL 10 MG SUPP RC SCH (09:00)
[2020-12-16] MEDS: DOCUSATE 100 MG/10 ML UDC GT SCH (09:21)
[2020-12-16] MEDS: FAMOTIDINE 20 MG/2 ML VIAL IV SCH ×2 (09:23→20:52)
[2020-12-16] MEDS: POLYETHYLENE GLYCOL 17 GM/PKT NG SCH ×2 (09:23→20:53)
[2020-12-16] MEDS: LACTULOSE 20 GM/30 ML UDC PO SCH ×3 (09:24→17:00)
[2020-12-16] MEDS: SENNA 8.6 MG TAB NG SCH ×2 (09:24→20:54)
[2020-12-16] MEDS: ZINC SULF 220 MG CAP PO SCH (09:25)
[2020-12-16] MEDS: ASCORBIC ACID 500 MG TAB PO SCH (09:25)
--- NOTE | 2020-12-16 19:15 | NUR ---
RECEIVED PATIENT FROM AM SHIFT. PATIENT WAS SEEN AND ASSESSED. FOUND PT IN SUPINE POSITION. PATIENT IS INTUBATED WITH ETT SIZE 7.5 AND SECURED WITH BITTING BLOCK ANCHOR-FAST AT 23cm @ LIP. PATIENT IS ON VENT SETTINGS: AC/PRVC RR 26, VT 350, PEEP 13, FiO2 80% WITH SPO2 OF 84%. NOTICED ADEQUATE CHEST RISE AND FALL. AMBU BAG AT BEDSIDE. VENT IS PLUGGED IN RED OUTLET. ALARMS SET AND AUDIBLE TO ENVIRONMENT. SUCTIONED SMALL AMOUNT OF YELLOW THICK SECRETIONS FROM ETT. ORAL CARE DONE. SUCTIONED CLEAR WHITE THIN SECRETIONS ORALLY AND PT TOLERATED PROCEDURE WELL. AIRWAY IS PATENT. AUSCULTATION REVEALS BILATERAL RALES BREATH SOUNDS ON THE BASES AND CLEAR/ DIMINISHED ON THE UPPER LOBES. PATIENT IS IN NO APPARENT RESPIRATORY DISTRESS AT THIS TIME. WILL CONTINUE TO MONITOR PATIENT.
--- NOTE | 2020-12-16 19:50 | NUR ---
PT DESATURATING IN LOW 80s. SWITCHED PT FROM PRVC TO PC TO IMPROVE OXYGENATION. PREVIOUS SETTINGS: AC/PRVC 26, 350 ,+13, 80%. SPO2 83% CURRENT SETTINGS: PC 16 cmH20 RR 30 bpm PEEP 13 cmH20 FiO2 80% SPO2 97%. CHANGES REPORTED TO DR. APARICIO. ABG IN 2 HOURS.
--- NOTE | 2020-12-16 22:50 | NUR ---
ABG RESULTS WERE REPORTED TO DR. APARICIO. ORDERED TO INCREASE PEEP FROM 13 TO 14 cmH20. CHANGES MADE AND RN NOTIFIED. WILL CONTINUE TO MONITOR PT.
[2020-12-17] VITALS (34 sets, daily range): BP systolic 109–157; BP diastolic 43–74
[2020-12-17] MEDS: PROPOFOL 1000 MG/100 ML PREMIX 100 ML IV PRN ×2 (01:55→14:58)
[2020-12-17 06:15] LABS: BASOPHILS # (AUTO) 0.1 K/uL (0.00-0.22); BASOPHILS % (AUTO) 1.2 % (0.0-2.0); EOSINOPHILS # (AUTO) 0.1 K/uL (0-0.4); EOSINOPHILS % (AUTO) 1.3 % (0.0-4.0); HEMATOCRIT 31.8 % (36-52); HEMOGLOBIN 10.1 g/dL (12.0-18.0); LYMPHOCYTES # (AUTO) 0.6 K/uL (2.0-11.5); LYMPHOCYTES % (AUTO) 5.8 % (20.5-51.1); MEAN CORPUSCULAR HEMOGLOBIN 31 pg (27-31); MEAN CORPUSCULAR HGB CONC 32 g/dL (33-37); MEAN CORPUSCULAR VOLUME 98.9 fL (80-94); MONOCYTES # (AUTO) 0.5 K/uL (0.8-1.0); MONOCYTES % (AUTO) 4.7 % (1.7-9.3); PLATELET COUNT (AUTO) 278 K/uL (140-450); RED BLOOD CELL COUNT(AUTO) 3.22 MIL/uL (4.20-6.10); RED CELL DISTRIBUTION WIDTH 18.3 % (11.6-13.7); WHITE BLOOD COUNT (AUTO) 10.3 K/uL (4.8-10.8)
[2020-12-17 06:22] LABS: ANION GAP 5.2 (8-16); CREATININE 1.6 mg/dL (0.6-1.3); POTASSIUM 4.8 mmol/L (3.5-5.1)
[2020-12-17 06:39] LABS: CARBON DIOXIDE 41.6 mmol/L (21-32)
[2020-12-17] MEDS: NACL 0.45% 1,000 ML IV SCH ×2 (07:10→17:52)
--- NOTE | 2020-12-17 07:20 | NUR ---
RECEIVED BEDSIDE REPORT FROM ARTIFICIAL GLASS EYE MAKER NURSE FOR CONTINUITY OF CARE. PATIENT IS LYING IN BED COMFORTABLY, SEDATED TO RASS -3, DRY WEIGHT 83 KG, FLACC 0. RESPIRATION EVEN, SHALLOW, AND UNLABORED ON ETT TO VENT, AC/PRVC FIO2 80%, RATE 26, PEEP 14, SPO2 90%, LUNGS SOUND DIMINISHED ON AUSCULTATION. PUPILS 3 MM SLUGGISH, UNABLE TO TRACK. GRAHAM PICC, CLEAN AND INTACT, RUNNING LEVOPHED, PROPOFOL, MORPHINE, AND .45 NS. SEE IV SPREADSHEET. MARION IN PLACE, DRAINING TO GRAVITY, CLEAR SOUTH URINE NOTED. ABDOMEN SOFT, NON-DISTENDED. OGT IN PLACE, RUNNING FEEDING ORDERED. RECTAL TUBE IN PLACE, DRAINING BROWN LIQUID STOOL. ECCHYMOSIS TO RT KNEE NOTED. HEEL PROTECTORS AND PILLOWS USED TO OFFLOADED PRESSURE AREAS. ENHANCED DROPLET PRECAUTION IN PLACE. SAFETY MEASURES IN PLACE. HOB ELEVATED >30 DEGREES, BED LOCKED AND LOW.
[2020-12-17] MEDS: POLYETHYLENE GLYCOL 17 GM/PKT NG SCH ×2 (08:40→20:50)
[2020-12-17] MEDS: LACTULOSE 20 GM/30 ML UDC PO SCH ×3 (08:40→17:52)
[2020-12-17] MEDS: SENNA 8.6 MG TAB NG SCH ×2 (08:40→20:50)
[2020-12-17] MEDS: ZINC SULF 220 MG CAP PO SCH (08:40)
[2020-12-17] MEDS: FAMOTIDINE 20 MG/2 ML VIAL IV SCH ×2 (08:40→20:50)
[2020-12-17] MEDS: DOCUSATE 100 MG/10 ML UDC GT SCH (08:40)
[2020-12-17] MEDS: ASCORBIC ACID 500 MG TAB PO SCH (08:40)
[2020-12-17] MEDS: bisacodyL 10 MG SUPP RC SCH (08:41)
--- NOTE | 2020-12-17 14:58 | NUR ---
12/17/20 RD FOLLOW UP COMPLETED PLEASE REFER TO NUTRITION ASSESSMENT UNDER CARE ACTIVITY FOR ESTIMATED NUTRITIONAL NEEDS. 1. CONTINUE NEPRO 1.2 @ 40 ML/HR X 24 HOURS WITH PROSOURCE BID; FREE WATER FLUSH 250 ML Q6H -THIS PROVIDES 960 ML OF VOLUME, 1848 KCAL, AND 107 GM OF PROTEIN, MEETING >90% OF ESTIMATED KCAL AND PROTEIN NEEDS. 2. F/U 2-3 DAYS; HIGH RISK SHAMA VALENTIN, RD
--- NOTE | 2020-12-17 19:30 | NUR ---
REPORT GIVEN TO NIGHTSHIFT NURSE FOR CONTINUITY OF CARE. PICC LINE IN PLACE, PATENT AND INFUSING DRIPS ORDERED.
--- NOTE | 2020-12-17 19:45 | NUR ---
RECEIVED REPORT FROM AM SHIFT . PT ETT TO VENT WITH VENT SETTING AC/PC PRESSURE CONTROL 16, FIO2 80 PEEP 14,RATE 30. PT SEDATED WITH TO RASS -3, DRY WEIGHT 83 KG., LUNGS SOUND DIMINISHED ON AUSCULTATION. GRAHAM PICC, CLEAN AND INTACT,IV RUNNING PROPOFOL AT 15 MCG/KG/MIN, MORPHINE 1 MG/HR AND .45 NS AT 100 CC/HR. OGT IN PLACE WITH NEPRO AT 40 CC/HR AND H20 AT 250 CC Q 6 HRS. NOTED 50 CC RESIDUAL YELLOWISH COLOR. ABD SOFT NON DISTENDED.MARION IN PLACE, DRAINING TO GRAVITY,DARK SOUTH URINE NOTED. RECTAL TUBE IN PLACE, DRAINING BROWN LIQUID STOOL. LEFT EAR SCABS AND DISCOLORATION TO RT KNEE NOTED.CONTINUE ON DROPLET PRECAUTION. GENTLE CARE GIVEN. KEPT CLEAN AND DRY.
--- NOTE | 2020-12-17 21:00 | NUR ---
NIGHT MEDS GIVEN AND RADHA WELL.
[2020-12-18] VITALS (35 sets, daily range): BP systolic 82–148; BP diastolic 43–62
--- NOTE | 2020-12-18 00:35 | NUR ---
CANDY BOSCH BROTHER CALL AND UP DATED THE PT CONDITION.
[2020-12-18] MEDS: NACL 0.45% 1,000 ML IV SCH ×3 (03:24→23:10)
--- NOTE | 2020-12-18 04:00 | NUR ---
AM CARE GIVEN,BED BATH AND ORAL CARE RADHA WELL.
[2020-12-18] MEDS: PROPOFOL 1000 MG/100 ML PREMIX 100 ML IV PRN (04:37)
--- NOTE | 2020-12-18 07:06 | NUR ---
REPORT GIVEN TO AM SHIFT . PT CONT ON SEDATION. NO DISTRESS NOTED.
--- NOTE | 2020-12-18 07:20 | NUR ---
RECEIVED BEDSIDE REPORT FROM JACK OF ALL TRADES NURSE FOR CONTINUITY OF CARE. PATIENT IS LYING IN BED, SEDATED TO RASS -3, DRY WEIGHT 83 KG, FLACC 0. PUPILS 3 MM SLUGGISH, UNABLE TO TRACK. RESPONDS ONLY TO PAINFUL STIMULI. RESPIRATION EVEN AND UNLABORED. ETT TO VENT, AC/PRVC FIO2 80%, RATE 30, PEEP 14, SPO2 94%, LUNGS SOUND DIMINISHED THROUGHOUT UPON AUSCULTATION. GRAHAM PICC, CLEAN AND INTACT, RUNNING PROPOFOL, MORPHINE, AND .45 NS. SEE IV SPREADSHEET. MARION IN PLACE, DRAINING TO GRAVITY, CLEAR YELLOW-URINE NOTED. ABDOMEN SOFT, NON-DISTENDED. OGT IN PLACE, RUNNING FEEDING ORDERED. RECTAL TUBE IN PLACE, DRAINING BROWN LIQUID STOOL. ECCHYMOSIS TO RT KNEE NOTED. HEEL PROTECTORS AND PILLOWS USED TO OFFLOADED PRESSURE AREAS. ENHANCED DROPLET PRECAUTION IN PLACE. SAFETY MEASURES IN PLACE. HOB ELEVATED >30 DEGREES, BED LOCKED AND LOW.
[2020-12-18] MEDS: DOCUSATE 100 MG/10 ML UDC GT SCH (08:39)
[2020-12-18] MEDS: SENNA 8.6 MG TAB NG SCH ×2 (08:40→21:26)
[2020-12-18] MEDS: FAMOTIDINE 20 MG/2 ML VIAL IV SCH ×2 (08:40→21:17)
[2020-12-18] MEDS: LACTULOSE 20 GM/30 ML UDC PO SCH ×3 (08:40→17:00)
[2020-12-18] MEDS: POLYETHYLENE GLYCOL 17 GM/PKT NG SCH ×2 (08:40→21:17)
[2020-12-18] MEDS: ASCORBIC ACID 500 MG TAB PO SCH (08:41)
[2020-12-18] MEDS: bisacodyL 10 MG SUPP RC SCH (08:41)
[2020-12-18] MEDS: ZINC SULF 220 MG CAP PO SCH (08:41)
--- NOTE | 2020-12-18 09:00 | NUR ---
DR CONG BRITO AT [facility]. UPDATED ON PT CONDITION. NO NEW ORDERS AT THIS TIME. Addendum: 12/18/20 at [facility] by Yas Herron RN H20 FLUSH INCREASED. MD INPUT ORDER.
[2020-12-18] MEDS: MORPHINE SULFATE 50 MG in NACL 0.9% 45 ML IV PRN (15:25)
[2020-12-18] MEDS ORDERED: NOREPINEPHRINE 16 MG in DEXTROSE 5% 250 ML IV PRN (16:00)
[2020-12-18] MEDS ORDERED: VASOPRESSIN 20 UNITS in NACL 0.9% 250 ML IV SCH (16:00)
--- NOTE | 2020-12-18 19:00 | NUR ---
RECEIVED REPORT FROM DAY SHIFT PATIENT IS ORALLY VENTED AND SEDATED WITH PROPOFOL AND MORPHIND INFUSING THRU HIS RIGHT UPPER ARM PICC LINE PATIE ON MAINTENACE IV 0.45NS AT 100CC/HR.MARION CATH IN PLACE URINE IS SOUTH COLORED OGT IN PLACE URINE OUTPUT IS CLEAR,PATIENT CONTINUE TO SATURATE WELL ON CURRENT VENT SERTTING OGT IN PLACE,ON CONTINOUS FEEDING WITH NEPHRO
--- NOTE | 2020-12-18 19:11 | NUR ---
REPORT GIVEN TO NIGHTSHIFT NURSE, AT BEDSIDE FOR CONTINUITY OF CARE. PICC IN PLACE, PATENT.
--- NOTE | 2020-12-18 19:30 | NUR ---
UNABLE TO APPRECIATE PULSE BY DOPPLER B/P IS NOT AUDIBLE. EPINEPHRINE 1 AMP GIVEN CODE BLUE CALLED. Addendum: 12/18/20 at 2217 by Iman Douglas RN RN ABOVE NOTE IS MENT FOR ANOTHER PATIENT.
--- NOTE | 2020-12-18 19:30 | NUR ---
REPORT RECEIVED FROM STARR NEWBY PATIENT IS S/P FULLARREST AND CODE PATIENT IS REVIVED AND REMAIN ON MAX OF LEVO,NEOSYNEPHRINE,AND VASOPRESSIN.PATIENT IS ON 100% ON THE VENTILATOR.PATIENT RIGHT FEMORAL PULSE IS WEAK QAND FAINT BY DOPPLER.PATIENT IS HAVING AGONAL RESPIRATIOM COLOR IS DUSKY.FAMILY AT BEDSIDE SEEN PATIENT ONLY THRU WINDOW AND DECISION IS MADE THAT PATIENTIS GOING TO BE A MODIFIED CODE.
--- NOTE | 2020-12-18 20:00 | NUR ---
BLOOD PRESSURE IS NON PALPABLE PATIENT HEART RATE VERY IRREGULAR MAINTAIN ON MAX IMUM RATE OF PRESSORS.
--- NOTE | 2020-12-18 20:35 | NUR ---
DAYNE HUERTA HERE AT BEDSIDE .PATIENT PRONOUNCED AT 2041 Addendum: 12/18/20 at 2217 by Iman Douglas RN RN ABOVE NOTE IS MENT FOR ANOTHER PATIENT.
--- NOTE | 2020-12-18 21:40 | NUR ---
[facility] NOTIFIED PATIENT WAS GIVEN NO [id number] Addendum: 12/18/20 at 2215 by Iman Douglas RN RN AMEND ABOVE NOTE MENT FOR DIFFERENT PATIENT
[2020-12-19] VITALS (33 sets, daily range): BP systolic 98–146; BP diastolic 42–63
[2020-12-19 06:26] LABS: BASOPHILS # (AUTO) 0.1 K/uL (0.00-0.22); BASOPHILS % (AUTO) 1.2 % (0.0-2.0); EOSINOPHILS # (AUTO) 0.6 K/uL (0-0.4); EOSINOPHILS % (AUTO) 5.6 % (0.0-4.0); HEMATOCRIT 31.7 % (36-52); HEMOGLOBIN 9.8 g/dL (12.0-18.0); LYMPHOCYTES # (AUTO) 1.3 K/uL (2.0-11.5); LYMPHOCYTES % (AUTO) 11.7 % (20.5-51.1); MEAN CORPUSCULAR HEMOGLOBIN 31 pg (27-31); MEAN CORPUSCULAR HGB CONC 31 g/dL (33-37); MONOCYTES # (AUTO) 0.3 K/uL (0.8-1.0); MONOCYTES % (AUTO) 3.1 % (1.7-9.3); NEUTROPHILS # (AUTO) 8.5 K/uL (1.8-7.7); NEUTROPHILS % (AUTO) 78.4 % (42.2-75.2); PLATELET COUNT (AUTO) 314 K/uL (140-450); RED BLOOD CELL COUNT(AUTO) 3.14 MIL/uL (4.20-6.10); WHITE BLOOD COUNT (AUTO) 10.9 K/uL (4.8-10.8)
[2020-12-19 06:46] LABS: ANION GAP 4.3 (8-16); CREATININE 1.4 mg/dL (0.6-1.3); POTASSIUM 4.1 mmol/L (3.5-5.1)
[2020-12-19] MEDS: PROPOFOL 1000 MG/100 ML PREMIX 100 ML IV PRN ×2 (06:48→17:48)
[2020-12-19 06:50] LABS: CARBON DIOXIDE 41.8 mmol/L (21-32)
[2020-12-19 06:52] LABS: MAGNESIUM 2.1 mg/dL (1.8-2.4); PHOSPHORUS 4.2 mg/dL (2.5-4.9)
--- NOTE | 2020-12-19 08:00 | NUR ---
BEDSIDE REPORT RECEIVED FROM SOCORRO PINA. PATIENT IN BED, SEDATED, RASS-3, DRY WEIGHT 83KG. ON VENTILATOR 80FIO2/30/14PEEP. RIGHT UPPER ARM PICC, CLEAR/PATENT, PROPOFOL 15MCG/HR, MORPHINE 1MG/HR, AND D.45NS RUNNING. HCG WIPE DOWN CARE COMPLETE. OG IN PLACE, FEEDING RUNNING AT 40CC/HR. RESIDUAL 230CC, TUBE FEEDING HELD, WILL REASSESS. RECTAL TUBE IN PLACE. MARION CATHETER CLEAR/PATENT AND CARE COMPLETED. PATIENT REPOSITIONED, BED IN LOW POSITION AND ALL SAFETY CORE MEASURES IN PLACE. WILL CONTINUE TO MONITOR.
[2020-12-19] MEDS: POLYETHYLENE GLYCOL 17 GM/PKT NG SCH ×2 (08:51→20:22)
[2020-12-19] MEDS: LACTULOSE 20 GM/30 ML UDC PO SCH ×3 (08:51→17:43)
[2020-12-19] MEDS: FAMOTIDINE 20 MG/2 ML VIAL IV SCH ×2 (08:52→20:22)
[2020-12-19] MEDS: DOCUSATE 100 MG/10 ML UDC GT SCH (08:52)
[2020-12-19] MEDS: ASCORBIC ACID 500 MG TAB PO SCH (08:53)
[2020-12-19] MEDS: ZINC SULF 220 MG CAP PO SCH (08:55)
[2020-12-19] MEDS: SENNA 8.6 MG TAB NG SCH ×2 (08:55→20:22)
[2020-12-19] MEDS: bisacodyL 10 MG SUPP RC SCH ×2 (08:56→09:00)
[2020-12-19] MEDS: NACL 0.45% 1,000 ML IV SCH ×2 (09:47→19:46)
--- NOTE | 2020-12-19 11:00 | NUR ---
ADMINISTERED MEDICATIONS ORDERED. RESIDUAL CHECK COMPLETED, 400CC OF RESIDUAL, WILL CONTINUE TO HOLD FEEDING AND RECHECK RESIDUAL. ORAL CARE AND PICC LINE DRESSING CHANGE COMPLETED.
--- NOTE | 2020-12-19 13:00 | NUR ---
RESIDUAL RECHECK 100CC, OGT FEEDING RESTARTED. WILL CONTINUE TO MONITOR.
--- NOTE | 2020-12-19 19:16 | NUR ---
BEDSIDE REPORT GIVEN TO GROUP MANAGER NURSE FOR CONTINUITY OF CARE.
--- NOTE | 2020-12-19 19:20 | NUR ---
RECIEVED ENDORSEMENT FROM DAY SHIFT RN, PT LYING SUPINE W/HOB 30 DEGREES AND BED LOW, SEDATED RASS -3, SR ON MONITOR, PERIPHERAL PULES PALPABLE, ETT TO VENT ACPC FIO2 75% RATE 16 PEEP 12, ABD SOFT AND NON TENDER TO TOUCH, SKIN WARM AND DRY, PT AFEBRILE, GRAHAM PICC INFUSING HALF NS, PROPOFOL AND MORPHINE, FC IN PLACE DRAINING VIA GRAVITY, RECTAL TUBE IN PLACE DRAINING VIA GRAVITY, SKIN NON INTACT W/ R KNEE DTI, OGT TO FEEDING ONGOING, PT SHOWING NO SIGNS OF ACUTE DISTRESS, SAFETY MEASURES IN PLACE, WILL CONTINUE WITH CURRENT POC
[2020-12-19] MEDS ORDERED: CRUSHER, PILL MC ONE (20:43)
--- NOTE | 2020-12-19 21:30 | NUR ---
ADMINISTERED 2100H MEDICATIONS PER ORDERED
[2020-12-20] VITALS (33 sets, daily range): BP systolic 95–162; BP diastolic 42–75
[2020-12-20] MEDS: PROPOFOL 1000 MG/100 ML PREMIX 100 ML IV PRN ×2 (00:39→13:19)
--- NOTE | 2020-12-20 01:20 | NUR ---
PTS BROTHER CANDY CALLED AND WAS UPDATED IN REGARDS TO THE PTS CONDITION
[2020-12-20] MEDS: NACL 0.45% 1,000 ML IV SCH ×2 (05:55→16:05)
[2020-12-20 06:08] LABS: BASOPHILS # (AUTO) 0.2 K/uL (0.00-0.22); BASOPHILS % (AUTO) 1.9 % (0.0-2.0); HEMATOCRIT 28.6 % (36-52); HEMOGLOBIN 9.2 g/dL (12.0-18.0); MEAN CORPUSCULAR HEMOGLOBIN 32 pg (27-31); MEAN CORPUSCULAR HGB CONC 32 g/dL (33-37); MEAN CORPUSCULAR VOLUME 99.1 fL (80-94); MONOCYTES # (AUTO) 0.5 K/uL (0.8-1.0); MONOCYTES % (AUTO) 4.4 % (1.7-9.3); NEUTROPHILS # (AUTO) 7.9 K/uL (1.8-7.7); NEUTROPHILS % (AUTO) 74.5 % (42.2-75.2); PLATELET COUNT (AUTO) 301 K/uL (140-450); RED BLOOD CELL COUNT(AUTO) 2.89 MIL/uL (4.20-6.10); RED CELL DISTRIBUTION WIDTH 18.5 % (11.6-13.7); WHITE BLOOD COUNT (AUTO) 10.6 K/uL (4.8-10.8)
[2020-12-20 06:23] LABS: ANION GAP 4.9 (8-16); CARBON DIOXIDE 38.8 mmol/L (21-32); CREATININE 1.3 mg/dL (0.6-1.3); POTASSIUM 3.7 mmol/L (3.5-5.1)
[2020-12-20 07:08] LABS: EOSINOPHILS % (AUTO) 9.9 % (0.0-4.0); LYMPHOCYTES % (AUTO) 9.3 % (20.5-51.1)
--- NOTE | 2020-12-20 08:00 | NUR ---
BEDSIDE REPORT FROM ACCOUNT MANAGER SALES REPRESENTATIVE RN. BED RESTING IN BED. SEDATED AND INTUBATED. RASS-3, DRY WEIGHT 83KG. PATIENT ON VENT 75FIO2/30RR/12PEEP. RIGHT PICC LINE, MORPHINE 1MG, PROPOFOL 15MCG, AND IVF 100CC, RUNNING. OGT IN PLACE, PATENT, RESIDUAL 140CC, TOLERATING FEEDING. MARION CATHETER IN PLACE, PATENT, AND DRAINING WELL. RECTAL TUBE IN PLACE. CHG BATH COMPLETED WELL ORAL CARE. REPOSITIONED PATIENT. BED IN LOW POSITION, ALL SAFETY CORE MEASURES IN PLACE.
[2020-12-20] MEDS: LACTULOSE 20 GM/30 ML UDC PO SCH (08:31)
[2020-12-20] MEDS: POLYETHYLENE GLYCOL 17 GM/PKT NG SCH ×2 (08:31→20:13)
[2020-12-20] MEDS: ZINC SULF 220 MG CAP PO SCH (08:33)
[2020-12-20] MEDS: FAMOTIDINE 20 MG/2 ML VIAL IV SCH ×2 (08:33→20:13)
[2020-12-20] MEDS: ASCORBIC ACID 500 MG TAB PO SCH (08:33)
[2020-12-20] MEDS: SENNA 8.6 MG TAB NG SCH (08:33)
[2020-12-20] MEDS: bisacodyL 10 MG SUPP RC SCH (08:34)
[2020-12-20] MEDS: DOCUSATE 100 MG/10 ML UDC GT SCH (08:34)
--- NOTE | 2020-12-20 09:00 | NUR ---
AM MEDICATIONS ADMINISTERED ORDERED. PATIENT TOLERATED WELL.
--- NOTE | 2020-12-20 10:30 | NUR ---
SPOKE TO PATIENTS SISTER (NAM) AND UPDATED PATIENTS STATUS.
--- NOTE | 2020-12-20 10:45 | NUR ---
(12/20/20) RD FOLLOW UP COMPLETED PLEASE REFER TO NUTRITION PROGRESS NOTE UNDER CARE ACTIVITY FOR ESTIMATED NUTRITION NEEDS. RD RECOMMENDATIONS: 1. CONTINUE NEPRO 1.2 @ 40 ML/HR X 24 HOURS WITH PROSOURCE BID ; FLUSH 400 ML Q4H (2400 ML). THIS PROVIDES 960 ML OF VOLUME, 1848 KCAL, AND 107 GM OF PROTEIN, MEETING >90% OF ESTIMATED KCAL AND PROTEIN NEEDS. F/U 2-3 DAYS; HIGH RISK ELMO NOBLE MS, RDN
--- NOTE | 2020-12-20 12:00 | NUR ---
RESIDUAL >500CC. HELD FEEDING WILL RECHECK IN 2 HRS. ORAL CARE AND SUCTION COMPLETED. PER DR. KUSHAL GREEN TO DC LAXATIVES. PT HAVING WATERY STOOL.
--- NOTE | 2020-12-20 14:00 | NUR ---
RESIDUAL 250CC, CONTINUE TO HOLD FEEDING WILL CONTINUE TO MONITOR.
--- NOTE | 2020-12-20 16:30 | NUR ---
TRANSPORTED PT WITH RT FOR CT SCAN OF HEAD. PATIENT TOLERATED WELL.
--- NOTE | 2020-12-20 19:17 | NUR ---
BEDSIDE REPORT GIVEN TO HOOP BENDER TANK NURSE FOR CONTINUITY OF CARE.
--- NOTE | 2020-12-20 19:20 | NUR ---
RECIEVED ENDORSEMENT FROM DAY SHIFT RN, PT LYING SUPINE W/HOB 30 DEGREES AND BED LOW, SEDATED RASS -3, SR ON MONITOR, PERIPHERAL PULES PALPABLE, ETT TO VENT ACPC FIO2 75% RATE 16 PEEP 12, ABD SOFT AND NON TENDER TO TOUCH, SKIN WARM AND DRY, PT AFEBRILE, GRAHAM PICC INFUSING HALF NS, PROPOFOL AND MORPHINE, FC IN PLACE DRAINING VIA GRAVITY, RECTAL TUBE IN PLACE DRAINING VIA GRAVITY, SKIN NON INTACT W/ R KNEE DTI, OGT TO FEEDING CLAMPED D/T HIGH RESIDUAL, PT SHOWING NO SIGNS OF ACUTE DISTRESS, SAFETY MEASURES IN PLACE, WILL CONTINUE WITH CURRENT POC
[2020-12-20] MEDS: MORPHINE SULFATE 50 MG in NACL 0.9% 45 ML IV PRN (21:11)
[2020-12-21] VITALS (31 sets, daily range): BP systolic 94–127; BP diastolic 41–71
[2020-12-21] MEDS: PROPOFOL 1000 MG/100 ML PREMIX 100 ML IV PRN ×3 (00:09→20:31)
[2020-12-21] MEDS: NACL 0.45% 1,000 ML IV SCH ×3 (02:56→21:59)
[2020-12-21 04:53] LABS: BASOPHILS % (AUTO) 0.3 % (0.0-2.0); EOSINOPHILS % (AUTO) 0.3 % (0.0-4.0); HEMATOCRIT 28.8 % (36-52); HEMOGLOBIN 8.9 g/dL (12.0-18.0); LYMPHOCYTES # (AUTO) 0.6 K/uL (2.0-11.5); LYMPHOCYTES % (AUTO) 4.3 % (20.5-51.1); MEAN CORPUSCULAR HEMOGLOBIN 31 pg (27-31); MEAN CORPUSCULAR HGB CONC 31 g/dL (33-37); MEAN CORPUSCULAR VOLUME 101.1 fL (80-94); MONOCYTES # (AUTO) 0.7 K/uL (0.8-1.0); MONOCYTES % (AUTO) 5.2 % (1.7-9.3); NEUTROPHILS # (AUTO) 11.8 K/uL (1.8-7.7); NEUTROPHILS % (AUTO) 89.9 % (42.2-75.2); PLATELET COUNT (AUTO) 282 K/uL (140-450); RED BLOOD CELL COUNT(AUTO) 2.85 MIL/uL (4.20-6.10); RED CELL DISTRIBUTION WIDTH 18.9 % (11.6-13.7); WHITE BLOOD COUNT (AUTO) 13.2 K/uL (4.8-10.8)
[2020-12-21 05:33] LABS: ANION GAP 5.5 (8-16); CARBON DIOXIDE 38.5 mmol/L (21-32); CREATININE 1.7 mg/dL (0.6-1.3)
--- NOTE | 2020-12-21 07:24 | NUR ---
ENDORSED TO DAY SHIFT RN FOR CONTINUITY OF CARE
--- NOTE | 2020-12-21 07:42 | NUR ---
PATIENT RECEIVED ON PROPOFOL AT 15, IVF AT 100, MORPHINE AT 1. PER REPORT, FEEDING WAS STOPPED DUE TO HIGH RESIDUAL. VITALS STABE AT THIS TIME.
[2020-12-21] MEDS: ZINC SULF 220 MG CAP PO SCH (08:38)
[2020-12-21] MEDS: POLYETHYLENE GLYCOL 17 GM/PKT NG SCH ×2 (08:38→20:27)
[2020-12-21] MEDS: FAMOTIDINE 20 MG/2 ML VIAL IV SCH ×2 (08:38→20:27)
[2020-12-21] MEDS: ASCORBIC ACID 500 MG TAB PO SCH (08:38)
--- NOTE | 2020-12-21 09:15 | NUR ---
DR. BIRMINGHAM MADE ROUNDS. UPDATED ON CURRENT PATIENT CONDITION, MEDS, LABS, VENT SETTINGS. AWARE HIGH RESIDUAL. NO NEW ORDERS AT THIS TIME.
--- NOTE | 2020-12-21 15:00 | NUR ---
PATIENT CLEANED AND BATHED. TOLERATED WITHOUT S/S DISTRESS OR SOB. REPOSITIONED.
--- NOTE | 2020-12-21 19:23 | NUR ---
PATIENT VITALS STABLE WITHOUT ANY NOTED S/S PAIN SOB OR DISTRESS. ENDORSED TO NOC RN FOR CONTINUITY OF CARE.
--- NOTE | 2020-12-21 19:46 | NUR ---
RECEIVED PATIENT IN SUPINE, ETT TO VENT WITH FIO2 65%, OG FEEDING AT 40 ML/HR, IV DRIP: PROPOFOL 20 MCG/KG/MIN, MORPHINE 2 MG/HR 1/2 NS AT 100 ML/HR VIA GRAHAM PICC LINE, MARION CATH IN PLACE AND DRAINING TO GRAVITY WITH DARK SOUTH COLOR, SINUS RHYTHM ON THE MONITOR, RECTAL TUBE IN PLACE, WILL CONTINUE TO MONITOR.
[2020-12-22] VITALS (35 sets, daily range): BP systolic 87–114; BP diastolic 38–57
--- NOTE | 2020-12-22 | NUR ---
ON GT FEEDING , RESIDUE IS AB0VE 200 , HOLD FOR 2 HOURS , WILL RESUME FEEDING AFTER 2 HR.
--- NOTE | 2020-12-22 04:00 | NUR ---
ORAL CARE AND SKIN CARE GIVEN , RESP EVEN AND UNLABORED BREATHING. GENERALIZED EDEMA 3+, RIGHT ARM SWOLLEN AND REDNESS , PICC LINE IS ON RIGHT ARM , WILL ENDORSE TO DAY SHIFT.
[2020-12-22 06:06] LABS: BASOPHILS # (AUTO) 0.1 K/uL (0.00-0.22); BASOPHILS % (AUTO) 0.7 % (0.0-2.0); EOSINOPHILS # (AUTO) 0.2 K/uL (0-0.4); EOSINOPHILS % (AUTO) 1.5 % (0.0-4.0); HEMATOCRIT 26.8 % (36-52); HEMOGLOBIN 8.5 g/dL (12.0-18.0); LYMPHOCYTES # (AUTO) 0.8 K/uL (2.0-11.5); LYMPHOCYTES % (AUTO) 6.8 % (20.5-51.1); MEAN CORPUSCULAR HEMOGLOBIN 32 pg (27-31); MEAN CORPUSCULAR HGB CONC 32 g/dL (33-37); MEAN CORPUSCULAR VOLUME 99.9 fL (80-94); MONOCYTES # (AUTO) 0.4 K/uL (0.8-1.0); MONOCYTES % (AUTO) 3.4 % (1.7-9.3); NEUTROPHILS # (AUTO) 9.6 K/uL (1.8-7.7); NEUTROPHILS % (AUTO) 87.6 % (42.2-75.2); PLATELET COUNT (AUTO) 257 K/uL (140-450); RED BLOOD CELL COUNT(AUTO) 2.68 MIL/uL (4.20-6.10); RED CELL DISTRIBUTION WIDTH 18.7 % (11.6-13.7)
[2020-12-22 06:25] LABS: ALBUMIN 1.7 g/dL (3.4-5.0); ANION GAP 10.3 (8-16); CARBON DIOXIDE 32.2 mmol/L (21-32); CREATININE 2.4 mg/dL (0.6-1.3); PHOSPHORUS 6.2 mg/dL (2.5-4.9); POTASSIUM 4.5 mmol/L (3.5-5.1); TOTAL BILIRUBIN 2.1 mg/dL (0.0-1.0)
--- NOTE | 2020-12-22 07:02 | NUR ---
RECEIVED A CALL FROM LAB REGARDING BUN 65 - CRITICAL VALUE, PAGED DR BELTRAN AND LEFT MESSAGE TO EXCHANGE.
--- NOTE | 2020-12-22 07:04 | NUR ---
ENDORSED TO COMING NURSE FOR CONTINUITY OF CARE INCLUDING CRITICAL VALUE. WAITING FOR CALL BACK.
[2020-12-22] MEDS: NACL 0.45% 1,000 ML IV SCH (07:10)
[2020-12-22] MEDS: PROPOFOL 1000 MG/100 ML PREMIX 100 ML IV PRN ×2 (07:49→18:05)
[2020-12-22] MEDS: FAMOTIDINE 20 MG/2 ML VIAL IV SCH ×2 (08:07→20:27)
[2020-12-22] MEDS: ASCORBIC ACID 500 MG TAB PO SCH (08:08)
[2020-12-22] MEDS: ZINC SULF 220 MG CAP PO SCH (08:08)
[2020-12-22] MEDS: POLYETHYLENE GLYCOL 17 GM/PKT NG SCH ×2 (08:08→20:27)
--- NOTE | 2020-12-22 08:39 | NUR ---
DR. BRITO MADE ROUNDS. MADE AWARE OF CURRENT PATIENT CONDITION. AWARE PATIENT NOT MAKING ANY URINE AND AWARE OF LABS FOR TODAY. HE ORDERED TO DC IV FLUIDS. STATED PATIENT MAY NEED DIALYSIS AND WILL SEE HOW PATIENT IS DOING TOMORROW.
--- NOTE | 2020-12-22 08:40 | NUR ---
DR. BIRMINGHAM MADE ROUNDS. UPDATED ON CURRENT PATIENT CONDITION, LABS, MEDS. MADE AWARE PATIENT RIGHT UPPER EXTREMITY RED AND SWOLLEN. PICC LINE FLUSHED AND ASPIRATED WITHOUT ANY ISSUES. AWARE PATIENT NOT MAKING ANY URINE. DR. BIRMINGHAM ORDERED FOR US RUE AND BLOOD CX PICC DRAW AND PERIPHERAL DRAW.
--- NOTE | 2020-12-22 10:27 | NUR ---
PER DR. BRITO HE ALREADY SPOKE TO PATIENT BROTHER REGARDING PLAN FOR HEMODIALYSIS. CANDY, BROTHER, CALLED AND UPDATED ON CURRENT PATIENT CONDITION. OVER THE PHONE CONSENT OBTAINED FOR HEMODIALYSIS CATHETER PLACEMENT WELL HEMODIALYSIS. PATIENT AT THIS TIME REMAINS WITHOUT ANY URINE OUTPUT. VITALS STEADY AT THIS TIME WITH SBP HOLDING IN THE 90S. BP AT THIS TIME 94/42. 93% O2 SAT ON 65% FIO2. HR NSR 90 AND RR 31. REMAINS ON PROPOFOL AT 20 AND MORPHINE AT 2. US TECH CAME AND DID US RIGHT UE. AWAITING RESULTS AT THIS TIME. WILL CONTINUE TO MONITOR AND ATTEND TO PATIENT NEEDS.
--- NOTE | 2020-12-22 11:21 | NUR ---
CALLED DR. BIRMINGHAM TO MAKE HER AWARE OF US RESULT SHOWING RIGHT CEPHALIC VEIN THROMBUS. SHE ORDERED FOR PICC LINE TO BE PLACED ON LUE AND TO START ON HEPARIN IV DRIP PER PHARMACY.
[2020-12-22] MEDS ORDERED: HEPARIN PER PHARMACY MC SCH (11:25)
--- NOTE | 2020-12-22 12:18 | NUR ---
CALLED DR. BRITO TO NOTIFY THAT DR. BIRMINGHAM ORDERED TO PLACE PICC LINE ON LEFT ARM DUE TO THROMBUS ON RIGHT. AWARE AND STATED IT IS OK TO PLACE PICC IN RIGHT ARM. HE ALSO STATED THAT HE SPOKE TO DR. COOPER AND HE WILL BE PLACING YORDY CATHETER TODAY. CALLED PICC LINE CENTER AND SPOKE TO HANS TO NOTIFY THAT THERE IS ORDER FOR PICC PLACEMENT. HE STATED HE WILL INFORM PICC LINE NURSE VIDAL.
[2020-12-22] MEDS: hePARIN / DEXT 5% PREMIX 250 ML IV SCH (12:43)
[2020-12-22 13:22] LABS: PROTHROMBIN TIME 9.9 secs (10.8-13.4)
--- NOTE | 2020-12-22 13:53 | NUR ---
DR. COOPER STOPPED BY AND STATED TO CALL DR. BRITO TO SEE IF HE COULD PLACE THE HD CATHETER AND IF NOT THEN TO LET HIM KNOW AND HE WILL DO IT LATER TODAY. DR. BRITO CALLED BY PLATE STACKER HAND AND DR. BRITO STATED HE WILL BE ABLE TO DO IT TODAY. SUPPLIES GATHERED AND READY FOR DR. BRITO AT PATIENT BEDSIDE.
--- NOTE | 2020-12-22 14:35 | NUR ---
DR. BRITO PLACED YORDY CATH TO PATIENTS RIGHT IJ. DRESSING APPLIED. THROUGHOUT BEDSIDE PROCEDURE VITALS REMAINED STABLE AND PATIENT O2 SAT 100% ON 100%. PLACED PATIENT ON 100% FIO2 DURING BEDSIDE PROCEDURE. NO S/S DISTRESS. WILL CONTINUE TO MONITOR AND ATTEND TO PATIENT NEEDS.
--- NOTE | 2020-12-22 18:10 | NUR ---
HD NURSE AT BEDSIDE. HD STARTED. LEVOPHED RESTARTED AT 1600 DUE TO SBP IN 80S.
--- NOTE | 2020-12-22 18:55 | NUR ---
PICC LINE NURSE AT BEDSIDE. PICC PLACED. CXR BEING DONE AT THIS TIME.
--- NOTE | 2020-12-22 18:59 | NUR ---
PER PICC LINE NURSE, LEFT PICC OK TO USE.
--- NOTE | 2020-12-22 19:25 | NUR ---
IV MEDS CONNECTED TO LEFT PICC. PATIENT STILL CURRENTLY ON HD. ENDORSED REPORT TO NOC SHIFT NURSE FOR CONTINUITY OF CARE. REMOVAL OF RIGHT PICC ENDORSED TO NOC RN. REPORTED TO HER NEXT PTT WILL BE DRAWN AT 2030. PATIENT REMAINS ON SEDATION AND LEVOPHED TITRATED UP TO MAINTAIN SBP 90 AND ABOVE. NO NOTED SS PAIN SOB OR DISTRESS.
--- NOTE | 2020-12-22 19:28 | NUR ---
RECEIVED PATIENT IN SUPINE POSITION, ETT TO VENT WITH FIO2 65%, SEDATED WITH MORPHINE 2 MG/HR, PROPOFOL 20 MCG/KG/MIN, HEMODIALYSIS ONGOING AT THIS TIME JERALD SCALES CATH ACCESS TO HD, HD NURSE AT BEDSIDE, ON LEVOPHED 18 MCG/MIN TO SUPPORT SBP>90, ALL IV MEDICATION GIVEN VIA ESTEPHANIA DOUBLE LUMEN PICC LINE , ON HEPARIN DRIP 1200 UNIT/HR FOR DVT AT RIGHT ARM . MARION CATH IN PLACE AND DRAINING TO GRAVITY , RECTAL TUBE IN PLACE , SINUS RHYTHM ON THE MONITOR. WILL CONTINUE TO MONITOR.
[2020-12-22] MEDS: MORPHINE SULFATE 50 MG in NACL 0.9% 45 ML IV PRN (20:29)
--- NOTE | 2020-12-22 21:12 | NUR ---
HD COMPLETED WITH 500 ML OUT, DRESSING TO RIJ BLEEDING AND CHANGED BY HD NURSE.
--- NOTE | 2020-12-22 21:42 | NUR ---
RECEIVED A CALL FROM LAB REGARDING PTT >150 STOPPED HEPARIN DRIP FOR 1HOUR AND WILL RESTART AT 950 UNIT PER PROTOCOL.
[2020-12-23] VITALS (33 sets, daily range): BP systolic 65–132; BP diastolic 36–64
--- NOTE | 2020-12-23 01:00 | NUR ---
RECEIVED A CALL FROM CANDY DAVIS, UPDATED HIM AND ANSWERED ALL QUESTION HE HAD.
--- NOTE | 2020-12-23 04:52 | NUR ---
PICC LINE AT [facility] REMOVED AT 2200 LAST NIGHT, PUT PRESSURE DRESS AT SITES , RT INCREASED FIO2 TO 80% DUE TO DESATURATED .
[2020-12-23] MEDS: PROPOFOL 1000 MG/100 ML PREMIX 100 ML IV PRN ×2 (05:26→15:48)
[2020-12-23 05:59] LABS: HEMATOCRIT 25.9 % (36-52); HEMOGLOBIN 7.9 g/dL (12.0-18.0); MEAN CORPUSCULAR HEMOGLOBIN 31 pg (27-31); MEAN CORPUSCULAR HGB CONC 31 g/dL (33-37); MEAN CORPUSCULAR VOLUME 101.5 fL (80-94); PLATELET COUNT (AUTO) 298 K/uL (140-450); RED BLOOD CELL COUNT(AUTO) 2.56 MIL/uL (4.20-6.10); RED CELL DISTRIBUTION WIDTH 19.7 % (11.6-13.7); WHITE BLOOD COUNT (AUTO) 15.5 K/uL (4.8-10.8)
[2020-12-23] MEDS: NOREPINEPHRINE 8 MG in DEXTROSE 5% 250 ML IV PRN ×4 (05:59→20:22)
[2020-12-23 06:25] LABS: ANION GAP 8.5 (8-16); CARBON DIOXIDE 32.3 mmol/L (21-32); CREATININE 2.8 mg/dL (0.6-1.3); POTASSIUM 4.8 mmol/L (3.5-5.1)
--- NOTE | 2020-12-23 06:49 | NUR ---
PTT 146 AT 0530 , HOLD FOR 1 HOUR , REDUCE 250 UNIT WHICH IS FROM 950 UNIT TO 700 UNIT , START AT 0630 - AT 700 UNIT/HOUR, ORDERED NEXT PTT AT 1230 TODAY, WILL ENDORSE TO INCOMING NURSE.
[2020-12-23 07:46] LABS: BASOPHILS % (MANUAL) 1 % (0-2); EOSINOPHILS % (MANUAL) 2 % (0-4); LYMPHOCYTES % (MANUAL) 5 % (20-46); METAMYELOCYTES % 1 % (0-0); MONOCYTES % (MANUAL) 8 % (5-12); MYELOCYTES % 1 % (0-0)
[2020-12-23] MEDS: ASCORBIC ACID 500 MG TAB PO SCH (08:25)
[2020-12-23] MEDS: ZINC SULF 220 MG CAP PO SCH (08:26)
[2020-12-23] MEDS: FAMOTIDINE 20 MG/2 ML VIAL IV SCH (08:26)
[2020-12-23] MEDS: POLYETHYLENE GLYCOL 17 GM/PKT NG SCH ×2 (08:27→20:52)
[2020-12-23] MEDS: VASOPRESSIN 20 UNITS in NACL 0.9% 250 ML IV SCH ×2 (11:02→20:17)
[2020-12-23] MEDS ORDERED: RENAL DOSING PER PHARMACY MC PRN (11:05)
--- NOTE | 2020-12-23 12:40 | NUR ---
NN - SEVERAL WOUNDS NOTED ON PATIENT. RIGHT EAR - DTI, LEFT EAR - DTI, RIGHT CHEECK JUST ABOVE ETT SECUREMENT DEVICE - STAGE 2. LEFT LOWER LEG JUST BELOW KNEE TO THE LEFT - DTI, LOWER LEFT LATERAL LEG - DTI, BUTTOCKS AND SACRAL AREA - DTI, RIGHT KNEE - DTI, AND SLIGHTLY PURPLISH TO BILATERAL BIG TOES. DRESSINGS APPLIED.
[2020-12-23] MEDS: PHENYLEPHRINE 10 MG in NACL 0.9% 250 ML IV PRN ×4 (13:24→20:27)
--- NOTE | 2020-12-23 16:12 | NUR ---
12/23/20 RD FOLLOW UP COMPLETED PLEASE REFER TO NUTRITION ASSESSMENT UNDER CARE ACTIVITY FOR ESTIMATED NUTRITIONAL NEEDS. 1. CONTINUE NEPRO 1.2 @ 40 ML/HR X 24 HOURS WITH PROSOURCE BID -THIS PROVIDES 960 ML OF VOLUME, 1848 KCAL, AND 107 GM OF PROTEIN, MEETING >90% OF ESTIMATED KCAL AND PROTEIN NEEDS. 2. FREE WATER FLUSH PER MD 3. F/U 2-3 DAYS; HIGH RISK SHAMA VALENTIN, RD
[2020-12-23] MEDS ORDERED: PHENYLEPHRINE 10 MG/ML VIAL ONE (23:29)
[2020-12-24] VITALS (32 sets, daily range): BP systolic 88–149; BP diastolic 40–78
[2020-12-24] MEDS: hePARIN / DEXT 5% PREMIX 250 ML IV SCH (00:29)
[2020-12-24] MEDS: NOREPINEPHRINE 8 MG in DEXTROSE 5% 250 ML IV PRN ×3 (00:32→09:46)
[2020-12-24] MEDS ORDERED: PHENYLEPHRINE 10 MG/ML VIAL ONE (03:08)
[2020-12-24] MEDS ORDERED: MORPHINE SULFATE 10 MG/ML VIAL ONE (03:25)
[2020-12-24] MEDS: PROPOFOL 1000 MG/100 ML PREMIX 100 ML IV PRN ×2 (03:46→12:16)
[2020-12-24 06:22] LABS: BASOPHILS # (AUTO) 0.2 K/uL (0.00-0.22); BASOPHILS % (AUTO) 1.2 % (0.0-2.0); EOSINOPHILS # (AUTO) 0.2 K/uL (0-0.4); EOSINOPHILS % (AUTO) 1.3 % (0.0-4.0); HEMATOCRIT 23.4 % (36-52); HEMOGLOBIN 7.4 g/dL (12.0-18.0); LYMPHOCYTES # (AUTO) 1.6 K/uL (2.0-11.5); LYMPHOCYTES % (AUTO) 10.7 % (20.5-51.1); MEAN CORPUSCULAR HEMOGLOBIN 31 pg (27-31); MEAN CORPUSCULAR HGB CONC 32 g/dL (33-37); MEAN CORPUSCULAR VOLUME 98.5 fL (80-94); NEUTROPHILS # (AUTO) 11.9 K/uL (1.8-7.7); NEUTROPHILS % (AUTO) 79.8 % (42.2-75.2); PLATELET COUNT (AUTO) 296 K/uL (140-450); RED BLOOD CELL COUNT(AUTO) 2.38 MIL/uL (4.20-6.10); RED CELL DISTRIBUTION WIDTH 18.8 % (11.6-13.7); WHITE BLOOD COUNT (AUTO) 14.9 K/uL (4.8-10.8)
[2020-12-24 07:03] LABS: ALBUMIN 1.7 g/dL (3.4-5.0); ANION GAP 9.7 (8-16); ASPARTATE AMINOTRANSFERASE 38 U/L (15-37); CARBON DIOXIDE 29.7 mmol/L (21-32); CHLORIDE 100 mmol/L (98-107); CREATININE 3.6 mg/dL (0.6-1.3); GFR ARICAN-AMERICAN 22 mL/min (>90); GLUCOSE 169 mg/dL (74-106); LACTATE DEHYDROGENASE 276 U/L (85-227); MAGNESIUM 1.9 mg/dL (1.8-2.4); PHOSPHORUS 6.3 mg/dL (2.5-4.9); POTASSIUM 4.4 mmol/L (3.5-5.1); SODIUM SERUM 135 mmol/L (136-145)
[2020-12-24 07:24] LABS: UREA NITROGEN, BLOOD 68 mg/dL (7-18)
[2020-12-24] MEDS: POLYETHYLENE GLYCOL 17 GM/PKT NG SCH ×2 (08:05→21:32)
[2020-12-24] MEDS: FAMOTIDINE 20 MG/2 ML VIAL IV SCH (08:05)
[2020-12-24] MEDS: ZINC SULF 220 MG CAP PO SCH (08:06)
[2020-12-24] MEDS: ASCORBIC ACID 500 MG TAB PO SCH (08:07)
--- NOTE | 2020-12-24 09:05 | NUR ---
REPORTED ABG RESULTS TO DR MURILLO, NO CHANGES. ORDERED REPEAT ABG 8AM TOMORROW.
[2020-12-24] MEDS ORDERED: SODIUM BICARBONATE 8.4% PFS 50 MEQ/50 ML SYR IVP SCH (09:30)
[2020-12-24] MEDS: VASOPRESSIN 20 UNITS in NACL 0.9% 250 ML IV SCH (12:16)
--- NOTE | 2020-12-24 12:20 | NUR ---
NN - CHECKED RESIDUAL ON OG TUBE AND PULLED BACK 300ML, REPLACED 150ML. WHILE PULLING RESIDUAL, NOTICED DARK RED BLOOD NEAR THE END OF THE RESIDUAL AMOUNT. HELD HEPARIN AND CALLED DR. SIMMONS TO NOTIFY HIM. RECEIVED ORDERS AND ENTERED THEM. DIETITIAN AWARE.
--- NOTE | 2020-12-24 16:00 | NUR ---
NN - RESIDUAL IN OG CHECKED AND REMAINED THE SAME, CONTINUING TO HOLD TUBE FEEDING.
[2020-12-24] MEDS: NOREPINEPHRINE 16 MG in DEXTROSE 5% 250 ML IV PRN ×2 (17:04→23:38)
[2020-12-24 20:36] LABS: HEMATOCRIT 22.4 % (36-52)
[2020-12-24] MEDS ORDERED: VASOPRESSIN 20 UNITS/ML VIAL ONE (23:34)
[2020-12-25] VITALS (33 sets, daily range): BP systolic 79–123; BP diastolic 39–56
[2020-12-25] MEDS: PROPOFOL 1000 MG/100 ML PREMIX 100 ML IV PRN ×3 (02:57→22:59)
[2020-12-25 06:16] LABS: BASOPHILS # (AUTO) 0.1 K/uL (0.00-0.22); BASOPHILS % (AUTO) 0.6 % (0.0-2.0); EOSINOPHILS # (AUTO) 0.2 K/uL (0-0.4); EOSINOPHILS % (AUTO) 1.1 % (0.0-4.0); HEMATOCRIT 22.2 % (36-52); HEMOGLOBIN 7.1 g/dL (12.0-18.0); LYMPHOCYTES # (AUTO) 0.9 K/uL (2.0-11.5); LYMPHOCYTES % (AUTO) 5.1 % (20.5-51.1); MEAN CORPUSCULAR HEMOGLOBIN 31 pg (27-31); MEAN CORPUSCULAR HGB CONC 32 g/dL (33-37); MEAN CORPUSCULAR VOLUME 97.3 fL (80-94); MONOCYTES % (AUTO) 5.9 % (1.7-9.3); NEUTROPHILS % (AUTO) 87.3 % (42.2-75.2); PLATELET COUNT (AUTO) 252 K/uL (140-450); RED BLOOD CELL COUNT(AUTO) 2.29 MIL/uL (4.20-6.10); RED CELL DISTRIBUTION WIDTH 18.5 % (11.6-13.7); WHITE BLOOD COUNT (AUTO) 17.1 K/uL (4.8-10.8)
[2020-12-25 06:20] LABS: ANION GAP 12.3 (8-16); CARBON DIOXIDE 26.7 mmol/L (21-32); CREATININE 3.4 mg/dL (0.6-1.3)
[2020-12-25] MEDS: FAMOTIDINE 20 MG/2 ML VIAL IV SCH (08:02)
[2020-12-25] MEDS: ZINC SULF 220 MG CAP PO SCH (08:02)
[2020-12-25] MEDS: POLYETHYLENE GLYCOL 17 GM/PKT NG SCH ×2 (08:03→20:48)
[2020-12-25] MEDS: ASCORBIC ACID 500 MG TAB PO SCH (08:03)
--- NOTE | 2020-12-25 08:05 | NUR ---
NN - HELD AM HEPARIN DUE TO BLEEDING FROM OG TUBE AND PINK TINGED SPUTUM. MD AWARE
[2020-12-25] MEDS: MORPHINE SULFATE 50 MG in NACL 0.9% 45 ML IV PRN (08:43)
[2020-12-25] MEDS: NOREPINEPHRINE 16 MG in DEXTROSE 5% 250 ML IV PRN ×2 (08:47→18:16)
[2020-12-25] MEDS: PHENYLEPHRINE 10 MG in NACL 0.9% 250 ML IV PRN (08:48)
[2020-12-25] MEDS: VASOPRESSIN 20 UNITS in NACL 0.9% 250 ML IV SCH ×2 (09:02→18:15)
--- NOTE | 2020-12-25 12:00 | NUR ---
NN - PATIENT'S TEMP WAS 96.5. BLANKET WARMER PLACED ON PATIENT.
--- NOTE | 2020-12-25 13:00 | NUR ---
NN - SPOKE WITH SON CANDY. HE STATED THAT HE FELT PATIENT WAS GOING TO GET BETTER AND THAT DR. BRITO HAD CALLED HIM YESTERDAY. UPDATED HIM WITH PATIENT'S CURRENT CONDITION. HE ASKED FOR PRIMARY PHYSICIAN TO CALL HIM. DR. SIMMONS NOTIFIED.
--- NOTE | 2020-12-25 15:30 | NUR ---
NN - WOUND CARE CAME FOR CONSULT AND WE TOOK PICTURES OF ALL THE WOUNDS. RIGHT EAR - DTI, LEFT EAR - DTI, LEFT CHEECK ABOVE ETT SECUREMENT DEVICE - STAGE 2, LEFT LOWER LEG JUST BELOW THE KNEE LATERALLY - DTI, LEFT LOWER LEG [place] AREA LATERAL - DTI, SACRAL AND BUTTOCKS AREA - BLISTER AND DTI, RIGHT ANTERIOR KNEE - DTI, BILATERAL TOES PURPLISH BLANCHABLE. DRESSINGS WERE PLACED ACCORDING TO WOUND CARE RECOMMENDATION AND ALL DRESSING WERE DATED AND INITIALED. PATIENT WAS CLEANED AND LINEN CHANGED.
--- NOTE | 2020-12-25 16:30 | NUR ---
WOUND CARE EVALUATION NOTE: SKIN ASSESSMENT DONE DUE TO ALON, JONI SCALE AT VERY HIGH RISK, PT ADMITTED WITH COVID POSITIVE, ACUTE HYPOXEMIC RESP FAILURE, AND SEPSIS. PT. IS INTUBATED, ON VENT SEDATED AND RECENT RUE DVT. PLAN FOR trach however patient is ON high amount of PEEP and FiO2,not stable for procedure. ABOVE INFORMATION OBTAIN FROM H&P. AND PRIMARY RN. PER PRIMARY RN SHE HAS NOTICED ALTER SKIN FAILURE , AREAS OFFLOADING AND FOAM DRESSING APPLIED, TODAY SHE REQUEST FOR WOUND CONSULT. SKIN ASSESSMENT DONE WITH PRIMARY RN, PHOTO TAKEN WITH EXCEPT CHEEKS AND LIPS WHERE ETT ARGUETA IN PLACE. POC DISCUSSED WITH PRIMARY RN. WILL REMOVE ETT ARGUETA WHEN RT IS AVAILABLE FOR PHOTO. COMORBIDITIES RELATED TO DELAY WOUND HEALING, FURTHER SKIN BREAKS INFECTION, HYPOXEMIC DECREASE TISSUE PERFUSION, EDEMA TO EXTREMITIES, DECREASE MOBILITY AND FUNCTIONAL ABILITIES AND HOB ELEVATED THE MAJORITY OF TIMES DUE TO MEDICAL REASONS. COVID RELATED SKIN FAILURE DUE TO TISSUE LESS TOLERATE TO PRESSURE, SHERING AND POSSIBLE ASSOCIATED WITH MICROVASCULAR INJURY. PT. WAS ON VASOPRESSION, HEPARIN INTEGUMENTARY: -LEFT EAR MULTIPLE DRY PIN POINT SCABS -RIGHT EAR DTI WITH DENUDED SKIN 0.5X3CM DARK PURPLE -LEFT CHEEK DRY BROWN SCAB -RUE SLIGHTLY RED, +1 EDEMA, NO OPEN WOUND,RECENT DVT -COVID RELATED SKIN FAILURE DTI TO RIGHT BUTTOCK 4X8CM 100% MAROON MATHEW-WOUND SKIN PURPLE COLOR - COVID RELATED SKIN FAILURE LEFT BUTTOCK 3X8CM, 100% MAROON MATHEW-WOUND SKIN PURPLE COLOR - COVID RELATED SKIN FAILURE DTI SACRALCOCCYX 100% MAROON 3X8 CM, MATHEW-WOUND SKIN PURPLE COLOR MERGE WITH RIGHT AND LEFT BUTTOCKS MATHEW WOUND SKIN AND INDICATED FURTHER DAMAGE. -MAD TO MATHEW-ANAL SKIN MOIST AND 2X3CM EROSION, AREA MOIST -DTI RIGHT KNEE BLOOD FILLED INTACT BLISTER DTI 100% MAROON 2X3 CM MATHEW WOUND SKIN INTACT -COVID TOE RIGHT HALLUX 0.5X1.5CM HYPOXIA PURPLE COLOR, SKIN INTACT -POSSIBLE WIND UP OPERATOR RELATED SKIN FAILURE FROM TUBING TO LEFT LATERAL KNEE 0.5X1.5X0.1CM WOUND BED 100% BROWN COLOR, DRY, NO ODOR, MATHEW WOUND SKIN INTACT -POSSIBLE WIND UP OPERATOR RELATED SKIN FAILURE FROM TUBING TO LEFT LOWER LEG 0.5X2CM NONBLANCHABLE REDNESS SKIN INTACT -COVID TOE LEFT HALLUX 0.5X1CM HYPOXIA PURPLE COLOR, SKIN INTACT RECOMMENDATIONS -PAINT RIGHT AND LEFT EAR WITH WOUNDS WITH BETADINE SOLUTION BID, WAIVER ANALYST AND OFFLOADING -APPLY VERSATEL DRESSING TO CHEEKS, RIGHT KNEE CHANGE Q5D AND PRN IF SOILING, OFFLOADING AT ALL TIMES -APPLY FOAM DRESSING TO SACRALCOCCYX, RIGHT AND LEFT BUTTOCKS QD AND PRN IF SOILING, OFFLOADING AT ALL TIMES -CLEANSE LEFT KNEE WOUND WITH NS, PAT DRY , APPLY HYDROCOLLOID DRESSING AND CHANGE Q3D AND PRN IF SOILING -APPLY Z GUARD TO MATHEW-ANAL MAD BID AND PRN IF SOILING -TURN AND REPOSITION PATIENT Q 2H -ASSESS AND MONITOR SKIN CONDITION DURING POSITION CHANGE -OFFLOAD BILATERAL HEELS BY PLACING PILLOWS UNDER CALVES AT ALL TIMES, UNLESS OTHERWISE CONTRAINDICATED -PRESSURE REDISTRIBUTION SURFACE AND OFFLOADING HIPS AND SACRALCOCCYX -KEEP SKIN CLEAN AND DRY AT ALL TIMES. Addendum: 12/25/20 at 1713 by Willian Haines RN (Grace) SPOKE TO CANDY DALEY,INFORM ALON TO SKIN AND EXPLAIN RISK FACTORS AND COMORBIDITIES, ALL QUESTION ANSWERED.
--- NOTE | 2020-12-25 19:24 | NUR ---
NN - REPORT GIVEN TO NOC RN. PATIENT IN NO ACUTE DISTRESS AT THIS TIME. ALL SKIN WOUNDS PHOTOGRAPHED AND LOW FLOW BED ORDERED BY AUTOMATIC SPINNING LATHE OPERATOR IS PENDING DELIVERY. ENDORSED THIS TO NOC SHIFT RN. ALSO ENDORSED TO PLEASE CHANGE OR PENDING IV TUBING.
--- NOTE | 2020-12-25 19:24 | NUR ---
REPORT RECEIVED FROM AM SHIFT RN FOR CONTINUITY OF CARE. PT ETT TO VENT. SEDATED, RASS -3. AC/PC MODE FIO2 100%, RATE 30, PEEP 12. SINUS RHYTHM ON MONITOR. IV SITE ESTEPHANIA PICC LINE INFUSING PROPOFOL 20 MCG/KG/MIN, MORPHINE 2MG/HR, LEVOPHED 30MCG/MIN, VASOPRESSIN 0.04UNITS/HR, NEOSYNEPHRINE 10MCG/MIN, D5NS 50ML/HR. [facility] CATHETER, INTACT, PATENT, SALINE LOCKED. OGT IN PLACE. MARION CATHETER IN PLACE. SKIN NON INTACT, SEE WOUND ASSESSMENT. SAFETY PRECAUTIONS IN PLACE. HOB 30 DEGREES. BED LOCKED IN LOWEST POSITION. WILL CONTINUE TO MONITOR. Addendum: 12/25/20 at 2243 by Bruce Peres RN DRY WEIGHT 83 KG
--- NOTE | 2020-12-25 19:30 | NUR ---
RECEIVED CALL FROM COMPANY REGARDING WOUND BED. STATED WILL DELIVER AT APPROX 11AM TOMORROW DUE TO BACKED UP DELIVERIES.
[2020-12-25] MEDS: DEXT 5% / NACL 0.9% 500 ML IV SCH (19:41)
--- NOTE | 2020-12-25 22:44 | NUR ---
PT SEDATED, RASS -3. LABORED BREATHING NOTED. CHEST RISE IS SYMMETRICAL. WILL CONTINUE TO MONITOR.
--- NOTE | 2020-12-25 23:57 | NUR ---
RECEIVED CALL FROM CANDY RAM'S FAMILY. UPDATED ON PT STATUS. ALL QUESTIONS AND CONCERNS ANSWERED AT THIS TIME.
[2020-12-26] VITALS (31 sets, daily range): BP systolic 89–135; BP diastolic 41–84
[2020-12-26] MEDS: Z-GUARD PASTE TP SCH ×2 (01:09→13:00)
--- NOTE | 2020-12-26 01:20 | NUR ---
PT SEDATED, ETT TO VENT. RESPIRATIONS EVEN AND UNLABORED. CHEST RISE IS SYMMETRICAL. WILL CONTINUE TO MONITOR.
--- NOTE | 2020-12-26 03:45 | NUR ---
PT CLEANED, REPOSITIONED, ORAL CARE, AND MARION CARE PROVIDED. SAFETY PRECAUTIONS IN PLACE. WILL CONTINUE TO MONITOR.
[2020-12-26] MEDS: VASOPRESSIN 20 UNITS in NACL 0.9% 250 ML IV SCH ×3 (04:23→22:15)
[2020-12-26] MEDS: DEXT 5% / NACL 0.9% 500 ML IV SCH ×2 (05:25→14:31)
--- NOTE | 2020-12-26 05:35 | NUR ---
PT SEDATED, ETT TO VENT. RESPIRATIONS EVEN AND UNLABORED. CHEST RISE IS SYMMETRICAL. WILL CONTINUE TO MONITOR.
[2020-12-26 06:29] LABS: ANION GAP 13.7 (8-16); CARBON DIOXIDE 25.6 mmol/L (21-32); POTASSIUM 5.3 mmol/L (3.5-5.1)
[2020-12-26 06:38] LABS: CREATININE 4.4 mg/dL (0.6-1.3)
[2020-12-26] MEDS: MORPHINE SULFATE 50 MG in NACL 0.9% 45 ML IV PRN ×3 (07:02→18:58)
--- NOTE | 2020-12-26 07:20 | NUR ---
REPORT GIVEN TO AM SHIFT RN FOR CONTINUITY OF CARE
[2020-12-26 08:38] LABS: BASOPHILS % (AUTO) 0.4 % (0.0-2.0); EOSINOPHILS % (AUTO) 0.3 % (0.0-4.0); HEMATOCRIT 20.1 % (36-52); LYMPHOCYTES # (AUTO) 0.9 K/uL (2.0-11.5); LYMPHOCYTES % (AUTO) 7.4 % (20.5-51.1); MEAN CORPUSCULAR HEMOGLOBIN 31 pg (27-31); MEAN CORPUSCULAR HGB CONC 32 g/dL (33-37); MEAN CORPUSCULAR VOLUME 97.9 fL (80-94); MONOCYTES # (AUTO) 0.9 K/uL (0.8-1.0); MONOCYTES % (AUTO) 7.4 % (1.7-9.3); NEUTROPHILS % (AUTO) 84.5 % (42.2-75.2); PLATELET COUNT (AUTO) 200 K/uL (140-450); RED BLOOD CELL COUNT(AUTO) 2.06 MIL/uL (4.20-6.10); RED CELL DISTRIBUTION WIDTH 18.6 % (11.6-13.7); WHITE BLOOD COUNT (AUTO) 11.9 K/uL (4.8-10.8)
[2020-12-26] MEDS: PROPOFOL 1000 MG/100 ML PREMIX 100 ML IV PRN ×4 (09:11→23:52)
[2020-12-26 09:30] LABS: HEMOGLOBIN 6.4 g/dL (12.0-18.0)
[2020-12-26] MEDS: POLYETHYLENE GLYCOL 17 GM/PKT NG SCH ×2 (09:38→20:44)
[2020-12-26] MEDS: ZINC SULF 220 MG CAP PO SCH (09:38)
[2020-12-26] MEDS: FAMOTIDINE 20 MG/2 ML VIAL IV SCH (09:38)
[2020-12-26] MEDS: ASCORBIC ACID 500 MG TAB PO SCH (09:38)
[2020-12-26] MEDS: PHENYLEPHRINE 40 MG in NACL 0.9% 250 ML IV PRN ×3 (10:38→22:16)
[2020-12-26] MEDS: GAUZE TP SCH (13:00)
[2020-12-26] MEDS: FOAM DRESSING TP SCH (13:00)
--- NOTE | 2020-12-26 13:30 | NUR ---
TRANSFUSION OF ONE UNIT OF PRBC PER ORDER, VERIFIED WITH 2 RNS, TO BE GIVEN DURING DIALYSIS BY DIALYSIS NURSE
--- NOTE | 2020-12-26 13:45 | NUR ---
12/26/20 RD FOLLOW UP COMPLETED PLEASE REFER TO NUTRITION PROGRESS NOTE UNDER CARE ACTIVITY FOR ESTIMATED NUTRITION NEEDS. RD RECOMMENDATIONS: 1. WHEN MEDICALLY APPROPRIATE, CONSIDER NEPRO @ 45 ML/HR X 24 HOURS WITH PROSOURCE BID -THIS PROVIDES 1080 ML OF VOLUME, 1944 KCAL, AND 107 GM OF PROTEIN, MEETING >90% OF ESTIMATED KCAL AND PROTEIN NEEDS. 2. FREE WATER FLUSH PER MD 3. IF PT IS UNABLE TO RESUME TUBE FEEDING, CONSIDER TPN/PPN PER MD/PHARMACIST. 4. CONTINUE VITAMIN C AND ZINC SULFATE TO PROMOTE WOUND HEALING. 5. F/U 2-3 DAYS; HIGH RISK JACKIE REYES, RD
[2020-12-26] MEDS: NOREPINEPHRINE 16 MG in DEXTROSE 5% 250 ML IV PRN (17:48)
--- NOTE | 2020-12-26 18:27 | NUR ---
Received patient on full ventilator support with FIO2 of 85%, progressed throughout the shift to FIO2 100%; his doctors have visited and pointed out patient's condition not improving. Dialysis done today, tolerated with vasopressors support. Received one bag of PRBC for low hemoglobin/hematocrit. Family/sister updated of patient's condition, questions/concerns addressed, any other further questions encouraged sister to ask patient's MDs. Not a candidate for sedation vacation nor spontaneous breathing trial due to his current critical state. Addendum: 12/26/20 at 1830 by Agency 04 SOCORRO QUINTANILLA Amended: Links added.
--- NOTE | 2020-12-26 19:45 | NUR ---
AFTER SPEAKING WITH DR MACKEY ON THE PHONE REGARDING PT SATURATION AND LOW TITLE VOLUME, INCREASED PRESSURE CONTROL TO 30, IN ORDER TO ACHIEVE TIDAL VOLUMES ABOVE 300. PT SATURATION HAS INCREASED AND PEAK PRESSURES REMAIN UNDER 45, WILL CONTINUE TO MONITOR
--- NOTE | 2020-12-26 20:00 | NUR ---
RECEIVED PT SEDATED WITH PROPOL.HE IS ORALLY INTUBATED AND CONNECTED TO VET AT ORDERED SETTING. PT O2 SATURATION IS 83% WITH THE FIO2 OF 100%. DR COE IS CALLED WITH ORDERS TO THE RT. HE IS AND CX IN AM. HEIS ON PRESSURES TO KEEP HIS SBP 92%. V/S ARE WNL.
[2020-12-26] MEDS: SODIUM BICARBONATE 650 MG TAB PO SCH (20:43)
--- NOTE | 2020-12-26 22:00 | NUR ---
.PT,O2 SAT Is 92% AT THIS TIME.no change in condition noticed.
[2020-12-26] MEDS ORDERED: PHENYLEPHRINE 10 MG/ML VIAL ONE (22:13)
[2020-12-27] VITALS (40 sets, daily range): BP systolic 76–139; BP diastolic 34–84
[2020-12-27] MEDS: Z-GUARD PASTE TP SCH ×2 (01:17→13:59)
[2020-12-27] MEDS: DEXT 5% / NACL 0.9% 500 ML IV SCH ×2 (04:46→12:22)
[2020-12-27 06:01] LABS: BASOPHILS % (AUTO) 0.4 % (0.0-2.0); EOSINOPHILS % (AUTO) 0.1 % (0.0-4.0); HEMATOCRIT 23.7 % (36-52); HEMOGLOBIN 7.7 g/dL (12.0-18.0); LYMPHOCYTES # (AUTO) 0.6 K/uL (2.0-11.5); LYMPHOCYTES % (AUTO) 4.4 % (20.5-51.1); MEAN CORPUSCULAR HEMOGLOBIN 32 pg (27-31); MEAN CORPUSCULAR HGB CONC 33 g/dL (33-37); MEAN CORPUSCULAR VOLUME 97.5 fL (80-94); MONOCYTES # (AUTO) 0.4 K/uL (0.8-1.0); NEUTROPHILS % (AUTO) 92.1 % (42.2-75.2); PLATELET COUNT (AUTO) 152 K/uL (140-450); RED BLOOD CELL COUNT(AUTO) 2.43 MIL/uL (4.20-6.10); RED CELL DISTRIBUTION WIDTH 17.2 % (11.6-13.7)
[2020-12-27 06:12] LABS: ANION GAP 17.4 (8-16); CARBON DIOXIDE 22.1 mmol/L (21-32); CREATININE 3.6 mg/dL (0.6-1.3); POTASSIUM 4.5 mmol/L (3.5-5.1)
[2020-12-27] MEDS ORDERED: VASOPRESSIN 20 UNITS/ML VIAL ONE (06:25)
[2020-12-27] MEDS: VASOPRESSIN 20 UNITS in NACL 0.9% 250 ML IV SCH ×2 (07:07→16:16)
[2020-12-27] MEDS: PROPOFOL 1000 MG/100 ML PREMIX 100 ML IV PRN (07:09)
--- NOTE | 2020-12-27 07:30 | NUR ---
DR. HILL SEEING PT
--- NOTE | 2020-12-27 07:48 | NUR ---
RECEIVED ON A [employer]APE R860 VENTILATOR PLUGGED INTO RED OUTLET TOLERATING WELL WITHOUT ADVERSE REACTIONS NOTED TO AN ENDOTRACHEAL TUBE #7.5 SECURED AT 23cm TEETH/GUM LINE WITH AN ANCHOR FAST CUFF PRESSURE CHECKED NOTED AMBU BAG AT BEDSIDE LOC SEDATED RESTING WELL GOOD CHEST RISE AIRWAY PATENT DR. RO HILL ROUNDING AT THIS TIME FOREMENTIONED MD REQUESTING ABG THEN CALL WITH RESULTS
--- NOTE | 2020-12-27 07:49 | NUR ---
RECEIVED HANDOFF FROM CONFIGURATION MANAGEMENT ADMINISTRATOR RN. PT IS SEDATED RASS -3. PT IS ETT TO VENT ACPC MODE WITH FIO2 100%, R 30, PEEP 12. PT HAS OG TUBE BUT PER CONFIGURATION MANAGEMENT ADMINISTRATOR FEEDING WAS HELD DUE TO HIGH RESIDUAL. PT IS SR ON THE MONITOR AT THIS TIME. FOR ACCESS PT HAS ESTEPHANIA PICC LINE AND RIJ YORDY HD CATHETER. LEVOPHED IS RUNNING AT 22 MCG/MIN, MORPHINE AT 2 MG/HR, PROPOFOL AT 30 MCG/KG/MIN, NEOSYNEPHRINE AT 50 MCG/MIN, D5NS AT 50 ML/HR, VASOPRESSIN AT 0.04 UN/MIN. MARION CATHETER AND RECTAL TUBE ARE INI PLACE. HOB IS 30 DEG WITH BED IN LOW, LOCKED POSITION. WILL CONTINUE TO MONITOR.
--- NOTE | 2020-12-27 08:09 | NUR ---
PAGED DR. RO HILL [phone] TO REVIEW [facility] SAMPLE REPORT CALL BACK NUMBER [phone]
--- NOTE | 2020-12-27 08:11 | NUR ---
CALL BACK FROM DR. RO HILL REVIEWED ABG SAMPLE REPORT NEW ORDER: INCREASE INSP PRESSURE TO ACHIEVE EXP Vt 350ml TO 400ml WITH GOOD INSP/EXP RATIO; ABG 2 HOURS AFTER VENTILATOR CHANGE
[2020-12-27] MEDS: FAMOTIDINE 20 MG/2 ML VIAL IV SCH (08:17)
[2020-12-27] MEDS: PANTOPRAZOLE 40 MG INJ VIAL IVP SCH (08:17)
[2020-12-27] MEDS: ASCORBIC ACID 500 MG TAB PO SCH (08:18)
[2020-12-27] MEDS: POLYETHYLENE GLYCOL 17 GM/PKT NG SCH ×2 (08:18→20:47)
[2020-12-27] MEDS: SODIUM BICARBONATE 650 MG TAB PO SCH ×2 (08:18→20:46)
[2020-12-27] MEDS: ZINC SULF 220 MG CAP PO SCH (08:19)
--- NOTE | 2020-12-27 08:30 | NUR ---
PHONE CALL MADE TO DR LAEK TO REVIEW HEPARIN DRIP ORDER FOR DVT (R CEPHALIC VEIN), CONTINUE TO HOLD HEPARIN DRIP PER DR LAKE DUE TO DARK OGT RESIDUAL, STOOL OCCULT BLOOD ORDERED.
--- NOTE | 2020-12-27 09:08 | NUR ---
NOTED AT 0811 INCREASED INSP PRESSURE TO [id number] TO MAINTAIN Vt 350ml TO 400ml; DECREASED PEEP TO MAINTAIN PEAK PRESSURE LESS THAN 50 cmH2O BEAUTY ADVISOR TO MONITOR AND ADJUST VENTILATOR SETTINGS NEEDED CLIFTON/RN NOTIFIED
--- NOTE | 2020-12-27 09:16 | NUR ---
MEDICATIONS ADMINISTERED PER ORDER. STILL 210 ML BLACKISH BROWN RESIDUAL FROM TUBE FEED. FEEDING REMAINS TO BE HELD. PT REPOSITIONED. VAP ORAL CARE, CHG BATH, AND MARION CARE PROVIDED. TEMPERATURE 83.5 TEMPORALLY, TK HUGGER PLACED ON PT AND TURNED ON. OCCULT BLOOD SAMPLE COLLECTED AND WALKED TO LAB
[2020-12-27] MEDS: NOREPINEPHRINE 16 MG in DEXTROSE 5% 250 ML IV PRN ×2 (09:25→21:47)
--- NOTE | 2020-12-27 11:22 | NUR ---
OCCULT BLOOD RESULT NEGATIVE, BUT STILL HOLDING FEED DUE TO BLACK RESIDUAL [address] LAKE.
--- NOTE | 2020-12-27 11:47 | NUR ---
SEDATED GOOD CHEST RISE AIRWAY PATENT
--- NOTE | 2020-12-27 11:53 | NUR ---
DR. MALAVE SEEING PT
--- NOTE | 2020-12-27 11:58 | NUR ---
ABG DRAWN ORDERED NO ADVERSE REACTIONS NOTED
--- NOTE | 2020-12-27 12:18 | NUR ---
PAGED DR. RO HILL [phone] TO REVIEW [facility] SAMPLE REPORT CALL NUMBER [phone]
[2020-12-27] MEDS: PHENYLEPHRINE 40 MG in NACL 0.9% 250 ML IV PRN ×3 (12:27→23:13)
--- NOTE | 2020-12-27 12:28 | NUR ---
CALL BACK FROMDR. RO HILL REVIEWED ABG SAMPLE REPORT, VENTILATOR SETTINGS AND RESULTS, PULMONARY STATUS, DIAGNOSTIC/MONITOR READINGS TORBO: HHN DUONEB Q4 AND PRN FOR SOB/WHEZE; 1 AMP BICARB (AUTOMATIC SERGING MACHINE OPERATOR TO NOTIFY CLIFTON/RN); ABG IN AM; CXR IF GREATER THAN 3 DAYS
--- NOTE | 2020-12-27 12:31 | NUR ---
REBA HILL PER [facility] SAMPLE REPORT 12/27/2020 @ 12:09 HCO3 9.2 1 AMP BICARB ORDER GIVEN TO CLIFTON/SOCORRO
[2020-12-27] MEDS ORDERED: ALBUTEROL SULFATE/IPRATROPIU 3 ML SOL IH PRN (12:35)
--- NOTE | 2020-12-27 12:37 | NUR ---
RT DIEUDONNE CALLED DR. HILL WITH ABG RESULTS. DR. HILL ORDERED 1 AMP BICARB
[2020-12-27] MEDS ORDERED: SODIUM BICARBONATE 8.4% PFS 50 MEQ/50 ML SYR IVP SCH (12:48)
--- NOTE | 2020-12-27 13:14 | NUR ---
DR. LAKE SEEING PT, AWARE OF FEEDING AND HIGH RESIDUAL
--- NOTE | 2020-12-27 13:37 | NUR ---
DECREASED INSP PRESSURE WHILE MAINTAINING Vt GREATER THAN 350ml PEAK PRESSURE NOW AT [id number] CHANGED PEEP TO 24brM6X TO INCREASE SATURATION PERCENTAGE CLIFTON/RN NOTIFIED
--- NOTE | 2020-12-27 13:37 | NUR ---
SEDATED RESTING COMFORTABLE EQUAL CHEST RISE ENDOTRACHEAL SUCTION FOR SMALL SEMI THICK YELLOW SECRETIONS AIRWAY PATENT
--- NOTE | 2020-12-27 13:43 | NUR ---
SEDATED RESTING WELL GOOD CHEST RISE AIRWAY PATENT VENTILATOR CHANGES NOTED CLIFTON/RN NOTIFIED
[2020-12-27] MEDS: FOAM DRESSING TP SCH (13:58)
[2020-12-27] MEDS: GAUZE TP SCH (13:58)
--- NOTE | 2020-12-27 14:12 | NUR ---
WOUNDS PAINTED WITH BETADINE. VAP ORAL CARE PROVIDED, TEMPERATURE 97.7, TK HUGGER DECREASED TO LOW.
[2020-12-27] MEDS ORDERED: TPN PER PHARMACY MC PRN (14:30)
--- NOTE | 2020-12-27 15:03 | NUR ---
PT REPOSITIONED, WIPED DOWN, CHANGED SHEETS AND GOWN. SACRAL DRESSING CHANGED. OFFLOADED PRESSURE AREAS WITH PILLOWS Addendum: 12/27/20 at 1647 by Chely Hernández RN RN MARION CATHETER ALSO REMOVED PER DR. MALAVE'S ORDER
--- NOTE | 2020-12-27 15:08 | NUR ---
PAGED DR HILL REGARDING LOW BP AND MAXED OUT ON ALL THREE PRESSORS, AWAITING CALL BACK
--- NOTE | 2020-12-27 15:17 | NUR ---
DR. HILL CALLED BACK, INFORMED DR. HILL OF PT'S STATUS. NO ORDERS RECEIVED FROM HER.
--- NOTE | 2020-12-27 15:24 | NUR ---
CALLED CANDY (BROTHER) TO UPDATE ON PT'S STATUS. CANDY IS AWARE AND PLANS TO UPDATE FAMILY.
[2020-12-27] MEDS: ALBUTEROL SULFATE/IPRATROPIU 3 ML SOL IH SCH ×3 (15:52→23:20)
--- NOTE | 2020-12-27 15:53 | NUR ---
SEDATED GOOD CHEST RISE ENDOTRACHEAL SUCTION FOR MODERATE SEMI THICK YELLOW SECRETIONS AIRWAY PATENT POST HHN THERAPY DECREASED INSP PRESSURE TO 91ycN5Y TO MAINTAIN Vt LESS THAN 400ml INCREASED PEEP TO 10dfE6M TO IMPROVE OXYGENATION CLIFTON/RN NOTIFIED
--- NOTE | 2020-12-27 16:05 | NUR ---
GOOD CHEST RISE AND AERATION THROUGHOUT BILATERAL LUNG MONROY AIRWAY PATENT
--- NOTE | 2020-12-27 17:18 | NUR ---
PT REPOSITIONED, OFFLOADING WITH PILLOWS. TEMPERATURE 96.8 TEMPORALLY, TK HUGGER REMAINS ON LOW. VAP ORAL CARE PROVIDED. 150 ML OUTPUT FROM RECTAL TUBE, MARKED ON BAG.
--- NOTE | 2020-12-27 17:25 | NUR ---
SEDATED GUARDED GOOD CHEST RISE AND AERATION THROUGHOUT LEFT SIDE RUL RML DECREASED PRESSURE TO 47ktQ1Z TO MAINTAIN Vt LESS THAN 400ml INCREASED PEEP TO 09grB7W TO IMPROVE OXYGENATION CLIFTON/RN NOTIFIED
--- NOTE | 2020-12-27 19:18 | NUR ---
HANDOFF GIVEN TO SENIOR CLINICAL DATA MANAGER RN FOR CONTINUITY OF CARE
--- NOTE | 2020-12-27 19:50 | NUR ---
RECEIVED PT FROM DAY SHIFT ON THE FOLLOWING VENTILATOR SETTING PC PIP26, R 30, FIO2 100%, PEEP 15, SPO2 86%. B/S DIMINISHED ON AUSCULTATION. VENTILATOR PLUGGED INTO THE RED OUTLET, ALARM SET AUDIBLE. AMBU BAG @ BEDSIDE, PT HAS GOOD CHEST RISE AND FALL. WILL CONTINUE TO MONITOR.
--- NOTE | 2020-12-27 20:00 | NUR ---
RECEIVED PT COMATOS RESPONDING TO NO KINGOF STIMULIS. HE HAS BEEN OF THE PROPOFOL SINCE LAST SHIFT.HE IS MAXED OUT ON LEVOPHED, NEOEPYNEPHRINE, AND VASOPRESSIN. B/P IS WNL AT THIS TIME. O2 SAT=88% WITHFIO2 OF 100%. PT REMAINS ORALLY INTUBATED WITH ORDERING SETTING.PT HAS WARMING BLANKET . HIS TEMPRATURE IS 97.6 AT THIS MOMENT
[2020-12-27] MEDS: MORPHINE SULFATE 50 MG in NACL 0.9% 45 ML IV PRN (20:25)
[2020-12-28] VITALS (21 sets, daily range): BP systolic 0–122; BP diastolic 0–101
[2020-12-28] MEDS: VASOPRESSIN 20 UNITS in NACL 0.9% 250 ML IV SCH ×2 (00:49→08:43)
--- NOTE | 2020-12-28 01:15 | NUR ---
DECREASED PRESSURE TO 88weP6R TO MAINTAIN Vt BETWEEN 350 AND 400ml. INCREASED PEEP TO 16 cmH2O TO IMPROVE OXYGENATION SPO2 88%. NOTIFIED SOCORRO ELIZABETH.
[2020-12-28] MEDS: ALBUTEROL SULFATE/IPRATROPIU 3 ML SOL IH SCH ×2 (03:01→07:00)
[2020-12-28] MEDS: PHENYLEPHRINE 40 MG in NACL 0.9% 250 ML IV PRN ×3 (03:46→12:07)
[2020-12-28] MEDS: DEXT 5% / NACL 0.9% 500 ML IV SCH ×2 (06:00→06:10)
[2020-12-28] MEDS: Z-GUARD PASTE TP SCH ×2 (06:00→13:35)
[2020-12-28 06:36] LABS: ANION GAP 15.2 (8-16); CARBON DIOXIDE 21.5 mmol/L (21-32); POTASSIUM 4.7 mmol/L (3.5-5.1)
[2020-12-28 06:38] LABS: ALBUMIN 1.3 g/dL (3.4-5.0)
[2020-12-28] MEDS ORDERED: DEXTROSE 50% 50 ML SYR IVP ONE (06:58)
[2020-12-28] MEDS ORDERED: DEXTROSE 50% 50 ML SYR IVP SCH (07:10)
[2020-12-28] MEDS: NOREPINEPHRINE 16 MG in DEXTROSE 5% 250 ML IV PRN (07:15)
[2020-12-28] MEDS ORDERED: PHENYLEPHRINE 10 MG/ML VIAL ONE (07:28)
[2020-12-28 07:37] LABS: BASOPHILS # (AUTO) 0.2 K/uL (0.00-0.22); BASOPHILS % (AUTO) 1.1 % (0.0-2.0); EOSINOPHILS # (AUTO) 0.1 K/uL (0-0.4); EOSINOPHILS % (AUTO) 0.4 % (0.0-4.0); HEMATOCRIT 21.3 % (36-52); LYMPHOCYTES # (AUTO) 1.3 K/uL (2.0-11.5); LYMPHOCYTES % (AUTO) 9.2 % (20.5-51.1); MEAN CORPUSCULAR HEMOGLOBIN 31 pg (27-31); MEAN CORPUSCULAR HGB CONC 31 g/dL (33-37); MEAN CORPUSCULAR VOLUME 99.2 fL (80-94); MONOCYTES # (AUTO) 0.5 K/uL (0.8-1.0); MONOCYTES % (AUTO) 3.4 % (1.7-9.3); NEUTROPHILS # (AUTO) 12.4 K/uL (1.8-7.7); NEUTROPHILS % (AUTO) 85.9 % (42.2-75.2); PLATELET COUNT (AUTO) 117 K/uL (140-450); RED BLOOD CELL COUNT(AUTO) 2.14 MIL/uL (4.20-6.10); RED CELL DISTRIBUTION WIDTH 18.2 % (11.6-13.7); WHITE BLOOD COUNT (AUTO) 14.5 K/uL (4.8-10.8)
[2020-12-28 08:07] LABS: HEMOGLOBIN 6.6 g/dL (12.0-18.0)
[2020-12-28] MEDS ORDERED: HYDROCOLLOID DRESSING TP SCH (09:00)
--- NOTE | 2020-12-28 09:07 | NUR ---
Neosynephrine on EMAR taken out of pyxis by color checker, not administered by day shift.
[2020-12-28] MEDS: DEXTROSE 50% 50 ML SYR IVP PRN ×2 (09:09→10:49)
[2020-12-28] MEDS: POLYETHYLENE GLYCOL 17 GM/PKT NG SCH (10:07)
[2020-12-28] MEDS: PANTOPRAZOLE 40 MG INJ VIAL IVP SCH (10:08)
[2020-12-28] MEDS: ZINC SULF 220 MG CAP PO SCH (10:08)
[2020-12-28] MEDS: SODIUM BICARBONATE 650 MG TAB PO SCH (10:08)
[2020-12-28] MEDS: ASCORBIC ACID 500 MG TAB PO SCH (10:08)
[2020-12-28] MEDS: FAMOTIDINE 20 MG/2 ML VIAL IV SCH (10:13)
[2020-12-28 10:22] LABS: MAGNESIUM 1.8 mg/dL (1.8-2.4); PHOSPHORUS 8.3 mg/dL (2.5-4.9)
[2020-12-28] MEDS ORDERED: INSULIN LISPRO SLIDING SCALE 100 UNITS/ML VIAL SUBQ PRN (11:00)
[2020-12-28] MEDS ORDERED: BLOOD GLUCOSE MONITORING 1 DEV DEV MC SCH (12:00)
[2020-12-28] MEDS: FOAM DRESSING TP SCH (13:35)
[2020-12-28] MEDS: GAUZE TP SCH (13:35)
--- NOTE | 2020-12-28 16:42 | NUR ---
Shift summary of care: Received patient in bed, obtunded, with full support of mechanical ventilator, three IV drips vasopressors. Vital signs very unstable. Patient is not arousable no longer, digits on both hands and feet were cold to touch, toes were cyanotic and sole of feet. MDs made bedside visit, charge nurse as well and made phone calls to family and updated of patient's state of health. Brother visited patient around 1400 today, said his prayers to the patient, left the facility. Around 1508 code blue called, patient was pulseless on the monitor and palpation. Code team came and attended to the patient with Dr Carter leading the code. At 1520, time of was called by Dr Carter, auscultation of patient's chest, absent of air and no heartbeat heard. Postmortem care provided, extubated, removed life lines from patient, placed in clean sheets. Brothvandana Jacobson came back, saw patient from curtain isolation window. Charge nurse attended to the brother and given family support of patient passing. Belongings noted with patient's clothes, a cellphone and a hand almond blancher, given to patient's brother Kavon. [employer] notified, patient body is release and no investigation needed. Events documented, all care providers notified.
[2020-12-28] MEDS ORDERED: FAMOTIDINE IV SCH ×3 (20:00)
[2020-12-28] MEDS ORDERED: AMINO ACIDS 8.5% IV SCH ×3 (20:00)
[2020-12-28] MEDS ORDERED: DEXTROSE 50% IV SCH ×3 (20:00)
== END 2020-12-28 15:20 | DRG 870 ==
LOC: MED 15:02 → MLD 21:05 → MIC 11-28 02:50
PROVIDERS: ADMIT Emergency Medicine; ATTEND Emergency Medicine
PROC: 5A1955Z Respiratory Ventilation, Greater than 96 Consecutive Hours (ICD-10-PCS; 2020-11-27)
PROC: 0BH17EZ Insertion of Endotracheal Airway into Trachea, Via Natural or Artificial Opening (ICD-10-PCS; 2020-11-27)
PROC: 5A09357 Assistance with Respiratory Ventilation, Less than 24 Consecutive Hours, Continuous Positive Airway Pressure (ICD-10-PCS; 2020-11-27)
PROC: XW13325 Transfusion of Convalescent Plasma (Nonautologous) into Peripheral Vein, Percutaneous Approach, New Technology Group 5 (ICD-10-PCS; 2020-11-29)
PROC: XW033E5 Introduction of Remdesivir Anti-infective into Peripheral Vein, Percutaneous Approach, New Technology Group 5 (ICD-10-PCS; 2020-11-29)
PROC: 5A1D70Z Performance of Urinary Filtration, Intermittent, Less than 6 Hours Per Day (ICD-10-PCS; 2020-12-22)
PROC: 02HV33Z Insertion of Infusion Device into Superior Vena Cava, Percutaneous Approach (ICD-10-PCS; 2020-12-22)
PROC: B548ZZA Ultrasonography of Superior Vena Cava, Guidance (ICD-10-PCS; 2020-12-22)
PROC: 5A1D70Z Performance of Urinary Filtration, Intermittent, Less than 6 Hours Per Day (ICD-10-PCS; 2020-12-23)
PROC: 5A1D70Z Performance of Urinary Filtration, Intermittent, Less than 6 Hours Per Day (ICD-10-PCS; 2020-12-25)
PROC: 30233N1 Transfusion of Nonautologous Red Blood Cells into Peripheral Vein, Percutaneous Approach (ICD-10-PCS; 2020-12-26)
PROC: 5A1D70Z Performance of Urinary Filtration, Intermittent, Less than 6 Hours Per Day (ICD-10-PCS; principal; 2020-12-27)
DX: A41.9 Sepsis, unspecified organism (principal); U07.1 COVID-19; J12.82 Pneumonia due to coronavirus disease 2019; E43 Unspecified severe protein-calorie malnutrition; J80 Acute respiratory distress syndrome; R65.21 Severe sepsis with septic shock; N17.9 Acute kidney failure, unspecified; E87.1 Hypo-osmolality and hyponatremia; G93.40 Encephalopathy, unspecified; E87.4 Mixed disorder of acid-base balance; I48.0 Paroxysmal atrial fibrillation; R13.11 Dysphagia, oral phase; R74.01 Elevation of levels of liver transaminase levels; I10 Essential (primary) hypertension; Z68.28 Body mass index [BMI] 28.0-28.9, adult
CPT/HCPCS: 36415; 36600; 70450; 71045; 74018; 76700; 80048; 80053; 82040; 82247; 82248; 82272; 82550; 82553; 82803; 83036; 83605; 83615; 83690; 83735; 83880; 84100; 84436; 84439; 84443; 84478; 84479; 84484; 85014; 85018; 85025; 85379; 85610; 85651; 85730; 86140; 86704; 86709; 86803; 86886; 86900; 86901; 86920; 87040; 87081; 87340; 92950; 93005; 93971; 94003; 94640; 99285; A4330; A9153; C9113; J0153; J0282; J0330; J0696; J1100; J1160; J1644; J1815; J2060; J2270; J2370; J2704; J3010; J3480; J3490; J7030; J7042; J7060; P9016; P9017; P9046; U0003